=== PATIENT | male | born 1930 ===

== ENCOUNTER 2020-05-08 09:07 | Inpatient (IN) | payer MEDICARE ==
[~2020-05-08] VITALS: Ht 190.5 cm; Wt 100.9 kg
[2020-05-08] MEDS ORDERED: ONDANSETRON 4 MG (ZOFRAN) ORAL DISSOLVE TAB PO PRN (09:45)
[2020-05-08] MEDS ORDERED: FLEET ENEMA ADULT 1 EA BTL PR PRN (09:45)
[2020-05-08] MEDS ORDERED: diphenhydrAMINE 25 MG TAB (BENADRYL) PO PRN (09:45)
[2020-05-08] MEDS ORDERED: CALCIUM CARBONATE 500 MG (TUMS) TAB.CHEW PO PRN (09:45)
[2020-05-08] MEDS ORDERED: ALPRAZolam 0.25 MG (XANAX) TAB PO PRN (09:45)
[2020-05-08] MEDS ORDERED: LOPERAMIDE 2 MG (IMODIUM) TABLET PO PRN (09:45)
[2020-05-08] MEDS ORDERED: LACTULOSE SYRUP 10GM/15ML (ENULOSE) 30ML UDC PO PRN (09:45)
[2020-05-08] MEDS ORDERED: BISACODYL 10 MG SUPP (DULCOLAX) PR PRN (09:45)
[2020-05-08] MEDS ORDERED: guaiFENesin/CODEINE (ROBITUSSIN AC) 10ML UDC PO PRN (09:45)
[2020-05-08] MEDS ORDERED: MELATONIN 3 MG TABLET PO PRN (09:45)
--- NOTE | 2020-05-08 13:00 | NUR ---
ANA MARÍA ABRAHAM admitted to room 223 , with an admitting diagnosis of RIGHT MILDRED, on 05-08-20 from [facility] via WHEELCHAIR, accompanied by STAFF.ANA MARÍA ABRAHAM introduced to surroundings, call light, bed controls, phone, TV, temperature control, lights, meal times, smoking policy, visitor policy, side rail policy, bathrooms and showers. Patient Rights given to patient in the handbook.ANA MARÍA ABRAHAM verbalizes understanding that [facility] is not responsible for the loss or damage to any personal effects or valuables that are kept in the patients posession during their hospitalization. The following Patient Care Plans were discussed with the PT: Discharge Planning, IMPAIRED MOBILITY AND FALLS. ANA MARÍA ABRAHAM verbalizes understanding of Interdisciplinary Patient Education. Patient received Patient Rights Booklet, which includes Privacy Act Statement and Data Collection Information Summary.
[2020-05-08] MEDS ORDERED: WARF4TAB3 PO (13:13)
[2020-05-08] MEDS ORDERED: ACHD5005 PO (13:13)
[2020-05-08] MEDS ORDERED: LOSA50TA63 PO (13:13)
[2020-05-08] MEDS ORDERED: ISOS30TA3 PO (13:13)
[2020-05-08] MEDS ORDERED: CRV25T PO (13:13)
--- NOTE | 2020-05-08 13:14 | NUR ---
MED REC WAS ENTERED USING THE [place] DISCHARGE ORDERS Addendum: 05/13/20 at 1434 by ALPHONSO COSTA CPhT SPOKE WITH THE PT AND WENT THRU THE EXT MED HISTORY TO COMPLETE THE MED REC I REMOVED HYDROCODONE 5/325MG FROM THE MED REC DUE TO THE PT NOT TAKING PRIOR TO [facility] FUROSEMIDE 40MG PRN WAS ADDED TO THE MED REC DUE TO PT TAKING PRIOR TO HOSPITAL STAY FLOMAX 0.4MG WAS FILLED ON 05-04-2020 #30 HOWEVER PT IS NOT FAMILIAR WITH THIS MEDICATIONS- FOR THIS REASON I DID NOT INCLUDE ON THE MED REC
--- NOTE | 2020-05-08 14:47 | Physical Therapy Evaluation ---
PT Evaluation-General Medical Diagnosis Admission Date May 08, 2020 at 13:00 Medical Diagnosis: R MILDRED Onset Date: Apr 17, 2020 Therapy Diagnosis Therapy Diagnosis: Impaired mobility, strength and ROM Precautions Precautions/Isolations: Fall Prevention, Standard Precautions Referral Physician: Monty Reason for Referral: Evaluation/Treatment Medical History Additional Medical History fib, skin cancer, CAD with bypass of 5 vessels, depression, HTN, ventricular arrhythmia, pacemaker Reviewed History: Yes Social History Home: Single Level Current Living Status: Significant Other Entry Into Home: Ramp, Stairs With Railing PT Steps Into Home: 4 Prior Prior Level of Function SCALE: Activities may be completed with or without assistive devices. 8-Rxwflmaxhg-bsmtqpc completes the activity by him/herself with no assistance from a helper. 5-Set-up or Clean-up Assistance-helper sets up or cleans up; patient completes activity. [place] assists only prior to or following the activity. 4-Supervision or Touching Assistance-helper provides verbal cues and/or touching/steadying and/or contact guard assistance as patient completes activity. Assistance may be provided throughout the activity or intermittently. 3-Partial/Moderate Assistance-helper does LESS THAN HALF the effort. [place] lifts, holds or supports trunk or limbs, but provides less than half the effort. 2-Substantial/Maximal Assistance-helper does MORE THAN HALF the effort. [place] lifts or holds trunk or limbs and provides more than half the effort. 6-Ncfzqeuuc-okpmig does ALL the effort. Patient does none of the effort to complete the activity. Or, the assistance of 2 or more helpers is required for the patient to complete the activity. If activity was not attempted, code reason: 7-Patient Refused. 9-Not Applicable-not attempted and the patient did not perform the activity before the current illness, exacerbation or injury. 10-Not Attempted due to Environmental Limitations-(lack of equipment, weather restraints, etc.). 88-Not Attempted due to Medical Conditions or Safety Concerns. Bed Mobility: 6 Transfers (B,C,W/C): 6 Gait: 6 Stairs: 6 Wheelchair Mobility: 9 Indoor Mobility (Ambulation): Independent Stairs: Independent Prior Devices Use: Walker (4 wheeled) PT Evaluation-Current Subjective Pt presents sitting upright in vehicle. Pt agrees to PT. Pt reports no pain, but that pain in R hip can come on suddenly when standing. Pt/Family Goals Return to home Objective Patient Orientation: Person, Place, Time, Eyes Open, Situation ROM/Strength ROM Lower Extremities Limited R knee ext and hip precautions; otherwise WFL Strength Lower Extremities R Hip flex: 3/5 L Hip flex: 4/5 R Knee ext: 4/5 L Knee ext: 5/5 R Knee flex: 4/5 L Knee flex: 4/5 Sensory Vision: Wears Glasses Hearing: Functional Hand Dominance: Left Sensation Right Lower Extremit: Intact Sensation Left Lower Extremity: Intact Sensation Lower Extremities BLE sensation intact to light touch L2-S2 Transfers Roll Left to Right (QC): 6 Sit to Lying (QC): 3 Lying to Sitting/Side of Bed(Q: 3 Sit to Stand (QC): 3 Chair/Hqf-ui-Gtpll Xfer(QC): 3 Toilet Transfer (QC): 3 Car Transfer (QC): 3 Pt demonstrated bed rolling independently. Pt required min assist with sit<- >lying to act as handrail. Pt requires min assist with standing transfers. Pt reenacted car transfer using nustep as to not violate hip precautions. Gait Does the Patient Walk?: Yes Mode of Locomotion: Both Anticipated Mode of Locomotion: Walk Walk 10 feet (QC): 4 Walk 50 ft with 2 Turns(QC): 88 Walk 150 ft (QC): 88 Walking 10ft/uneven surface-QC: 3 Distance: 20' Gait Assistive Device: FWW Comments/Gait Description Pt fatigues quickly with ambulation; pt ambulates with B bent knees and is not consistent with touching R heel to ground. Wheelchair Training Does the Pt Use a Wheelchair?: Yes Distance: 150'x4 Wheel 50 ft with 2 turns (QC): 4 Wheel 150 ft (QC): 4 Type of Wheelchair: Manual Pt propels self using B UE but is slow at progression and appears to be fighting resistance with this Stairs 1 Step (curb) (QC): 88 4 Steps (QC): 88 12 Steps (QC): 88 Balance Sitting Static: Normal Sitting Dynamic: Normal Standing Static: Good Standing Dynamic: Fair Picking up an Object (QC): 88 Treatment Standing balance plus reaching in parallel bars Assessment/Needs Pt requires consistent reminders of hip precautions; pillow is placed between legs in WC and in bed to prevent IR. Pt requires momentum of forward trunk lean to stand up; this causes him to stand up bent over and then using UE to straighten trunk upright. Pt cued to standing with his knees straight but is unable to do so. Co-treated with OT due to patient's limitations in strength, mobility, and ability to coordinated UEs and LEs. Rehab Potential: Fair PT Short Term Goals Short Term Goals Time Frame: May 15, 2020 Roll Left & Right: 6 Sit to lyin Lying to sitting on side of be: 4 Sit to stand: 4 Chair/fgt-rx-njhab transfer: 4 Walk 10 feet: 4 Walk 50 feet with two turns: 4 1 step (curb): 3 PT Custodial Goals Custodial Goals PT Custodial Goals Time Frame: May 29, 2020 Roll Left & Right (QC): 6 Sit to Lying (QC): 6 Lying-Sitting on Side/Bed(QC): 6 Sit to Stand (QC): 6 Chair/Zhz-xi-Veqrf Xfer(QC): 6 Toilet Transfer (QC): 6 Car Transfer (QC): 6 Does the Patient Walk: Yes Walk 10 feet (QC): 4 Walk 50ft with 2 Turns (QC): 4 Walk 150 ft (QC): 4 Walking 10ft on Uneven Surface: 4 1 Step (curb) (QC): 4 4 Steps (QC): 4 12 Steps (QC): 88 Picking up an Object (QC): 4 Wheel 50 feet with 2 turns (QC: 6 Type: Manual Wheel 150 feet: 6 Type: Manual PT Plan Problem List Problem List: Activity Tolerance, Functional Strength, Safety, Balance, Gait, Transfer, Bed Mobility, ROM Treatment/Plan Treatment Plan: Continue Plan of Care Treatment Plan: Bed Mobility, Education, Functional Activity Manuela, Functional Strength, Group Therapy, Gait, Safety, Therapeutic Exercise, Transfers Treatment Duration: May 22, 2020 Frequency: At least 5 of 7 days/Wk (IRF) Estimated Hrs Per Day: 1.5 hours per day Patient and/or Family Agrees t: Yes Safety Risks/Education Patient Education: Gait Training, Transfer Techniques, Reviewed Precautions, Correct Positioning, W/C Management, Safety Issues Teaching Recipient: Patient Teaching Methods: Demonstration, Discussion Response to Teaching: Reinforcement Needed Discharge Recommendations Plan Pt will work on bed mobility, transfers, gait training, balance, and therapeutic exercise to address functional deficits. Therapy Discharge Recommendati: Home & Family Time/GCodes Time In: 1300 Time Out: 1440 Total Billed Treatment Time: 90 Total Billed Treatment 1 visit EVM 10' GT 20' NM 20' FA 40' 6830-4800 PT eval; 8513-0097 OT eval; [id number] co-treated with OT. PT assisted with transfers, gait training, and standing balance while OT assisted with ADLs and UE reaching. EAMON HENDRICKSON PT May 08, 2020 14:47
--- NOTE | 2020-05-08 15:19 | Occupational Therapy Eval ---
OT Evaluation-General/PLF Medical Diagnosis Admission Date May 08, 2020 at 13:00 Medical Diagnosis: R MILDRED Onset Date: May 08, 2020 Therapy Diagnosis Therapy Diagnosis: decreased ADL status, weakness Precautions Precautions/Isolations: Fall Prevention, Standard Precautions Comments hip precautions Weight Bear Status Weight Bearing Restriction: Weight Bearing/Tolerated Location Restriction: R LE Referral Physician: Monty Anderson Reason: Evaluation/Treatment Medical History Additional Medical History afib, skin cancer, CAD with bypass of 5 vessels, depression, HTN, ventricular arrhythmia, pacemaker Current History R MILDRED 04/17/2020 Social History Home: Single Level (mobile) Current Living Status: Significant Other Entry Into Home: Ramp, Stairs With Railing Steps Into Home: 4 ADL-Prior Level of Function SCALE: Activities may be completed with or without assistive devices. 8-Iygbrbvatf-vnjnfez completes the activity by him/herself with no assistance from a helper. 5-Set-up or Clean-up Assistance-helper sets up or cleans up; patient completes activity. [place] assists only prior to or following the activity. 4-Supervision or Touching Assistance-helper provides verbal cues and/or touching/steadying and/or contact guard assistance as patient completes activity. Assistance may be provided throughout the activity or intermittently. 3-Partial/Moderate Assistance-helper does LESS THAN HALF the effort. [place] lifts, holds or supports trunk or limbs, but provides less than half the effort. 2-Substantial/Maximal Assistance-helper does MORE THAN HALF the effort. [place] lifts or holds trunk or limbs and provides more than half the effort. 2-Frawisjvf-eecbqo does ALL the effort. Patient does none of the effort to complete the activity. Or, the assistance of 2 or more helpers is required for the patient to complete the activity. If activity was not attempted, code reason: 7-Patient Refused. 9-Not Applicable-not attempted and the patient did not perform the activity before the current illness, exacerbation or injury. 10-Not Attempted due to Environmental Limitations-(lack of equipment, weather restraints, etc.). 88-Not Attempted due to Medical Conditions or Safety Concerns. ADL PLOF Comments Pt indicates he was independent with all ADLS and functional mobility using FWW. He lives in a mobile home with his who he takes care of. Pt has a walk in shower with a shower chair, he indicates he is getting a hospital bed. Self Care: Independent Functional Cognition: Independent DME/Equipment: Bath Chair, Shower DME/Equipment Comments FWW OT Current Status Subjective Pt seated in w/c, agreeable to OT evaluation and tx. Pt indicates 0/10 pain at rest. Mental Status/Objective Patient Orientation: Person, Place, Time, Situation Current Glasses/Contacts: Yes Hearing Aids: No Dentures/Partials: No Hand Dominance: Left Upper Extremity ROM WFL Upper Extremity Coordination WFL Upper Extremity Sensation pt reports decreased sensation in fingertips Upper Extremity Strength grossly 4+/5 ADL-Treatment Eating (QC): 6 (Pt independent with using utensils, cutting food, and bringing food to his mouth.) Oral Hygiene (QC): 4 (Pt required verbal cues to maintain hip precautions during task, pt completed seated at sink) Shower/Bathe Self (QC): 7 (pt declined, stating he has already showered today.) Upper Body Dressing (QC): 7 Lower Body Dressing (QC): 7 On/Off Footwear (QC): 1 (based on clinical judgement and hip precautions, pt would require total assistance to maintain hip precautions) Toileting Hygiene (QC): 7 Other Treatments [id number] OT evaluation: OT educated pt on purpose and benefits of OT, he verbalized understanding. He then provided information about PLOF and home set up, then participated in UE screen. [id number] OT/PT cotreat: OT/PT cotreat due to skill of 2 clinicians required wh ich a rehabilitation therapist cannot perform in order to coordinate UE/LEs, maintain hip precautions throughout tx, and improve standing endurance and balance. OT focused on UE placement, cues for sequencing and safety, functional reaching while standing, and UE strength/endurance while PT focused on LE placement, gross overall movements, LE placement, transfers. Pt unable to recall any hip precautions, stating he was never educated on precautions. Pt seated in w/c in therapy gym, pt stood at w/c, using FWW over an uneven surface with w/c follow. During functional mobility on uneven surface, pts knees buckled requiring assistance to steady, pt regained balance, then sat in w/c for a rest break. Pt indicated his legs "gave out". After a rest break, pt then performed a simulated car transfer. Pt indicates he is tired, requiring another rest break. Pt attempted to perform functional mobility with w/c follow, but had difficulty straightening his knees and standing upright, even with skilled cues. Pt took a seated rest break in recliner. In order to increase BUE strength and functional, pt instructed to self propel w/c using UEs, with assistance to maintain straight line and through doorways. Pt required skilled cues to maintain hip precautions while seated, in order to assist pt with maintaining precautions a pillow was placed between pt's legs. Pt then sat at sink to brush his teeth, pt required skilled cues to maintain hip precautions as pt attempted to lean forward past 90* to the sink instead of using bucket provided to pt. Pt's lunch arrived and he ate a portion of a sandwich. Pt then taken back to therapy gym to parallel bars where he complete functional reaching activity to increase dynamic standing balance. PT assisted pt with standing at parallel bars, while OT completed reaching task with pt, pt completed 2 sets of stands, with x2 reaching with each hand. Pt able to stand for ~3 mins each trial. Pt returned to room, transferring to bed. Post OT/PT cotreat, pt laying in bed, call light in reach and all needs met. Education OT Patient Education: Correct positioning, Energy conservation, Exercise program, Modified ADL techniques, Progress toward Goal/Update tx plan, Purpose of tx/functional activities, Reviewed precautions, Rehab process, Safety issues, Transfer techniques Teaching Recipient: Patient Teaching Methods: Discussion Response to Teaching: Verbalize Understanding OT Chemical Tank Worker Goals Chemical Tank Worker Goals Time Frame: May 31, 2020 Eating (QC): 6 Oral Hygiene (QC): 6 Toileting Hygiene (QC): 6 Shower/Bathe Self (QC): 6 Upper Body Dressing (QC): 6 Lower Body Dressing (QC): 6 On/Off Footwear (QC): 6 Additional Goals: 1-Demonstrate ADL Tasks, 2-Verbalize Understanding, 3- ImproveStrength/Manuela 1=Demonstrate adherence to instructed precautions during ADL tasks. 2=Patient will verbalize/demonstrate understanding of assistive devices/modifications for ADL. 3=Patient will improve strength/tolerance for activity to enable patient to perform ADL's. OT Education/Plan Problem List/Assessment Assessment: Decreased Activ Tolerance, Decreased UE Strength, Impaired Funct Balance, Impaired I ADL's, Impaired Self-Care Skills Discharge Recommendations Plan/Recommendations: Continue POC Equpiment Recommendations-D/C: Hip Kit Treatment Plan/Plan of Care Patient would benefit from OT for education, treatment and training to promote independence in ADL's, mobility, safety and/or upper extremity function for ADL's. Plan of Care: ADL Retraining, Functional Mobility, Group Exercise/Act as Ind, UE Funct Exercise/Act Treatment Duration: May 31, 2020 Frequency: At least 5 of 7 days/Wk (IRF) Estimated Hrs Per Day: 1.5 hours per day Agreement: Yes Rehab Potential: Good Time/GCodes Start Time: 13:10 Stop Time: 14:40 Total Time Billed (hr/min): 90 Billed Treatment Time 1475-1559 OT evaluation, [id number] OT/PT cotreat 1, EVM (10'), ADL (15'), FA 4 (65') LEILANI CARSON OT May 08, 2020 15:19
[2020-05-08 15:21] VITALS: BP 143/65
[2020-05-08] MEDS ORDERED: FLU QUAD HIGH DOSE 240 MCG/0.7 ML 2020-21 (FLUZONE) IM ONE (15:45)
--- NOTE | 2020-05-08 16:19 | Progress Note ---
RICARDO MENDOZA MED STUDENT 05/08/20 1619: Progress Note HPI: This is an 89 YO male who had a right hip replacement by Dr. Power on 04/17 for osteoarthritis. He was initially discharged home, but had multiple falls and bec tova dehydrated. Pt was decreasing his fluid intake at home so he could limit having to go to the bathroom since he had a hard time getting around. Pt was admitted for rehydration in [place] and now comes to inpatient rehab to regain strength and mobility. Pt normally lives in a mobile home with his in [place], [place] and says they take care of each other. He is now having some pain in his right hip, but is able to ambulate with a walker, and complains of neuropathy. History limited by pt being a poor historian; pt easily gets distracted and goes off on tangents during conversation. PMHx: CAD with bypass of 5 vessels Cardiomyopathy, EF 30% HTN depression neuropathy Afib pacemaker Allergies/adverse rxns: Lisinopril Medications: Carvedilol Hydrocodone/Acetaminophen Isosorbide mononitrate Losartan Warfarin ROS: limited by pt being poor historian, but only complains of right hip pain Physical Exam: General: WD/SN, no acute distress Head: NC/AD Eyes: PERRL, EOMI ENT: normal external appearance, mucosa moist, nares patent Heart: irregularly irregular, no murmurs Lungs: no respiratory distress or accessory muscle use; CTAB Abdomen: soft, nontender, nondistended Extremities: multiple bruises on upper extremities; moves all extremities, limited on RLE Neuro/Psych: alert, awake, normal mood/affect, very talkative Assessment/Plan: Right hip replacement On Warfarin CAD w/ hx of CABG cardiomyopathy w/ reduced EF HTN Afib w/ pacemaker Advanced age REHAB/MEDICAL ASSESSMENT AND PLAN: REHAB IMPAIRMENT GROUP: Right hip dislocation The comorbidities that impact the patients function and/or functional outcome by: chronic pain/neuropathy, advanced age Rehab treatment will consist of: PT, OT will focus on improving strength, exercise tolerance, functional mobility, transfers, gait, balance, and coordination of upper and lower extremity movements. BARRIERS TO DISCHARGE: Pain, advanced age ESTIMATED LOS: 10-14 days DISPOSITION: Home PROGNOSIS: Fair REHABILITATION GOALS: 1. PT OT will focus on regaining strength, balance, coordination and exercise tolerance in order to return home to live independently with his . YANETH CASTRO DO 05/08/202101: Supervisory-Addendum Brief Verification & Attestation Participated in pt care: history, MDM, physical Personally performed: exam, history, MDM, supervision of care Care discussed with: Medical Student Procedures: n/a Results interpretation: Verified all documentation Verification and Attestation of Medical Student E/M Service A medical student performed and documented this service in my presence. I reviewed and verified all information documented by the medical student and made modifications to such information, when appropriate. I personally performed the physical exam and medical decision making. Yaneth Castro, May 08, 2020,21:02 RICARDO MENDOZA MED STUDENT May 08, 2020 16:19 YANETH CASTRO DO May 08, 2020 21:02
[2020-05-08] MEDS: ENOXAPARIN 40 MG/0.4 ML (LOVENOX) SYR SC SCH (17:05)
[2020-05-08 18:42] VITALS: BP 143/65
[2020-05-08] MEDS: polyethylene glycoL POWDER 17 GM (MIRALAX) PACK PO SCH (19:53)
[2020-05-08] MEDS: SENNA W/DOCUSATE (SENOKOT S) TABLET PO SCH (19:54)
[2020-05-08] MEDS: HYDROcodone/APAP 5 MG/325 MG (LORTAB) TAB PO PRN (20:24)
[2020-05-08] MEDS: CARVEDILOL 12.5 MG (COREG) TABLET PO SCH (20:24)
--- NOTE | 2020-05-08 21:06 | PM&R Post Admission Assessment ---
PM&R Date of Visit: May 08, 2020 Time of Visit: 14:00 History of Present Illness CC: Debility with falls HPI: This is an 89yoWM patient I transferred from [facility] after an observation stay for dehydration and falls since surgery 04/17/[address] Power on 04/17/20. PLOF was the use of AD at times due to pain in the right hip. Lives alone but family is involved. SLUMS was 9 at [facility] by [facility] screen. CC: Debility with multiple falls following right hip replacement HPI: This is an 89yoWM Pt known to me from consultation at [facility] after he underwent a right hip replacement on 04/17/[address] Power. It was all arranged for him to go to the inpatient rehab facility from discharge but he changed his mind and decided he didnt want to go but started having falls, severe weakness and overall decline in status and he was found to be dehydrated with severe weakness overall so he was placed on gentle IV fluids, checked labs, no evidence of any type of abnormality, INR 2.7 on Coumadin and the goal would be to move onto inpatient rehab which was successful today. Apparently later on I found out he previously had a UTI so I will check urine specimen and will continue all home medication except for Coumadin since his INR was super- therapeutic at 3.6 today. His prior level of functioning was independent and it is concerning that I had a SLUM score evaluated for the Pt and he score a 9/30, so we will need to have close monitoring for falls and impulsivity and dementia. HPI: This is an 89 YO male who had a right hip replacement by Dr. Power on 04/17 for osteoarthritis. He was initially discharged home, but had multiple falls and became dehydrated. Pt was decreasing his fluid intake at home so he could limit having to go to the bathroom since he had a hard time getting around. Pt was ad mitted for rehydration in [place] and now comes to inpatient rehab to regain strength and mobility. Pt normally lives in a mobile home with his in [place], [place] and says they take care of each other. He is now having some pain in his right hip, but is able to ambulate with a walker, and complains of neuropathy. History limited by pt being a poor historian; pt easily gets dist racted and goes off on tangents during conversation. PMHx: CAD with bypass of 5 vessels Cardiomyopathy, EF 30% HTN depression neuropathy Afib pacemaker Allergies/adverse rxns: Lisinopril Medications: Carvedilol Hydrocodone/Acetaminophen Isosorbide mononitrate Losartan Warfarin ROS: limited by pt being poor historian, but only complains of right hip pain Physical Exam: General: WD/SN, no acute distress Head: NC/AD Eyes: PERRL, EOMI ENT: normal external appearance, mucosa moist, nares patent Heart: irregularly irregular, no murmurs Lungs: no respiratory distress or accessory muscle use; CTAB Abdomen: soft, nontender, nondistended Extremities: multiple bruises on upper extremities; moves all extremities, limited on RLE Neuro/Psych: alert, awake, normal mood/affect, very talkative Assessment/Plan: Right hip replacement On Warfarin CAD w/ hx of CABG cardiomyopathy w/ reduced EF HTN Afib w/ pacemaker Advanced age REHAB/MEDICAL ASSESSMENT AND PLAN: REHAB IMPAIRMENT GROUP: Right hip dislocation The comorbidities that impact the patients function and/or functional outcome by: chronic pain/neuropathy, advanced age Rehab treatment will consist of: PT, OT will focus on improving strength, exercise tolerance, functional mobility, transfers, gait, balance, and coordination of upper and lower extremity movements. BARRIERS TO DISCHARGE: Pain, advanced age ESTIMATED LOS: 10-14 days DISPOSITION: Home PROGNOSIS: Fair REHABILITATION GOALS: 1. PT OT will focus on regaining strength, balance, coordination and exercise tolerance in order to return home to live independently with his . Past Gfiqeql-Kjrqrc-Aaxpmj Hx Past Med/Social Hx: Reviewed Nursing Past Med/Soc Hx, Reviewed and Corrections made Patient Social History Marrital Status: single Employed/Student: retired Alcohol Use: Denies Use Recreational Drug Use: No Smoking Status: Former Smoker Former Smoker, Quit: May 08, 1969 Physical Abuse Screen: No Sexual Abuse: No Recent Foreign Travel: No Contact w/other who traveled: No Recent Hopitalizations: Yes Recent Infectious Disease Expo: No Immunizations Up To Date Date of Pneumonia Vaccine: Apr 25, 2018 Seasonal Allergies Seasonal Allergies: No Past Medical History Currently Using CPAP: No Currently Using BIPAP: No Cardiac: Atrial Fibrillation, Hypertension Musculoskeletal: Arthritis Cancer: Skin What Type of Treatment Did You: Surgical Intervention Psychosocial: Depression History of Blood Disorders: No Prior Level of Function Bed Mobility: 6 Transfers: 6 Gait: 6 Stairs: 6 Wheelchair Mobility: 9 Indoor Mobility (Ambulation): Independent Stairs: Independent Prior Devices Use: Walker (4 wheeled) Self Care: Independent Functional Cognition: Independent Current Level of Fuctioning Roll Left to Right: 6 Sit to Lyin Lying to Sitting/Side of Bed: 3 Sit to Stand: 3 Chair/Hwz-hi-Cfnad Xfer: 3 Car Transfer: 3 Does the Patient Walk: Yes Mode of Locomotion: Both Anticipated Mode of Locomotion: Walk Walk 10 feet: 4 Walk 50 ft with 2 Turns: 88 Walk 150 ft: 88 Walking 10ft on uneven surface: 3 Gait Assistive Device: FWW Does the Pt Use a Wheelchair: Yes Wheelchair Distance: 150'x4 Wheel 50 ft with 2 turns: 4 Wheel 150 ft: 4 Type of Wheelchair: Manual 1 Step (curb): 88 4 Steps: 88 12 Steps: 88 Picking up an Object: 88 Eatin (Pt independent with using utensils, cutting food, and bringing food to his mouth.) Oral Hygiene: 4 (Pt required verbal cues to maintain hip precautions during task, pt completed seated at sink) Shower/Bathe Self: 7 (pt declined, stating he has already showered today.) Upper Body Dressin Lower Body Dressin On/Off Footwear: 1 (based on clinical judgement and hip precautions, pt would require total assistance to maintain hip precautions) Toileting Hygiene: 7 PM&R Allergy/Meds/Data Review Allergies Coded Allergies: lisinopril (Verified Allergy, Unknown, 05/08/20) Home Medications Scheduled Carvedilol (Coreg), 25 MG PO BID, (Reported) Isosorbide Mononitrate (Isosorbide Mononitrate ER), 30 MG PO DAILY, (Reported) Losartan Potassium (Losartan Potassium), 50 MG PO DAILY, (Reported) Warfarin Sodium (Warfarin Sodium), 4 MG PO HS, (Reported) Scheduled PRN Hydrocodone/Acetaminophen (Hydrocodone-Acetamin 5-325 mg), 1 EACH PO Q6H PRN for PAIN-MODERATE (5-7), (Reported) Current Medications Current Medications Reviewed Review of Systems Constitutional: see HPI, dizziness, weakness EENTM: no symptoms reported Respiratory: no symptoms reported Cardiovascular: no symptoms reported Gastrointestinal: no symptoms reported Genitourinary: no symptoms reported Musculoskeletal: back pain, joint pain Skin: no symptoms reported Psychiatric/Neurological: No Symptoms Reported All Other Systems Reviewed Negative Unless Noted: Yes Physical Exam Physical Exam Vital Signs Vital Signs - First Documented 05/08/20 15:21 Temp 36.8 Pulse 78 Resp 17 B/P (MAP) 143/65 (91) Pulse Ox 94 O2 Delivery Room Air Capillary Refill : NONE Height, Weight, BMI Height: '" Weight: lbs. oz. kg; 27.69 BMI Method: General Appearance: No Apparent Distress, WD/WN, Chronically ill Eyes: Bilateral Eye Normal Inspection, Bilateral Eye PERRL HEENT: PERRL/EOMI, Normal ENT Inspection, Pharynx Normal Neck: Full Range of Motion, Normal Inspection, Non Tender, Supple, Carotid Bruit Respiratory: Chest Non Tender, Lungs Clear, Normal Breath Sounds, No Accessory Muscle Use, No Respiratory Distress Cardiovascular: Regular Rate, Rhythm, No Edema, No Gallop, No JVD, No Murmur, Normal Peripheral Pulses Gastrointestinal: Normal Bowel Sounds, No Organomegaly, No Pulsatile Mass, Non Tender, Soft Back: Normal Inspection, No CVA Tenderness, No Vertebral Tenderness Extremity: Normal Capillary Refill, Normal Inspection, Normal Range of Motion, Non Tender, No Calf Tenderness, No Pedal Edema Neurologic/Psychiatric: Alert, Oriented x3, No Motor/Sensory Deficits, Normal Mood/Affect, social staff worker II-XII Norm as Tested, Abnormal Gait, Motor Weakness (right leg due to pain), Other (poor recall) Skin: Normal Color, Warm/Dry Lymphatic: No Adenopathy PM&R Medical Assessment & Plan REHAB/MEDICAL ASSESSMENT AND PLAN: REHAB IMPAIRMENT GROUP: Debility from right hip replacement ETIOLOGIC DIAGNOSIS: Debility from right hip replacement The comorbidities that impact the patients function and/or functional outcome by: Advanced age, SLUMS score of 9, fall risk, anticoagulation REHAB PLAN: The patient is being admitted to our comprehensive inpatient rehabilitation [facility] and can tolerate the intensity of service consisting of at least: 180 minutes of therapy a day, 5 out of 7 days a week Rehab treatment will consist of: PT OT will focus on regaining function and fall risk prevention and ST will help regain cognitive ability in order to try to decreased impulsiveness The patient/family has a good understanding of our discharge process and will benefit from an interdisciplinary inpatient rehabilitation program. The patient has potential to make improvement and is in need of at least two of the following multidisciplinary therapies including but not limited to physical, occupational, speech, and prosthetics and orthotics. Additionally the patient will need services from respiratory, nutritional services, wound care, psychology, etc. (Customize this to each patient). Given the patients complex condition and risk of further medical complications, rehabilitation services cannot be safely or effectively provided at a lower level of care such as a [facility]. BARRIERS TO DISCHARGE: Advanced age ESTIMATED LOS: 7 days DISPOSITION: Home RELEVANT CHANGES SINCE PREADMISSION SCREENING: I have compared the patients medical and functional status at the time of the preadmission screening and there are: no changes PROGNOSIS: Guarded REHABILITATION GOALS: 1.PT OT will focus on regaining function and fall risk prevention and ST will help regain cognitive ability in order to try to decreased impulsiveness All the above goals were reviewed with the patient and he/she is in agreement. By signing this document, I acknowledge that I have personally performed a full physical examination on this patient within 24 hours of admission to this inpatient rehabilitation facility and have determined the patient to be able to tolerate the above course of treatment at an intensive level for a reasonable period of time. I will be completing a detailed individualized Plan of Care for this patient by day #4 of the patients stay based upon the Preadmission Screen, the Post-Admission Evaluation, and the therapy evaluations. Admission Dx/Comorbidities: (1) Status post right hip replacement ICD Codes: Z96.641 - Presence of right artificial hip joint (2) Atrial fibrillation ICD Codes: I48.91 - Unspecified atrial fibrillation (3) On warfarin therapy ICD Codes: Z79.01 - watermaster (current) use of anticoagulants (4) Falls frequently ICD Codes: R29.6 - Repeated falls (5) Cognitive deficits ICD Codes: R41.89 - Other symptoms and signs involving cognitive functions and awareness (6) Hypertension ICD Codes: I10 - Essential (primary) hypertension (7) Anemia ICD Codes: D64.9 - Anemia, unspecified (8) Dehydration ICD Codes: E86.0 - Dehydration Assessment/Plan Assessment and Plan Assess & Plan/Chief Complaint Assessment: Debility Falls Right total hip replacement 04/17/20 AF Coumadin treatment SLUMS 9 HTN Anemia Plan: Monitor BP Monitor INR IRF protocol ELAINE CASTRO DO May 08, 2020 21:06
--- NOTE | 2020-05-09 05:48 | PM&R Progress Note ---
Subjective HPI/CC On Admission Date Seen by Provider: May 09, 2020 Time Seen by Provider: 10:30 Subjective/Events-last exam Patient settling in well Dementia noted and SLUMS was [address] testing increased from 9 when it was done [place] [facility] Delirium likely a component but baseline dementia is confirmed Impulsive and tried to get OOB last night Bed alarm in place INR 3.4 so holding Coumadin again tonight Iron level noted so will start Venofer due to severe anemia Checking TSH and B12 also Conferred with RN Reviewed therapy notes Checked meds and labs Review of Systems General: Fatigue, Malaise Musculoskeletal: leg pain Neurological: Weakness, Incoordination, Confusion Objective Exam Vital Signs Vital Signs Date Time Temp Pulse Resp B/P (MAP) Pulse Ox O2 Delivery O2 Flow Rate FiO2 05/10/20 05:04 36.7 70 16 156/74 (101) 94 Room Air Capillary Refill : Less Than 3 SecondsGreater Than 3 Seconds General Appearance: No Apparent Distress, WD/WN, Chronically ill HEENT: PERRL/EOMI, Normal ENT Inspection, Pharynx Normal Neck: Full Range of Motion, Normal Inspection, Non Tender, Supple, Carotid Bruit Respiratory: Chest Non Tender, Lungs Clear, Normal Breath Sounds, No Accessory Muscle Use, No Respiratory Distress Cardiovascular: Regular Rate, Rhythm, No Edema, No Gallop, No JVD, No Murmur, Normal Peripheral Pulses Gastrointestinal: Normal Bowel Sounds, No Organomegaly, No Pulsatile Mass, Non Tender, Soft Back: Normal Inspection, No CVA Tenderness, No Vertebral Tenderness Extremity: Normal Capillary Refill, Normal Inspection, Normal Range of Motion, Non Tender, No Calf Tenderness, No Pedal Edema Neurologic/Psychiatric: Alert, Oriented x3, No Motor/Sensory Deficits, Normal Mood/Affect, chief compressor station 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 FIM Transfers Therapy Code Descriptions/Definitions Functional [place] Measure: 0=Not Assessed/NA 4=Minimal Assistance 1=Total Assistance 5=Supervision or Setup 2=Maximal Assistance 6=Modified [place] 3=Moderate Assistance 7=Complete IndependenceSCALE: Activities may be completed with or without assistive devices. 5-Xlmgonrizo-lhcuxcd completes the activity by him/herself with no assistance from a helper. 5-Set-up or Clean-up Assistance-helper sets up or cleans up; patient completes activity. [place] assists only prior to or following the activity. 4-Supervision or Touching Assistance-helper provides verbal cues and/or touching/steadying and/or contact guard assistance as patient completes activity. Assistance may be provided throughout the activity or intermittently. 3-Partial/Moderate Assistance-helper does LESS THAN HALF the effort. [place] lifts, holds or supports trunk or limbs, but provides less than half the effort. 2-Substantial/Maximal Assistance-helper does MORE THAN HALF the effort. [place] lifts or holds trunk or limbs and provides more than half the effort. 6-Wyetgjsik-yzpafv does ALL the effort. Patient does none of the effort to complete the activity. Or, the assistance of 2 or more helpers is required for the patient to complete the activity. If activity was not attempted, code reason: 7-Patient Refused. 9-Not Applicable-not attempted and the patient did not perform the activity before the current illness, exacerbation or injury. 10-Not Attempted due to Environmental Limitations-(lack of equipment, weather restraints, etc.). 88-Not Attempted due to Medical Conditions or Safety Concerns. Roll Left to Right (QC): 6 Sit to Lying (QC): 3 Sit to Stand (QC): 3 Chair/Kph-wr-Olbde Xfer(QC): 3 Car Transfer (QC): 3 Gait Training Does the Patient Walk?: Yes Walk 10 feet (QC): 4 Walk 50 ft with 2 Turns(QC): 88 Walk 150 ft (QC): 88 Walking 10ft/uneven surface-QC: 3 Gait Assistive Device: FWW Wheelchair Training Does the Pt Use a Wheelchair?: Yes Distance: 150'x4 Wheel 50 ft with 2 turns (QC): 4 Wheel 150 ft (QC): 4 Type of Wheelchair: Manual Stair Training 1 Step (curb) (QC): 88 4 Steps (QC): 88 12 Steps (QC): 88 Balance Picking up an Object (QC): 88 ADL-Treatment Eating (QC): 6 (Pt independent with using utensils, cutting food, and bringing food to his mouth.) Oral Hygiene (QC): 4 (Pt required verbal cues to maintain hip precautions during task, pt completed seated at sink) Shower/Bathe Self (QC): 7 (pt declined, stating he has already showered today.) Upper Body Dressing (QC): 7 Lower Body Dressing (QC): 7 On/Off Footwear (QC): 1 (based on clinical judgement and hip precautions, pt would require total assistance to maintain hip precautions) Toileting Hygiene (QC): 7 Assessment/Plan Assessment and Plan Assess & Plan/Chief Complaint Assessment: Debility Falls Right total hip replacement 04/17/20 AF Coumadin treatment SLUMS 9 HTN Anemia Plan: Monitor BP Monitor INR IRF protocol 05/09/20: Venofer for low iron and anemia Check B12 and TSH due to dementia Supportive care BM regimen (1) Status post right hip replacement (2) Atrial fibrillation (3) On warfarin therapy (4) Falls frequently (5) Cognitive deficits (6) Hypertension (7) Anemia (8) Dehydration ELAINE CASTRO DO May 09, 2020 05:48
--- NOTE | 2020-05-09 05:48 | Individualized Plan of Care ---
Individualized Plan of Care Rehab Nursing IPOC Order Admission Date May 08, 2020 at 13:00 Current Orders Orders Admission Order(Inpt,Obs,Sdc) (05/08/20 09:37) Vital Signs: Per Unit Policy ( ,16,00 (05/08/20 09:37) Carlyle Sinha 09,21 (05/08/20 09:37) Sequential Compression Device Q4H (05/08/20 09:37) Machine Stonecutter-Inpt Rehab Con (05/08/20 09:37) Rehab Nursing Orders-Ipoc (05/08/20 09:37) Physical Therapy Rehab Orders (05/08/20 09:37) Occupational Therapy Rehab Ord (05/08/20 09:37) Speech Therapy Rehab Orders (05/08/20:37) Cbc With Automated Diff (05/09/20 06:00) Comprehensive Metabolic Panel (05/09/20 06:00) Intake & Output 06,14,22 (05/08/20 09:37) Precautions (Aru) (05/08/20 09:37) Rehab-Intensity Of Therapy (05/08/20 09:37) Initiate Admission Nursing Pro .admission (05/08/20 09:37) Code/Resuscitation (05/08/20:37) Initiate Admission Nursing Pro .admission (05/08/20 09:37) Vital Signs: Per Unit Policy ( 08,16,00 (05/08/20 09:37) Intake & Output 06,14,22 (05/08/20 09:37) Initiate Admission Nursing Pro .admission (05/08/20 09:37) Alprazolam Tablet (Xanax Tablet) (05/08/20 09:45) Calcium Carbonate Chew Tablet (Antacid C (05/08/20 09:45) Diphenhydramine Tablet (Benadryl Tablet) (05/08/20 09:45) Docusate Sodium Capsule (Colace Capsule) (05/08/20 09:45) Bisacodyl Suppository (Dulcolax Supposit (05/08/20 09:45) Lactulose Oral Solution (Enulose Oral So (05/08/20 09:45) Na Phos/Na Biphos Enema (Fleet Enema Dandy (05/08/20 09:45) Guaifenesin/Codeine Syrup (Robitussin Ac (05/08/20 09:45) Loperamide Tablet (Imodium Tablet) (05/08/20 09:45) Enoxaparin Injection (Lovenox Injection) (05/08/20 09:45) Melatonin Tablet (Melatonin Tablet) (05/08/20 09:45) Polyethylene Glycol Powder Pkt (Miralax (05/08/20 21:00) Ondansetron Oral Dissolve Tab (Zofran (05/08/20 09:45) Senna S Tablet (Senokot S Tablet) (05/08/20 21:00) Protime With Inr (05/09/20 06:00) Admission Arrival Bed Request (05/08/20 13:17) General/Regular (05/08/20 Lunch) Flu Quad High Dose [id number] (Fluzone Hi (05/08/20 15:45) Ambulate 08,12,20 (05/08/20 16:28) Sequential Compression Device Q4H (05/08/20 16:28) Dvt/Vte Risk - Notifiy Physici Q4H (05/08/20 16:28) Hydrocodone/Apap 5/325 Tablet (Lortab 5 (05/08/20 19:00) Isosorbide Mononitrate Tablet (Imdur Tab (05/09/20 09:00) Losartan Tablet (Cozaar Tablet) (05/09/20 09:00) Carvedilol Tablet (Coreg Tablet) (05/08/20 21:00) Patient Visit (05/08/20 ) Pt Eval Moderate Complexity (05/08/20 ) Gait Training, Ea 15 Min (05/08/20 ) Ex Neuromuscular, Ea 15 Min (05/08/20 ) Functional Activities, Ea 15 (05/08/20 ) Iron Test (Fe) (05/09/20 10:25) Patient Visit (05/09/20 ) Exercise Therap, Ea 15 Min (05/09/20 ) Functional Activities, Ea 15 (05/09/20 ) Patient Visit (05/09/20 ) Speech Sound Lang Comp (05/09/20 ) Treat. Speech/Lang/Voice (05/09/20 ) Patient Visit (05/09/20 ) Exercise Therap, Ea 15 Min (05/09/20 ) Functional Activities, Ea 15 (05/09/20 ) Protime With Inr (05/10/20 05:07) Iron Sucrose Injection (Venofer Injectio (05/10/20 09:00) Vitamin B 12 (05/10/20 05:08) Thyroid Stimulating Hormone (05/10/20 05:08) Rehab Nursing Orders: Ongoing Assess. of Cognitive Status, Ongoing Assess. of Function Status, Bladder Management, Bladder Scan, Bladder Training, Bowel Management, Bowel Training, Disease Management & Educaiton, DVT Prophylaxis, Fall Prevention, Fluid/Electrolyte/Nutrition Mgmt, Infection Prevention, Medication Management & Education, Management of Risks & Complications, Nutrition Management, Pain Management, Patient/Family Support, Safety Management Intensity of Therapy to be met Patient to be seen: Min.3h per day/5 of 7d PT IPOC Problem List: Activity Tolerance, Functional Strength, Safety, Balance, Gait, Transfer, Bed Mobility, ROM Treatment Plan: Continue Plan of Care Bed Mobility, Education, Functional Activity Manuela, Functional Strength, Group Therapy, Gait, Safety, Therapeutic Exercise, Transfers Treatment Duration: May 22, 2020 Frequency: At least 5 of 7 days/Wk (IRF) Estimated Hrs Per Day: 1.5 hours per day OT IPOC Problems: Decreased Activ Tolerance, Decreased UE Strength, Impaired Funct Balance, Impaired I ADL's, Impaired Self-Care Skills OT Treatment, Training and Edu: Yes Plan of Care: ADL Retraining, Functional Mobility, Group Exercise/Act as Ind, UE Funct Exercise/Act Treatment Duration: May 31, 2020 Frequency: At least 5 of 7 days/Wk (IRF) Estimated Hrs Per Day: 1.[address] IPOC Speech Therapy Treatment Plan: Continue Plan of Care Treatment Duration: May 09, 2020 Frequency: 3 times per week Estimated Hrs Per Day: Other Machine Stonecutter/Case Mgmt Machine Stonecutter/Case Managemen: Discharge Planning Dietitian/Electric Mule Driver Dietitian/Electric Mule Driver to monitor nutritional status and make changes and/or re commendations as needed and work with speech pathology on dietary upgrades as the occur. Physician IPOC Medical Issues being managed closely and that require the 24 hour availability of a physician: Recent hip replacement now with increased falls and noted confusion c/w dementia in need of close monitoring for falls with fractures Medical Issues: Bowel/Bladder Function, DVT Prophylaxis, Falls Precautions, Fluid/Electrolyte/Nutrition Balance, Infection Protection, Pain Management Brief Synthesis of Preadmission Screen, Post-Admission Evaluation, and Therapy Evaluations: PT OT will focus on regaining function of right leg s/p replacement along with regaining ADL independence and fall risk prevention along with ST to focus on cognition. Medical Prognosis: Good Anticipated Length of Stay: 7 days ELAINE CASTRO DO May 09, 2020 05:48
[2020-05-09 05:52] VITALS: BP 167/75
[2020-05-09 06:46] LABS: BASOPHILS # (AUTO) 0.1 10^3/uL (0.0-0.1); BASOPHILS % (AUTO) 1 % (0-10); EOSINOPHILS # (AUTO) 0.4 10^3/uL (0.0-0.3); EOSINOPHILS % (AUTO) 7 % (0-10); HEMATOCRIT 28 % (40-54); HEMOGLOBIN 8.8 g/dL (13.3-17.7); LYMPHOCYTES % (AUTO) 17 % (12-44); MEAN CORPUSCULAR HEMOGLOBIN 29 pg (25-34); MEAN CORPUSCULAR HGB CONC 32 g/dL (32-36); MEAN CORPUSCULAR VOLUME 90 fL (80-99); MEAN PLATELET VOLUME 10.1 fL (9.0-12.2); MONOCYTES # (AUTO) 0.6 10^3/uL (0.0-1.0); MONOCYTES % (AUTO) 10 % (0-12); NEUTROPHILS # (AUTO) 3.9 10^3/uL (1.8-7.8); NEUTROPHILS % (AUTO) 65 % (42-75); PLATELET COUNT 284 10^3/uL (130-400)
[2020-05-09 06:57] LABS: INR 3.4 (0.8-1.4)
[2020-05-09 07:07] LABS: ALANINE AMINOTRANSFERASE 15 U/L (0-55); ALBUMIN 3.3 GM/DL (3.2-4.5); ALKALINE PHOSPHATASE 89 U/L (40-136); BILIRUBIN,TOTAL 0.6 MG/DL (0.1-1.0); BUN/CREATININE RATIO 21; CALCIUM 8.5 MG/DL (8.5-10.1); CARBON DIOXIDE 23 MMOL/L (21-32); CHLORIDE 106 MMOL/L (98-107); GFR ESTIMATED > 60; GLUCOSE 120 MG/DL (70-105); POTASSIUM 3.8 MMOL/L (3.6-5.0); SODIUM 138 MMOL/L (135-145); TOTAL PROTEIN 6.4 GM/DL (6.4-8.2)
[2020-05-09] MEDS: LOSARTAN 50 MG (COZAAR) TAB PO SCH (08:16)
[2020-05-09] MEDS: SENNA W/DOCUSATE (SENOKOT S) TABLET PO SCH ×2 (08:16→21:21)
[2020-05-09] MEDS: polyethylene glycoL POWDER 17 GM (MIRALAX) PACK PO SCH ×2 (08:17→21:21)
[2020-05-09] MEDS: ISOSORBIDE MONONITRATE 30 MG (IMDUR) TAB PO SCH (08:17)
[2020-05-09] MEDS: CARVEDILOL 12.5 MG (COREG) TABLET PO SCH ×2 (08:21→21:21)
[2020-05-09] MEDS: ENOXAPARIN 40 MG/0.4 ML (LOVENOX) SYR SC SCH (08:29)
--- NOTE | 2020-05-09 09:26 | Occupational Ther Daily Note ---
OT Current Status-Daily Note Subjective Pt seated in recliner, agreeable to OT tx with moderate encouragement. Pt able to recall 0/3 precautions at start of session, requiring max cues to adhere to precautions. Pt indicates that if his hip is hurting, he doesn't care about the precautions and he will move it however he wants to. OT educated pt on the purpose of his precautions but pt still reluctant. ADL-Treatment Therapy Code Descriptions/Definitions Functional [place] Measure: 0=Not Assessed/NA 4=Minimal Assistance 1=Total Assistance 5=Supervision or Setup 2=Maximal Assistance 6=Modified [place] 3=Moderate Assistance 7=Complete IndependenceSCALE: Activities may be completed with or without assistive devices. 2-Bwpcqpmebk-hdiciet completes the activity by him/herself with no assistance from a helper. 5-Set-up or Clean-up Assistance-helper sets up or cleans up; patient completes activity. Gay assists only prior to or following the activity. 4-Supervision or Touching Assistance-helper provides verbal cues and/or touching/steadying and/or contact guard assistance as patient completes activity. Assistance may be provided throughout the activity or intermittently. 3-Partial/Moderate Assistance-helper does LESS THAN HALF the effort. Gay lifts, holds or supports trunk or limbs, but provides less than half the effort. 2-Substantial/Maximal Assistance-helper does MORE THAN HALF the effort. Gay lifts or holds trunk or limbs and provides more than half the effort. 5-Tejubgfod-tmvaga does ALL the effort. Patient does none of the effort to complete the activity. Or, the assistance of 2 or more helpers is required for the patient to complete the activity. If activity was not attempted, code reason: 7-Patient Refused. 9-Not Applicable-not attempted and the patient did not perform the activity before the current illness, exacerbation or injury. 10-Not Attempted due to Environmental Limitations-(lack of equipment, weather restraints, etc.). 88-Not Attempted due to Medical Conditions or Safety Concerns. Eating (QC): 6 (Pt indicates he had no difficulty with eating breakfast.) Shower/Bathe Self (QC): 3 (Pt required assistance with washing BLE lower legs and feet, as well as min A for balance in stand at GBs. Pt able to wash upper body, periarea, and buttocks in sitting.) Upper Body Dressing (QC): 5 (set up) Lower Body Dressing (QC): 1 (Pt required assistance with all parts of doffing with mod A standing balance at FWW. OT assisted pt with threading BLEs into pants and managing pants up in stand.) On/Off Footwear: 1 (total assist doffing/donning gripper socks.) Toileting Hygiene (QC): 2 (Pt required assistance with clothing management in stand, pt able to complete pericare and hygiene in sitting.) Other Treatment Pt seated in recliner, OT showed pt AE for lower body dressing, pt indicates he has not seen these tools before. Pt completed sit to stand with min A. Pt used FWW to ambulate into restroom using FWW with min A. Pt transferred onto shower chair, requiring mod cues for sequencing and safety during transfer. Pt completed shower seated on MD, OT assisted pt with washing BLE lower legs and feet. Pt attempted to stand at GBs to wash buttocks, but was unable to wash in standing due to poor standing balance. Pt able to use shower head to rinse his body, rinsing all parts multiple times. Pt sat back on SC and able to wash buttocks seated. Pt required moderate cues during shower for sequencing and to adhere to hip precautions. Pt completed dressing at MD, then stood at FWW to transfer to w/c. Pt required moderate assist with SC to w/c transfer using FWW. Pt then taken to his recliner, transferring from w/c to recliner using FWW with min A, and moderate cues for sequencing. Post OT tx, pt seated in recliner, call light in reach and all needs met. Education OT Patient Education: Correct positioning, Energy conservation, Modified ADL techniques, Progress toward Goal/Update tx plan, Purpose of tx/functional activities, Reviewed precautions, Safety issues, Transfer techniques Teaching Recipient: Patient Teaching Methods: Discussion Response to Teaching: Reinforcement Needed OT Sound Effects Technician Goals Sound Effects Technician Goals Time Frame: May 31, 2020 Eating (QC): 6 Oral Hygiene (QC): 6 Toileting Hygiene (QC): 6 Shower/Bathe Self (QC): 6 Upper Body Dressing (QC): 6 Lower Body Dressing (QC): 6 On/Off Footwear (QC): 6 Additional Goals: 1-Demonstrate ADL Tasks, 2-Verbalize Understanding, 3- ImproveStrength/Manuela 1=Demonstrate adherence to instructed precautions during ADL tasks. 2=Patient will verbalize/demonstrate understanding of assistive devices/mo difications for ADL. 3=Patient will improve strength/tolerance for activity to enable patient to perform ADL's. OT Education/Plan Problem List/Assessment Assessment: Decreased Activ Tolerance, Decreased Safety Aware, Decreased UE Strength, Impaired Cognition, Impaired Funct Balance, Impaired I ADL's, Impaired Self-Care Skills, Restricted Funct UE ROM Discharge Recommendations Plan/Recommendations: Continue POC Treatment Plan/Plan of Care Patient would benefit from OT for education, treatment and training to promote independence in ADL's, mobility, safety and/or upper extremity function for ADL's. Plan of Care: ADL Retraining, Functional Mobility, Group Exercise/Act as Ind, UE Funct Exercise/Act Treatment Duration: May 31, 2020 Frequency: At least 5 of 7 days/Wk (IRF) Estimated Hrs Per Day: 1.5 hours per day Agreement: Yes Rehab Potential: Fair Time/GCodes Start Time: 08:00 Stop Time: 09:15 Total Time Billed (hr/min): 75 Billed Treatment Time 1, ADL 5 LEILANI CARSON OT May 09, 2020 09:26
--- NOTE | 2020-05-09 10:35 | ST Cognitive Linguistic Eval ---
Speech Evaluation-General Medical Diagnosis R MILDRED Therapy Diagnosis Therapy Diagnosis: Cognitive-communication Referral Referring Physician: Dr. Millan Medical History Pertinent Medical History: CAD, HTN Reviewed History: Yes Social History Current Living Status: Significant Other Speech PLF-Current Status Prior Level of Function Patient lives in his own home in [place], [place] with his where he was independent for much of his daily needs. Subjective Patient was pleasant and cooperative with the the cognitive assessment. Language Eval: Auditory Comprehends Simple Yes/No Ques: Functional Indent/Objects Multiple Alberts: Functional Ident/Pics in Multiple Alberts: Functional Follows 1-Step Commands: Functional Follows Complex Directions: Moderate Follows General Conversations: Mild Language Eval: Verbal Language Completes Spontaneous Greeting: Functional Produces Auto, Serial Info: Functional Imitates Simple Words/Phrases: Functional Word Finding: Mild Requests Basic Needs: Functional States Basic Personal Info: Mild Expresses Complex Ideas: Moderate Objective Cognitive Domain Attention: Mild Memory: Moderate Problem Solving: Mild Executive Functions: Moderate Visuospatial Skills: Mild Composite Severity Rating: Moderate Clock Drawing Severity Rating: Mild Objective Formal/Standardized Tests [facility] ([facility]) Results 14/30, Moderate Dementia range of function Oral Motor/Speech Production Within Normal Limits Impression Patient is a pleasantly confused 89 y/o man who was brought to rehab following a hip replacement approximately 3 weeks ago. The patient was given the [facility] for cognitive assessment with a score of 14/30 obtained. The patient's score is within the moderate dementia range of function. The patient will receive skilled ST for improving cognitive level of function. Therapy focus will be on memory, safety awareness and problem solving so that he may return home at a safer level of function. Speech Patient Assess Expression of Ideas/Wants: Frequently (2) Understanding Verbal Content: Usually Understands (3) Brief Interview-Mental Status: Yes Repetition of Three Words: Three (3) Temporal Orientation: Year: Correct (3) Temporal Orientation: Month: Accurate within 5 days(2) Temporal Orientation: Day: Correct (1) Recall : Wear to say "Sock": No, could not recall (0) Recall : Color: No, could not recall (0) Recall : Bed: Yes,after cueing (1) Memory/Recall Ability: Current season, That he or she is in a hsp/hsp unit Speech Short Term Goals Short Term Goals Short Term Goals 1) Patient will complete memory tasks related to his daily needs at 80% or greater with minimal cues. 2) Patient will complete safety awareness tasks related to his daily needs at 8 0% or greater with minimal cues. 3) Patient will complete problem solving tasks related to his daily needs at 80% or greater with minimal cues. 4) Patient will attend to task at 80% or greater for improving level of function. Speech Executive Director Goals Executive Director Goals Patient will improve cognitive-communication abilities in order to complete daily tasks with minimal assist. Speech-Plan Patient/Family Goals Patient/Family Goals: Patient plans on returning to his home where he lives with his . Treatment Plan Speech Therapy Treatment Plan: Continue Plan of Care Treatment Duration: May 23, 2020 Frequency: 4 times per week (Patient will receive skilled ST 4-5x per week) Estimated Hrs Per Day: .5 hour per day Rehab Potential: Fair Barriers to Learning: Patient's cognitive deficits, age, medical status Pt/Family Agrees to Plan: Yes Safety Risks/Education Teaching Recipient: Patient Teaching Methods: Discussion Response to Teaching: Verbalize Understanding Education Topics Provided: Safety within his room and communication of wants/needs Time Speech Therapy Time In: 10:00 Speech Therapy Time Out: 10:30 Total Billed Time: 30 Billed Treatment Time 1, MILO TURPIN [address] ST May 09, 2020 10:35
--- NOTE | 2020-05-09 12:16 | Physical Therapy Daily Note ---
PT Daily Note-Current Subjective Pt sitting in recliner upon arrival. Pt agrees to PT. Pain Numeric Pain Scale: 4 Location: Right Location Body Site: Hip Pain Description: Ache Mental Status Patient Orientation: Person, Place Transfers SCALE: Activities may be completed with or without assistive devices. 5-Ocpksvzifw-pfstxdj completes the activity by him/herself with no assistance from a helper. 5-Set-up or Clean-up Assistance-helper sets up or cleans up; patient completes activity. [place] assists only prior to or following the activity. 4-Supervision or Touching Assistance-helper provides verbal cues and/or touching/steadying and/or contact guard assistance as patient completes activity. Assistance may be provided throughout the activity or intermittently. 3-Partial/Moderate Assistance-helper does LESS THAN HALF the effort. [place] lifts, holds or supports trunk or limbs, but provides less than half the effort. 2-Substantial/Maximal Assistance-helper does MORE THAN HALF the effort. [place] lifts or holds trunk or limbs and provides more than half the effort. 0-Uynoxtalq-xbednz does ALL the effort. Patient does none of the effort to complete the activity. Or, the assistance of 2 or more helpers is required for the patient to complete the activity. If activity was not attempted, code reason: 7-Patient Refused. 9-Not Applicable-not attempted and the patient did not perform the activity before the current illness, exacerbation or injury. 10-Not Attempted due to Environmental Limitations-(lack of equipment, weather restraints, etc.). 88-Not Attempted due to Medical Conditions or Safety Concerns. Weight Bearing Weight Bearing/Tolerated Full Weight Bearing Exercises Supine Ex: Ankle pumps, Quad Set, Glut sets, Heel Slides, Hip abd/add Supine Reps: 15 Treatments Pt is reminded of Hip Precautions as pt is not maintaining jeanette. not bending to more than 90 degrees. Pt completes Supine EX with LINING PRINTER giving VC for Hip Precautions. Pt is difficult to keep on task. Pt resting at end of tx, all needs met & call light in hand. Assessment Current Status: Fair Progress Pt does not retain info well (Hip Precautions, why we need masks). PT Short Term Goals Short Term Goals Time Frame: May 15, 2020 Roll Left & Right: 6 Sit to lyin Lying to sitting on side of be: 4 Sit to stand: 4 Chair/hkd-mz-ibsdp transfer: 4 Walk 10 feet: 4 Walk 50 feet with two turns: 4 1 step (curb): 3 PT Nursing Home Goals Nursing Home Goals PT Technical Sales Representatives Goals Time Frame: May 29, 2020 Roll Left & Right (QC): 6 Sit to Lying (QC): 6 Lying-Sitting on Side/Bed(QC): 6 Sit to Stand (QC): 6 Chair/Jho-rv-Ynmnz Xfer(QC): 6 Toilet Transfer (QC): 6 Car Transfer (QC): 6 Does the Patient Walk: Yes Walk 10 feet (QC): 4 Walk 50ft with 2 Turns (QC): 4 Walk 150 ft (QC): 4 Walking 10ft on Uneven Surface: 4 1 Step (curb) (QC): 4 4 Steps (QC): 4 12 Steps (QC): 88 Picking up an Object (QC): 4 Wheel 50 feet with 2 turns (QC: 6 Type: Manual Wheel 150 feet: 6 Type: Manual PT Plan Problem List Problem List: Activity Tolerance, Functional Strength, Safety Treatment/Plan Treatment Plan: Continue Plan of Care Treatment Plan: Bed Mobility, Education, Functional Activity Manuela, Functional Strength, Group Therapy, Gait, Safety, Therapeutic Exercise, Transfers Treatment Duration: May 22, 2020 Frequency: At least 5 of 7 days/Wk (IRF) Estimated Hrs Per Day: 1.5 hours per day Patient and/or Family Agrees t: Yes Safety Risks/Education Patient Education: Reviewed Precautions, Correct Positioning, Safety Issues Teaching Recipient: Patient Teaching Methods: Discussion Response to Teaching: Reinforcement Needed Time/GCodes Time In: 1100 Time Out: 1145 Total Billed Treatment Time: 45 Total Billed Treatment 1, FA x2 (25m) & EX (20m) KJ BARGER PTA May 09, 2020 12:16
--- NOTE | 2020-05-09 13:38 | Physical Therapy Daily Note ---
PT Daily Note-Current Subjective Patient in recliner pre tx, agrees to PT, has 4/10 pain in right hip. Appearance Patient in recliner post tx with nurse call, phone, tray, chair alarm on. Mental Status Patient Orientation: Person, Place, Situation Transfers SCALE: Activities may be completed with or without assistive devices. 9-Qzqbxrgbyp-lvakpej completes the activity by him/herself with no assistance from a helper. 5-Set-up or Clean-up Assistance-helper sets up or cleans up; patient completes activity. [place] assists only prior to or following the activity. 4-Supervision or Touching Assistance-helper provides verbal cues and/or t ouching/steadying and/or contact guard assistance as patient completes activity. Assistance may be provided throughout the activity or intermittently. 3-Partial/Moderate Assistance-helper does LESS THAN HALF the effort. [place] lifts, holds or supports trunk or limbs, but provides less than half the effort. 2-Substantial/Maximal Assistance-helper does MORE THAN HALF the effort. [place] lifts or holds trunk or limbs and provides more than half the effort. 3-Bzjnitcoa-vcxlcb does ALL the effort. Patient does none of the effort to complete the activity. Or, the assistance of 2 or more helpers is required for the patient to complete the activity. If activity was not attempted, code reason: 7-Patient Refused. 9-Not Applicable-not attempted and the patient did not perform the activity before the current illness, exacerbation or injury. 10-Not Attempted due to Environmental Limitations-(lack of equipment, weather restraints, etc.). 88-Not Attempted due to Medical Conditions or Safety Concerns. Sit to Stand (QC): 3 Chair/Zjm-iw-Pdmlg Xfer(QC): 4 Weight Bearing Weight Bearing/Tolerated Full Weight Bearing Gait Training Distance: 35'x2 Walk 10 feet (QC): 4 Gait Assistive Device: FWW Slow ambulation, poor weight bearing on right leg, poor heel strike, right knee lela occasionally. Exercises Seated Therapy Exercises: Ankle pumps, Long arc quads Seated Reps: 20 Treatments transfers, ambulation, functional strengthening Assessment Current Status: Fair Progress Patient needs frequent rest breaks. Patient seems focused on his pain and states that if it is too much he isn't going to do anything and would rather . PT Short Term Goals Short Term Goals Time Frame: May 15, 2020 Roll Left & Right: 6 Sit to lyin Lying to sitting on side of be: 4 Sit to stand: 4 Chair/hhh-zx-tylyl transfer: 4 Walk 10 feet: 4 Walk 50 feet with two turns: 4 1 step (curb): 3 PT Custodial Goals Blade Grader Operator Goals PT Custodial Goals Time Frame: May 29, 2020 Roll Left & Right (QC): 6 Sit to Lying (QC): 6 Lying-Sitting on Side/Bed(QC): 6 Sit to Stand (QC): 6 Chair/Zmf-uu-Lcggt Xfer(QC): 6 Toilet Transfer (QC): 6 Car Transfer (QC): 6 Does the Patient Walk: Yes Walk 10 feet (QC): 4 Walk 50ft with 2 Turns (QC): 4 Walk 150 ft (QC): 4 Walking 10ft on Uneven Surface: 4 1 Step (curb) (QC): 4 4 Steps (QC): 4 12 Steps (QC): 88 Picking up an Object (QC): 4 Wheel 50 feet with 2 turns (QC: 6 Type: Manual Wheel 150 feet: 6 Type: Manual PT Plan Problem List Problem List: Activity Tolerance, Functional Strength, Safety, Balance, Gait, Transfer, Bed Mobility, ROM Treatment/Plan Treatment Plan: Continue Plan of Care Treatment Plan: Bed Mobility, Education, Functional Activity Manuela, Functional Strength, Group Therapy, Gait, Safety, Therapeutic Exercise, Transfers Treatment Duration: May 22, 2020 Frequency: At least 5 of 7 days/Wk (IRF) Estimated Hrs Per Day: 1.5 hours per day Patient and/or Family Agrees t: Yes Safety Risks/Education Patient Education: Gait Training, Transfer Techniques, Correct Positioning, Safety Issues Teaching Recipient: Patient Teaching Methods: Demonstration, Discussion Response to Teaching: Reinforcement Needed Time/GCodes Time In: 1300 Time Out: 1330 Total Billed Treatment Time: 30 Total Billed Treatment 1 visit EX 10' FA 20' EAMON HENDRICKSON PT May 09, 2020 13:38
--- NOTE | 2020-05-09 14:38 | NUR ---
RD ASSESSMENT PMHx: CAD; HTN; afib; PT INTERACTION: Pt was awake and pleasant during nutrition assessment. Pt states current appetite is "bad, but it's good normally." Note avg PO intake <25% x2meal, per chart review. Pt states following a low-Na diet at home, and has no issues with chewing/swallowing food, despite having poor dentition. Pt states some recent issues with nausea. Pt states no recent issues with vomiting, constipation, or diarrhea and that his last BM was 05/08. Note pt currently on bowel regimen of senna BID; and miralax BID, per chart review. Pt states recent 20# wt loss x3mon. Note unable to determine recent wt hx, per chart review. ABNORMAL NUTRITION-RELATED LAB VALUES LOW: HIGH: BUN 20; glu 120 Est. kcal needs: 2000 kcal | 20 kcal/kg Est. Pro needs: 80 g Pro | 0.8 g Pro/kg PES STATEMENT: Inadequate oral intake (NI-2.1) related to loss of appetite | nausea as evidenced by pt interview | avg PO intake <25% x2meal INTERVENTION: Continue with current diet order of Regular diet. Add Ensure Enlive (vary) to meals TID, for increased kcal intake. Provides 350 kcal and 20 g Pro per serving. Encouraged pt to eat when able. Will continue to follow and reassess as pt needs, intake, and status change. Christina Baker, MS RD LD
--- NOTE | 2020-05-09 15:09 | NUR ---
CM/SS ADMISSION Patient was admitted to ARU from [facility] 05/08/20. He had a right hip replacement by Dr. Power 04/17 for osteoarthritis. Per his son, he was doing well and was discharged home with his . Patient apparently decreased his fluid intake to avoid bathroom trips because he was having difficulty ambulating, he became dehydrated and experienced multiple falls. He was then admitted to [facility] for rehydration prior to admission to ARU. Other diagnoses are, in part, cognition deficits, HTN, anemia, and son indicates history of DC with cardiac surgery. Architectural Job Captain spoke with patient but more with his son, Shreyas Wright, to obtain psychosocial history. Patient resides with his Ary in a [place] [address] in [place]. The children moved them from a 3 bedroom home to a residential living facility in [place] about 3-4 years ago. Without consulting the children, patient/spouse purchased their current trailer and moved. Shreyas describes that both his parents have memory impairment, patient's SLUMS is here. His apparently fell and broke her neck 6-7 years ago with residual L hand paralyzation. Shreyas reports she has continued to function at her own pace and does suffer from obvious short term memory impairment. PCP: None at present because patient's Dr. Larose retired; Shreyas states he should be referred to the same office with Dr Pepe. PH: [phone] PHARMACY: [facility] INSURANCE: Medicare only, betito Pritchett confirms no supplement. DME: Has FWW, shower chair, grab bars. BARRIERS TO DISCHARGE: Patient's memory impairment is currently interfering with him remembering precautions for hip and safety. Patient gets easily distracted and jumps topics. He was home with spouse who has her own limits and impairments. Son Shreyas describes them both as headstrong regarding sense and sensibility; however, Shreyas indicates the 3 boys agree to come together regarding next steps if need be. Returning home is a concern unless patient can manage self and safety. Betito Pritchett stated that he has to be able to toilet and shower with standby assist only in order to return home. Otherwise, this may be a SNF placement or a move needs made for him into assisted living. CONTACTS: Primary~ Betito Su[employer] (makes [employer]) [address] [place] [address] [place] [address] Betito Ortega [place], [place] Son Shreyas understands the process and purpose of the weekly team meeting and that patient's first review will be Wednesday, May 15, 2020.
--- NOTE | 2020-05-09 15:26 | NUR ---
Pt has no mandaeism preference but is his own version of Bible believing Mu-Ism. He spoke openly of his views on life and his coping with pain. we ended with prayer including his .
[2020-05-09 16:02] VITALS: BP 143/64
[2020-05-10 05:04] VITALS: BP 156/74
[2020-05-10 07:05] LABS: INR 3.4 (0.8-1.4); PROTHROMBIN TIME PATIENT 34.9 SEC (12.2-14.7)
[2020-05-10] MEDS: ENOXAPARIN 40 MG/0.4 ML (LOVENOX) SYR SC SCH (09:23)
[2020-05-10] MEDS: ISOSORBIDE MONONITRATE 30 MG (IMDUR) TAB PO SCH (09:23)
[2020-05-10] MEDS: CARVEDILOL 12.5 MG (COREG) TABLET PO SCH ×2 (09:23→21:28)
[2020-05-10] MEDS: SENNA W/DOCUSATE (SENOKOT S) TABLET PO SCH ×2 (09:23→21:28)
[2020-05-10] MEDS: LOSARTAN 50 MG (COZAAR) TAB PO SCH (09:23)
[2020-05-10] MEDS: polyethylene glycoL POWDER 17 GM (MIRALAX) PACK PO SCH ×2 (09:30→21:30)
--- NOTE | 2020-05-10 09:37 | Occupational Ther Daily Note ---
OT Current Status-Daily Note Subjective Pt seated in recliner, agreeable to OT tx. Pt does not report any pain in sitting, able to recall 1/3 hip precautions, stating he needs to keep his feet forward. ADL-Treatment Therapy Code Descriptions/Definitions Functional [place] Measure: 0=Not Assessed/NA 4=Minimal Assistance 1=Total Assistance 5=Supervision or Setup 2=Maximal Assistance 6=Modified [place] 3=Moderate Assistance 7=Complete IndependenceSCALE: Activities may be completed with or without assistive devices. 8-Mtsjabxxqj-yumzulw completes the activity by him/herself with no assistance from a helper. 5-Set-up or Clean-up Assistance-helper sets up or cleans up; patient completes activity. [place] assists only prior to or following the activity. 4-Supervision or Touching Assistance-helper provides verbal cues and/or touching/steadying and/or contact guard assistance as patient completes activity. Assistance may be provided throughout the activity or intermittently. 3-Partial/Moderate Assistance-helper does LESS THAN HALF the effort. [place] lifts, holds or supports trunk or limbs, but provides less than half the effort. 2-Substantial/Maximal Assistance-helper does MORE THAN HALF the effort. [place] lifts or holds trunk or limbs and provides more than half the effort. 2-Iaqjxzkzs-oahmkx does ALL the effort. Patient does none of the effort to complete the activity. Or, the assistance of 2 or more helpers is required for the patient to complete the activity. If activity was not attempted, code reason: 7-Patient Refused. 9-Not Applicable-not attempted and the patient did not perform the activity b efore the current illness, exacerbation or injury. 10-Not Attempted due to Environmental Limitations-(lack of equipment, weather restraints, etc.). 88-Not Attempted due to Medical Conditions or Safety Concerns. Upper Body Dressing (QC): 5 (set up assist) Lower Body Dressing (QC): 3 (Mod A. Pt educated on AE, required max verbal cues with task) On/Off Footwear: 3 (OT educated pt on AE, pt required mod A and max verbal cues for task) Toileting Hygiene (QC): 3 (Mod A with clothing management, Pt completed toileting seated on [facility] [place] toilet) Toilet Transfer (QC): 3 (Mod A toilet transfer, Pt transferred from w/c to/from [facility] [place] Pt required increased time with all ADLS and max verbal cues for sequencing and to maintain hip precautions. Other Treatment Pt seated in recliner, agreeable to OT Tx with focus on dressing. OT educated pt on AE for lower body dressing and footwear. Pt required max verbal cues to use AE and to maintain hip precautions through task. Pt then completed lower body dressing, standing at FWW for clothing management, min-mod A standing balance and skilled cues for sequencing and safety. Pt then completed upper body dressing and footwear seated. Pt requests to use bathroom, OT placed BSC over toilet, Pt transferred from recliner to / using FWW, then taken into the bathroom to transfer onto BSC. Pt completed toileting, stating he is unable to use BSC over the toilet due to urinating onto the floor between commode and toilet. OT educated pt on positioning himself on BSC, pt able to urinate into the toilet without urinating onto floor. Pt transferred back to [facility], then transferred w/c to [facility]. Post OT tx, pt seated in recliner, call light in reach and all needs met. Education OT Patient Education: Correct positioning, Energy conservation, Modified ADL techniques, Progress toward Goal/Update tx plan, Purpose of tx/functional ac tivities, Reviewed precautions, Rehab process, Safety issues, Transfer techniques, Use of adapted equipment Teaching Recipient: Patient Teaching Methods: Demonstration, Discussion Response to Teaching: Verbalize Understanding, Return Demonstration, Reinforcement Needed OT Spikemaking Supervisor Goals Senior Living Goals Time Frame: May 31, 2020 Eating (QC): 6 Oral Hygiene (QC): 6 Toileting Hygiene (QC): 6 Shower/Bathe Self (QC): 6 Upper Body Dressing (QC): 6 Lower Body Dressing (QC): 6 On/Off Footwear (QC): 6 Additional Goals: 1-Demonstrate ADL Tasks, 2-Verbalize Understanding, 3- ImproveStrength/[place] 1=Demonstrate adherence to instructed precautions during ADL tasks. 2=Patient will verbalize/demonstrate understanding of assistive devices/modif ications for ADL. 3=Patient will improve strength/tolerance for activity to enable patient to perform ADL's. OT Education/Plan Problem List/Assessment Assessment: Decreased Activ Tolerance, Decreased Safety Aware, Decreased UE Strength, Impaired Bed Mobility, Impaired Funct Balance, Impaired I ADL's, Impaired Self-Care Skills Discharge Recommendations Plan/Recommendations: Continue POC Treatment Plan/Plan of Care Patient would benefit from OT for education, treatment and training to promote independence in ADL's, mobility, safety and/or upper extremity function for ADL's. Plan of Care: ADL Retraining, Functional Mobility, Group Exercise/Act as Ind, UE Funct Exercise/Act Treatment Duration: May 31, 2020 Frequency: At least 5 of 7 days/Wk (IRF) Estimated Hrs Per Day: 1.5 hours per day Agreement: Yes Rehab Potential: Fair Time/GCodes Start Time: 08:00 Stop Time: 09:15 Total Time Billed (hr/min): 75 Billed Treatment Time 1, ADL 5 LEILANI CARSON OT May 10, 2020 09:36
--- NOTE | 2020-05-10 10:40 | PM&R Progress Note ---
Subjective HPI/CC On Admission Date Seen by Provider: May 10, 2020 Time Seen by Provider: 10:45 Subjective/Events-last exam 05/10/20: IV iron infusion tolerated and updated him on that status BM yesterday Needs 24/7 care so will need to talk to family about disposition Pain with PT right hip replacement Patient settling in well Dementia noted and SLUMS was [address] testing increased from 9 when it was done at [facility] Delirium likely a component but baseline dementia is confirmed Impulsive and tried to get OOB last night Bed alarm in place INR 3.4 so holding Coumadin again tonight Iron level noted so will start Venofer due to severe anemia Checking TSH and B12 also Conferred with RN Reviewed therapy notes Checked meds and labs Review of Systems Musculoskeletal: leg pain Objective Exam Vital Signs Vital Signs Date Time Temp Pulse Resp B/P (MAP) Pulse Ox O2 Delivery O2 Flow Rate FiO2 05/10/20 20:30 Room Air 05/10/20 16:13 36.8 52 16 111/54 (73) 95 Capillary Refill : Less Than 3 SecondsLess Than 3 Seconds General Appearance: No Apparent Distress, WD/WN, Chronically ill HEENT: PERRL/EOMI, Normal ENT Inspection, Pharynx Normal Neck: Full Range of Motion, Normal Inspection, Non Tender, Supple, Carotid Bruit Respiratory: Chest Non Tender, Lungs Clear, Normal Breath Sounds, No Accessory Muscle Use, No Respiratory Distress Cardiovascular: Regular Rate, Rhythm, No Edema, No Gallop, No JVD, No Murmur, Normal Peripheral Pulses Gastrointestinal: Normal Bowel Sounds, No Organomegaly, No Pulsatile Mass, Non Tender, Soft Back: Normal Inspection, No CVA Tenderness, No Vertebral Tenderness Extremity: Normal Capillary Refill, Normal Inspection, Normal Range of Motion, Non Tender, No Calf Tenderness, No Pedal Edema Neurologic/Psychiatric: Alert, Oriented x3, No Motor/Sensory Deficits, Normal 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 FIM Transfers Therapy Code Descriptions/Definitions Functional [place] Measure: 0=Not Assessed/NA 4=Minimal Assistance 1=Total Assistance 5=Supervision or Setup 2=Maximal Assistance 6=Modified [place] 3=Moderate Assistance 7=Complete IndependenceSCALE: Activities may be completed with or without assistive devices. 4-Nypkxpbfuc-dlbmmdt completes the activity by him/herself with no assistance from a helper. 5-Set-up or Clean-up Assistance-helper sets up or cleans up; patient completes activity. [place] assists only prior to or following the activity. 4-Supervision or Touching Assistance-helper provides verbal cues and/or touching/steadying and/or contact guard assistance as patient completes activity. Assistance may be provided throughout the activity or intermittently. 3-Partial/Moderate Assistance-helper does LESS THAN HALF the effort. [place] lifts, holds or supports trunk or limbs, but provides less than half the effort. 2-Substantial/Maximal Assistance-helper does MORE THAN HALF the effort. [place] lifts or holds trunk or limbs and provides more than half the effort. 9-Dvkcpdajg-zjixzc does ALL the effort. Patient does none of the effort to complete the activity. Or, the assistance of 2 or more helpers is required for the patient to complete the activity. If activity was not attempted, code reason: 7-Patient Refused. 9-Not Applicable-not attempted and the patient did not perform the activity before the current illness, exacerbation or injury. 10-Not Attempted due to Environmental Limitations-(lack of equipment, weather restraints, etc.). 88-Not Attempted due to Medical Conditions or Safety Concerns. Roll Left to Right (QC): 6 Sit to Lying (QC): 3 Sit to Stand (QC): 3 Chair/Afs-je-Hrazi Xfer(QC): 4 Car Transfer (QC): 3 Gait Training Does the Patient Walk?: Yes Distance: 35'x2 Walk 10 feet (QC): 4 Walk 50 ft with 2 Turns(QC): 88 Walk 150 ft (QC): 88 Walking 10ft/uneven surface-QC: 3 Gait Assistive Device: FWW Wheelchair Training Does the Pt Use a Wheelchair?: Yes Distance: 150'x4 Wheel 50 ft with 2 turns (QC): 4 Wheel 150 ft (QC): 4 Type of Wheelchair: Manual Stair Training 1 Step (curb) (QC): 88 4 Steps (QC): 88 12 Steps (QC): 88 Balance Picking up an Object (QC): 88 ADL-Treatment Eating (QC): 6 (Pt indicates he had no difficulty with eating breakfast.) Oral Hygiene (QC): 4 (Pt required verbal cues to maintain hip precautions during task, pt completed seated at sink) Shower/Bathe Self (QC): 3 (Pt required assistance with washing BLE lower legs and feet, as well as min A for balance in stand at GBs. Pt able to wash upper body, periarea, and buttocks in sitting.) Upper Body Dressing (QC): 5 (set up assist) Lower Body Dressing (QC): 3 (Mod A. Pt educated on AE, required max verbal cues with task) On/Off Footwear (QC): 3 (OT educated pt on AE, pt required mod A and max verbal cues for task) Toileting Hygiene (QC): 3 (Mod A with clothing management, Pt completed toileting seated on [facility] over toilet) Toilet Transfer (QC): 3 (Mod A toilet transfer, Pt transferred from w/c to/from [facility] over toilet) Assessment/Plan Assessment and Plan Assess & Plan/Chief Complaint Assessment: Debility Falls Right total hip replacement 04/17/20 AF Coumadin treatment SLUMS 9 HTN Anemia Plan: Monitor BP Monitor INR IRF protocol 05/09/20: Venofer for low iron and anemia Check B12 and TSH due to dementia Supportive care BM regimen 05/10/20: IV iron infusion Monitor for falls and impulsiveness (1) Status post right hip replacement (2) Atrial fibrillation (3) On warfarin therapy (4) Falls frequently (5) Cognitive deficits (6) Hypertension (7) Anemia (8) Dehydration ELAINE CASTRO DO May 10, 2020 10:40
[2020-05-10] MEDS: IRON SUCROSE 200 MG/10 ML (VENOFER) VIAL IV SCH (10:56)
--- NOTE | 2020-05-10 11:16 | Speech Therapy Daily Note ---
Speech Daily Progress Note Subjective Date Seen by Provider: May 10, 2020 Time Seen by Provider: 00:30 Patient was resting in his chair while nursing was trying to get an IV started. Objective Patient completed a series of memory tasks related to his daily routine with 75% requiring moderate cues and redirection to task. Assessment Assessment Current Status: Fair Progress Treatment Plan Continue Plan of Care Speech Short Term Goals Short Term Goals Short Term Goals 1) Patient will complete memory tasks related to his daily needs at 80% or greater with minimal cues. 2) Patient will complete safety awareness tasks related to his daily needs at 80% or greater with minimal cues. 3) Patient will complete problem solving tasks related to his daily needs at 80% or greater with minimal cues. 4) Patient will attend to task at 80% or greater for improving level of function. Speech Residential Goals Construction Administrative Assistant Goals Patient will improve cognitive-communication abilities in order to complete daily tasks with minimal assist. Speech-Plan Patient/Family Goals Patient/Family Goals: Patient plans on returning to his home where he lives with his . Treatment Plan Speech Therapy Treatment Plan: Continue Plan of Care Treatment Duration: May 17, 2020 Frequency: 4 times per week (Patient will receive skilled ST 4-5x per week) Estimated Hrs Per Day: Other Rehab Potential: Fair Barriers to Learning: Patient's medical status, age, cognitive deficits Pt/Family Agrees to Plan: Yes Safety Risks/Education Teaching Recipient: Patient Teaching Methods: Demonstration, Discussion Response to Teaching: Verbalize Understanding, Return Demonstration Education Topics Provided: Safety within his room and communication of his wants/needs Time Speech Therapy Time In: 10:00 Speech Therapy Time Out: 10:30 Total Billed Time: 30 Billed Treatment Time 1MILO [address] ST May 10, 2020 11:16
[2020-05-10] MEDS: HYDROcodone/APAP 5 MG/325 MG (LORTAB) TAB PO PRN (11:21)
--- NOTE | 2020-05-10 12:08 | Physical Therapy Daily Note ---
PT Daily Note-Current Subjective Pt. agrees to Rx reluctantly stating he would rather than be in 10/10 pain again. Pt. denies pain at this time but feels sure he will be in 10/10 pain with exercise and gait. Pts nurse was contacted and she brought pain meds prophylactically and pt stated after Rx that his pain was never over 3/10 and only briefly. 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 Pain Location: Right Location Body Site: Hip Pain Description: Ache Mental Status Patient Orientation: Normal For Age Attachments: Other-See Comments (iron infusion ) Transfers SCALE: Activities may be completed with or without assistive devices. 8-Ouyvrrwore-jvkrzgz completes the activity by him/herself with no assistance from a helper. 5-Set-up or Clean-up Assistance-helper sets up or cleans up; patient completes activity. [place] assists only prior to or following the activity. 4-Supervision or Touching Assistance-helper provides verbal cues and/or touching/steadying and/or contact guard assistance as patient completes activity. Assistance may be provided throughout the activity or intermittently. 3-Partial/Moderate Assistance-helper does LESS THAN HALF the effort. [place] lifts, holds or supports trunk or limbs, but provides less than half the effort. 2-Substantial/Maximal Assistance-helper does MORE THAN HALF the effort. [place] lifts or holds trunk or limbs and provides more than half the effort. 4-Prfirspkg-fngvpm does ALL the effort. Patient does none of the effort to complete the activity. Or, the assistance of 2 or more helpers is required for the patient to complete the activity. If activity was not attempted, code reason: 7-Patient Refused. 9-Not Applicable-not attempted and the patient did not perform the activity before the current illness, exacerbation or injury. 10-Not Attempted due to Environmental Limitations-(lack of equipment, weather restraints, etc.). 88-Not Attempted due to Medical Conditions or Safety Concerns. Sit to Stand (QC): 5 Chair/Lzc-ht-Pmend Xfer(QC): 4 Weight Bearing Weight Bearing/Tolerated Full Weight Bearing Gait Training Does the Patient Walk?: Yes Walk 10 feet (QC): 4 Walk 50 ft with 2 Turns(QC): 4 Gait Persons Needed: 1 Gait Assistive Device: FWW pt. instructed in using UEs for heavy wt bearing on FWW to alleviate pain upon wt bearing on R hip. This seemed to help. Gait, with head down, slow, needs instruction for turns and for position in FWW and how far to advance FWW Exercises Supine Ex: Ankle pumps, Quad Set, Glut sets, Heel Slides, Short Arc Quads, Scooting (up in bed), Straight leg raise (assisted right), Hip abd/add (asssited right) Supine Reps: 20 Seated Therapy Exercises: Ankle pumps, Sit to stand, Long arc quads, Hip abd/add Seated Reps: 20 Assessment Current Status: Good Progress pain meds before Rx seemed to help, slow Rx with explanation of all exercises etc was helpful. PT Short Term Goals Short Term Goals Time Frame: May 15, 2020 Roll Left & Right: 6 Sit to lyin Lying to sitting on side of be: 4 Sit to stand: 4 Chair/xfq-kd-bzydd transfer: 4 Walk 10 feet: 4 Walk 50 feet with two turns: 4 1 step (curb): 3 PT Wooden Furniture Polisher Goals Nursing Home Goals PT Wooden Furniture Polisher Goals Time Frame: May 29, 2020 Roll Left & Right (QC): 6 Sit to Lying (QC): 6 Lying-Sitting on Side/Bed(QC): 6 Sit to Stand (QC): 6 Chair/Mwh-zj-Fzaaw Xfer(QC): 6 Toilet Transfer (QC): 6 Car Transfer (QC): 6 Does the Patient Walk: Yes Walk 10 feet (QC): 4 Walk 50ft with 2 Turns (QC): 4 Walk 150 ft (QC): 4 Walking 10ft on Uneven Surface: 4 1 Step (curb) (QC): 4 4 Steps (QC): 4 12 Steps (QC): 88 Picking up an Object (QC): 4 Wheel 50 feet with 2 turns (QC: 6 Type: Manual Wheel 150 feet: 6 Type: Manual PT Plan Treatment/Plan Treatment Plan: Continue Plan of Care Treatment Plan: Bed Mobility, Education, Functional Activity Manuela, Functional Strength, Group Therapy, Gait, Safety, Therapeutic Exercise, Transfers Treatment Duration: May 22, 2020 Frequency: At least 5 of 7 days/Wk (IRF) Estimated Hrs Per Day: 1.5 hours per day Patient and/or Family Agrees t: Yes Safety Risks/Education Patient Education: Gait Training, Transfer Techniques, Correct Positioning, Disease Process, Safety Issues Teaching Recipient: Patient Teaching Methods: Demonstration, Discussion Response to Teaching: Verbalize Understanding, Return Demonstration, Reinforcement Needed Time/GCodes Time In: 1100 Time Out: 1215 Total Billed Treatment Time: 75 Total Billed Treatment 1,GT20m,FA30m,EX25m LONNY OCONNELL PTA May 10, 2020 12:08
[2020-05-10 16:13] VITALS: BP 111/54
[2020-05-11 06:30] VITALS: BP 136/61
[2020-05-11] MEDS: HYDROcodone/APAP 5 MG/325 MG (LORTAB) TAB PO PRN ×2 (07:01→20:56)
--- NOTE | 2020-05-11 07:04 | PM&R Progress Note ---
Subjective HPI/CC On Admission Date Seen by Provider: May 11, 2020 Time Seen by Provider: 12:00 Subjective/Events-last exam 05/11/20: More lucid today Much improved since admit In good spirits today BM+ 05/10/20: IV iron infusion tolerated and updated him on that status BM yesterday Needs 24/7 care so will need to talk to family about disposition Pain with PT right hip replacement Patient settling in well Dementia noted and SLUMS was [address] testing increased from 9 when it was done at [facility] Delirium likely a component but baseline dementia is confirmed Impulsive and tried to get OOB last night Bed alarm in place INR 3.4 so holding Coumadin again tonight Iron level noted so will start Venofer due to severe anemia Checking TSH and B12 also Conferred with RN Reviewed therapy notes Checked meds and labs Review of Systems Musculoskeletal: leg pain Neurological: Confusion Objective Exam Vital Signs Vital Signs Date Time Temp Pulse Resp B/P (MAP) Pulse Ox O2 Delivery O2 Flow Rate FiO2 05/12/20 05:12 36.0 68 20 117/57 (77) 95 Room Air Capillary Refill : Less Than 3 SecondsLess Than 3 Seconds General Appearance: No Apparent Distress, WD/WN, Chronically ill HEENT: PERRL/EOMI, Normal ENT Inspection, Pharynx Normal Neck: Full Range of Motion, Normal Inspection, Non Tender, Supple, Carotid Bruit Respiratory: Chest Non Tender, Lungs Clear, Normal Breath Sounds, No Accessory Muscle Use, No Respiratory Distress Cardiovascular: Regular Rate, Rhythm, No Edema, No Gallop, No JVD, No Murmur, Normal Peripheral Pulses Gastrointestinal: Normal Bowel Sounds, No Organomegaly, No Pulsatile Mass, Non Tender, Soft Back: Normal Inspection, No CVA Tenderness, No Vertebral Tenderness Extremity: Normal Capillary Refill, Normal Inspection, Normal Range of Motion, Non Tender, No Calf Tenderness, No Pedal Edema Neurologic/Psychiatric: Alert, Oriented x3, No Motor/Sensory Deficits, Normal 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 FIM Transfers Therapy Code Descriptions/Definitions Functional [place] Measure: 0=Not Assessed/NA 4=Minimal Assistance 1=Total Assistance 5=Supervision or Setup 2=Maximal Assistance 6=Modified [place] 3=Moderate Assistance 7=Complete IndependenceSCALE: Activities may be completed with or without assistive devices. 9-Wufbipswvx-dhitgyq completes the activity by him/herself with no assistance from a helper. 5-Set-up or Clean-up Assistance-helper sets up or cleans up; patient completes activity. [place] assists only prior to or following the activity. 4-Supervision or Touching Assistance-helper provides verbal cues and/or touching/steadying and/or contact guard assistance as patient completes activity. Assistance may be provided throughout the activity or intermittently. 3-Partial/Moderate Assistance-helper does LESS THAN HALF the effort. [place] lifts, holds or supports trunk or limbs, but provides less than half the effort. 2-Substantial/Maximal Assistance-helper does MORE THAN HALF the effort. [place] lifts or holds trunk or limbs and provides more than half the effort. 9-Aldfletec-ealkup does ALL the effort. Patient does none of the effort to complete the activity. Or, the assistance of 2 or more helpers is required for the patient to complete the activity. If activity was not attempted, code reason: 7-Patient Refused. 9-Not Applicable-not attempted and the patient did not perform the activity before the current illness, exacerbation or injury. 10-Not Attempted due to Environmental Limitations-(lack of equipment, weather restraints, etc.). 88-Not Attempted due to Medical Conditions or Safety Concerns. Roll Left to Right (QC): 6 Sit to Lying (QC): 3 Sit to Stand (QC): 5 Chair/Kmd-ld-Wbtvm Xfer(QC): 4 Car Transfer (QC): 3 Gait Training Does the Patient Walk?: Yes Distance: 35'x2 Walk 10 feet (QC): 4 Walk 50 ft with 2 Turns(QC): 4 Walk 150 ft (QC): 88 Walking 10ft/uneven surface-QC: 3 Gait Persons Needed: 1 Gait Assistive Device: FWW Wheelchair Training Does the Pt Use a Wheelchair?: Yes Distance: 150'x4 Wheel 50 ft with 2 turns (QC): 4 Wheel 150 ft (QC): 4 Type of Wheelchair: Manual Stair Training 1 Step (curb) (QC): 88 4 Steps (QC): 88 12 Steps (QC): 88 Balance Picking up an Object (QC): 88 ADL-Treatment Eating (QC): 6 (Pt indicates he had no difficulty with eating breakfast.) Oral Hygiene (QC): 4 (Pt required verbal cues to maintain hip precautions during task, pt completed seated at sink) Shower/Bathe Self (QC): 3 (Pt required assistance with washing BLE lower legs and feet, as well as min A for balance in stand at GBs. Pt able to wash upper body, periarea, and buttocks in sitting.) Upper Body Dressing (QC): 5 (set up assist) Lower Body Dressing (QC): 3 (Mod A. Pt educated on AE, required max verbal cues with task) On/Off Footwear (QC): 3 (OT educated pt on AE, pt required mod A and max verbal cues for task) Toileting Hygiene (QC): 3 (Mod A with clothing management, Pt completed toileting seated on [facility] over toilet) Toilet Transfer (QC): 3 (Mod A toilet transfer, Pt transferred from w/c to/from [facility] over toilet) Assessment/Plan Assessment and Plan Assess & Plan/Chief Complaint Assessment: Debility Falls Right total hip replacement 04/17/20 AF Coumadin treatment SLUMS 9 HTN Anemia Plan: Monitor BP Monitor INR IRF protocol 05/09/20: Venofer for low iron and anemia Check B12 and TSH due to dementia Supportive care BM regimen 05/10/20: IV iron infusion Monitor for falls and impulsiveness 05/11/20: Improved status More lucid IV iron infusions (1) Status post right hip replacement (2) Atrial fibrillation (3) On warfarin therapy (4) Falls frequently (5) Cognitive deficits (6) Hypertension (7) Anemia (8) Dehydration ELAINE CASTRO DO May 11, 2020 07:04
[2020-05-11 07:37] LABS: INR 2.4 (0.8-1.4); PROTHROMBIN TIME PATIENT 26.6 SEC (12.2-14.7)
--- NOTE | 2020-05-11 08:01 | Physical Therapy Daily Note ---
PT Daily Note-Current Subjective Agreeable to PT Anxious to get home. Transfers SCALE: Activities may be completed with or without assistive devices. 6-Eyhyyargjm-dpbnwvr completes the activity by him/herself with no assistance from a helper. 5-Set-up or Clean-up Assistance-helper sets up or cleans up; patient completes activity. [place] assists only prior to or following the activity. 4-Supervision or Touching Assistance-helper provides verbal cues and/or touching/steadying and/or contact guard assistance as patient completes activity. Assistance may be provided throughout the activity or intermittently. 3-Partial/Moderate Assistance-helper does LESS THAN HALF the effort. [place] lifts, holds or supports trunk or limbs, but provides less than half the effort. 2-Substantial/Maximal Assistance-helper does MORE THAN HALF the effort. [place] lifts or holds trunk or limbs and provides more than half the effort. 7-Pyqdpbdgq-gjspuz does ALL the effort. Patient does none of the effort to complete the activity. Or, the assistance of 2 or more helpers is required for the patient to complete the activity. If activity was not attempted, code reason: 7-Patient Refused. 9-Not Applicable-not attempted and the patient did not perform the activity before the current illness, exacerbation or injury. 10-Not Attempted due to Environmental Limitations-(lack of equipment, weather restraints, etc.). 88-Not Attempted due to Medical Conditions or Safety Concerns. Weight Bearing Weight Bearing/Tolerated Full Weight Bearing Treatments Sit to stand x all attempts with CGA and skilled cues for sequencing. Gait x 50 ft x 4 reps with FWW. Slow gait, decreased step length and forward flexed at hips. CGA with gait for safety. Pt up in chair post treatment with legs elevated and chair alarm activated. Assessment Current Status: Good Progress Progressing. Gait is antalgic at times. Slow gait but safe this date. PT Short Term Goals Short Term Goals Time Frame: May 15, 2020 Roll Left & Right: 6 Sit to lyin Lying to sitting on side of be: 4 Sit to stand: 4 Chair/slh-ay-quajx transfer: 4 Walk 10 feet: 4 Walk 50 feet with two turns: 4 1 step (curb): 3 PT Usp Goals Usp Goals PT Usp Goals Time Frame: May 29, 2020 Roll Left & Right (QC): 6 Sit to Lying (QC): 6 Lying-Sitting on Side/Bed(QC): 6 Sit to Stand (QC): 6 Chair/Hif-ce-Uabvu Xfer(QC): 6 Toilet Transfer (QC): 6 Car Transfer (QC): 6 Does the Patient Walk: Yes Walk 10 feet (QC): 4 Walk 50ft with 2 Turns (QC): 4 Walk 150 ft (QC): 4 Walking 10ft on Uneven Surface: 4 1 Step (curb) (QC): 4 4 Steps (QC): 4 12 Steps (QC): 88 Picking up an Object (QC): 4 Wheel 50 feet with 2 turns (QC: 6 Type: Manual Wheel 150 feet: 6 Type: Manual PT Plan Problem List Problem List: Activity Tolerance, Functional Strength, Safety, Balance, Gait, Transfer Treatment/Plan Treatment Plan: Continue Plan of Care Treatment Plan: Bed Mobility, Education, Functional Activity Manuela, Functional Strength, Group Therapy, Gait, Safety, Therapeutic Exercise, Transfers Treatment Duration: May 22, 2020 Frequency: At least 5 of 7 days/Wk (IRF) Estimated Hrs Per Day: 1.5 hours per day Patient and/or Family Agrees t: Yes Safety Risks/Education Patient Education: Transfer Techniques, Safety Issues Teaching Recipient: Patient Teaching Methods: Discussion Response to Teaching: Reinforcement Needed Discharge Recommendations Therapy Discharge Recommendati: Post Acute PT Time/GCodes Time In: 715 Time Out: 740 Total Billed Treatment Time: 25 Total Billed Treatment visit GT 25 BRENDA SANDERSON PT May 11, 2020 08:01
[2020-05-11 09:00] VITALS: BP 140/54
[2020-05-11] MEDS: CARVEDILOL 12.5 MG (COREG) TABLET PO SCH ×2 (10:09→20:56)
[2020-05-11] MEDS: LOSARTAN 50 MG (COZAAR) TAB PO SCH (10:09)
[2020-05-11] MEDS: ENOXAPARIN 40 MG/0.4 ML (LOVENOX) SYR SC SCH (10:09)
[2020-05-11] MEDS: SENNA W/DOCUSATE (SENOKOT S) TABLET PO SCH ×2 (10:09→20:57)
[2020-05-11] MEDS: ISOSORBIDE MONONITRATE 30 MG (IMDUR) TAB PO SCH (10:09)
[2020-05-11] MEDS: polyethylene glycoL POWDER 17 GM (MIRALAX) PACK PO SCH ×2 (10:10→20:57)
[2020-05-11 17:37] VITALS: BP 131/63
--- NOTE | 2020-05-11 19:11 | NUR ---
Bedside report received from LUCERO GUTIERREZ, assume care of pt
[2020-05-11 20:50] VITALS: BP 142/66
--- NOTE | 2020-05-11 20:56 | NUR ---
pt refused Senokot & miralax, c/o rt hip pain, level 4/10 on numeric scale, Lortab 5 1 tab given
--- NOTE | 2020-05-11 21:42 | NUR ---
resting quietly in bed, 0/10 on CNPI SCALE
[2020-05-12 05:12] VITALS: BP 117/57
--- NOTE | 2020-05-12 08:52 | PM&R Progress Note ---
Subjective HPI/CC On Admission Date Seen by Provider: May 12, 2020 Time Seen by Provider: 12:15 Subjective/Events-last exam 05/09/20: BM yesterday Doing well Labs due tomorrow IV Venofer tolerated 05/11/20: More lucid today Much improved since admit In good spirits today BM+ 05/10/20: IV iron infusion tolerated and updated him on that status BM yesterday Needs 24/7 care so will need to talk to family about disposition Pain with PT right hip replacement Patient settling in well Dementia noted and SLUMS was [address] testing increased from 9 when it was done at [facility] Delirium likely a component but baseline dementia is confirmed Impulsive and tried to get OOB last night Bed alarm in place INR 3.4 so holding Coumadin again tonight Iron level noted so will start Venofer due to severe anemia Checking TSH and B12 also Conferred with RN Reviewed therapy notes Checked meds and labs Review of Systems General: Fatigue Musculoskeletal: leg pain Neurological: Confusion Objective Exam Vital Signs Vital Signs Date Time Temp Pulse Resp B/P (MAP) Pulse Ox O2 Delivery O2 Flow Rate FiO2 05/12/20 09:00 Room Air 05/12/20 05:12 36.0 68 20 117/57 (77) 95 Capillary Refill : Less Than 3 SecondsLess Than 3 Seconds General Appearance: No Apparent Distress, WD/WN, Chronically ill HEENT: PERRL/EOMI, Normal ENT Inspection, Pharynx Normal Neck: Full Range of Motion, Normal Inspection, Non Tender, Supple, Carotid Bruit Respiratory: Chest Non Tender, Lungs Clear, Normal Breath Sounds, No Accessory Muscle Use, No Respiratory Distress Cardiovascular: Regular Rate, Rhythm, No Edema, No Gallop, No JVD, No Murmur, Normal Peripheral Pulses Gastrointestinal: Normal Bowel Sounds, No Organomegaly, No Pulsatile Mass, Non Tender, Soft Back: Normal Inspection, No CVA Tenderness, No Vertebral Tenderness Extremity: Normal Capillary Refill, Normal Inspection, Normal Range of Motion, Non Tender, No Calf Tenderness, No Pedal Edema Neurologic/Psychiatric: Alert, Oriented x3, No Motor/Sensory Deficits, Normal 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 FIM Transfers Therapy Code Descriptions/Definitions Functional [place] Measure: 0=Not Assessed/NA 4=Minimal Assistance 1=Total Assistance 5=Supervision or Setup 2=Maximal Assistance 6=Modified [place] 3=Moderate Assistance 7=Complete IndependenceSCALE: Activities may be completed with or without assistive devices. 7-Wauuqknneb-eyurgmi completes the activity by him/herself with no assistance from a helper. 5-Set-up or Clean-up Assistance-helper sets up or cleans up; patient completes activity. [place] assists only prior to or following the activity. 4-Supervision or Touching Assistance-helper provides verbal cues and/or touching/steadying and/or contact guard assistance as patient completes act ivity. Assistance may be provided throughout the activity or intermittently. 3-Partial/Moderate Assistance-helper does LESS THAN HALF the effort. [place] lifts, holds or supports trunk or limbs, but provides less than half the effort. 2-Substantial/Maximal Assistance-helper does MORE THAN HALF the effort. [place] lifts or holds trunk or limbs and provides more than half the effort. 5-Vpdthmqln-wlllmx does ALL the effort. Patient does none of the effort to complete the activity. Or, the assistance of 2 or more helpers is required for the patient to complete the activity. If activity was not attempted, code reason: 7-Patient Refused. 9-Not Applicable-not attempted and the patient did not perform the activity before the current illness, exacerbation or injury. 10-Not Attempted due to Environmental Limitations-(lack of equipment, weather restraints, etc.). 88-Not Attempted due to Medical Conditions or Safety Concerns. Roll Left to Right (QC): 6 Sit to Lying (QC): 3 Sit to Stand (QC): 5 Chair/Rmv-kn-Zbsiu Xfer(QC): 4 Car Transfer (QC): 3 Gait Training Does the Patient Walk?: Yes Distance: 35'x2 Walk 10 feet (QC): 4 Walk 50 ft with 2 Turns(QC): 4 Walk 150 ft (QC): 88 Walking 10ft/uneven surface-QC: 3 Gait Persons Needed: 1 Gait Assistive Device: FWW Wheelchair Training Does the Pt Use a Wheelchair?: Yes Distance: 150'x4 Wheel 50 ft with 2 turns (QC): 4 Wheel 150 ft (QC): 4 Type of Wheelchair: Manual Stair Training 1 Step (curb) (QC): 88 4 Steps (QC): 88 12 Steps (QC): 88 Balance Picking up an Object (QC): 88 ADL-Treatment Eating (QC): 6 (Pt indicates he had no difficulty with eating breakfast.) Oral Hygiene (QC): 4 (Pt required verbal cues to maintain hip precautions during task, pt completed seated at sink) Shower/Bathe Self (QC): 3 (Pt required assistance with washing BLE lower legs a nd feet, as well as min A for balance in stand at GBs. Pt able to wash upper body, periarea, and buttocks in sitting.) Upper Body Dressing (QC): 5 (set up assist) Lower Body Dressing (QC): 3 (Mod A. Pt educated on AE, required max verbal cues with task) On/Off Footwear (QC): 3 (OT educated pt on AE, pt required mod A and max verbal cues for task) Toileting Hygiene (QC): 3 (Mod A with clothing management, Pt completed oc leting seated on [facility] over toilet) Toilet Transfer (QC): 3 (Mod A toilet transfer, Pt transferred from w/c to/from [facility] over toilet) Assessment/Plan Assessment and Plan Assess & Plan/Chief Complaint Assessment: Debility Falls Right total hip replacement 04/17/20 AF Coumadin treatment SLUMS 9 HTN Anemia Plan: Monitor BP Monitor INR IRF protocol 05/09/20: Venofer for low iron and anemia Check B12 and TSH due to dementia Supportive care BM regimen 05/10/20: IV iron infusion Monitor for falls and impulsiveness 05/11/20: Improved status More lucid IV iron infusions 05/12/20: Monitor BP IV iron infusions BM regimen (1) Status post right hip replacement (2) Atrial fibrillation (3) On warfarin therapy (4) Falls frequently (5) Cognitive deficits (6) Hypertension (7) Anemia (8) Dehydration ELAINE CASTRO DO May 12, 2020 08:52
[2020-05-12] MEDS: LOSARTAN 50 MG (COZAAR) TAB PO SCH (09:11)
[2020-05-12] MEDS: SENNA W/DOCUSATE (SENOKOT S) TABLET PO SCH ×2 (09:11→21:05)
[2020-05-12] MEDS: IRON SUCROSE 200 MG/10 ML (VENOFER) VIAL IV SCH (09:11)
[2020-05-12] MEDS: CARVEDILOL 12.5 MG (COREG) TABLET PO SCH ×2 (09:11→21:01)
[2020-05-12] MEDS: ISOSORBIDE MONONITRATE 30 MG (IMDUR) TAB PO SCH (09:12)
[2020-05-12] MEDS: polyethylene glycoL POWDER 17 GM (MIRALAX) PACK PO SCH ×2 (09:12→21:04)
[2020-05-12] MEDS: ENOXAPARIN 40 MG/0.4 ML (LOVENOX) SYR SC SCH (09:12)
[2020-05-12 17:58] VITALS: BP 155/63
[2020-05-12] MEDS ORDERED: warFARin 2 MG (COUMADIN) TAB PO SCH (18:00)
--- NOTE | 2020-05-12 19:09 | NUR ---
bedside report received from SENIA GUTIERREZ, assume care of pt
[2020-05-12 20:58] VITALS: BP 156/67
[2020-05-12] MEDS: HYDROcodone/APAP 5 MG/325 MG (LORTAB) TAB PO PRN (21:03)
--- NOTE | 2020-05-12 21:03 | NUR ---
pt refused miralax & SENOKOT, c/o rt hip pain level 4/10 on numeric scale, LORTAB 5 1 tab given
--- NOTE | 2020-05-12 21:42 | NUR ---
resting quietly in bed, pain level 0/10 on CNPI SCALE
[2020-05-13 06:02] LABS: BASOPHILS # (AUTO) 0.1 10^3/uL (0.0-0.1); BASOPHILS % (AUTO) 1 % (0-10); EOSINOPHILS # (AUTO) 0.4 10^3/uL (0.0-0.3); EOSINOPHILS % (AUTO) 8 % (0-10); HEMATOCRIT 24 % (40-54); HEMOGLOBIN 7.9 g/dL (13.3-17.7); LYMPHOCYTES # (AUTO) 1.4 10^3/uL (1.0-4.0); LYMPHOCYTES % (AUTO) 28 % (12-44); MEAN CORPUSCULAR HEMOGLOBIN 29 pg (25-34); MEAN CORPUSCULAR HGB CONC 32 g/dL (32-36); MEAN CORPUSCULAR VOLUME 89 fL (80-99); MEAN PLATELET VOLUME 10.4 fL (9.0-12.2); MONOCYTES # (AUTO) 0.6 10^3/uL (0.0-1.0); MONOCYTES % (AUTO) 11 % (0-12); NEUTROPHILS # (AUTO) 2.6 10^3/uL (1.8-7.8); NEUTROPHILS % (AUTO) 52 % (42-75); PLATELET COUNT 262 10^3/uL (130-400); WHITE BLOOD COUNT 5.1 10^3/uL (4.3-11.0)
[2020-05-13 06:15] VITALS: BP 131/60
[2020-05-13 06:19] LABS: INR 1.5 (0.8-1.4); PROTHROMBIN TIME PATIENT 18.8 SEC (12.2-14.7)
[2020-05-13 06:36] LABS: ALBUMIN 3.2 GM/DL (3.2-4.5); CHLORIDE 110 MMOL/L (98-107); SODIUM 141 MMOL/L (135-145)
[2020-05-13 06:38] LABS: CALCIUM 8.4 MG/DL (8.5-10.1)
[2020-05-13 06:39] LABS: GLUCOSE 116 MG/DL (70-105); TOTAL PROTEIN 5.9 GM/DL (6.4-8.2)
[2020-05-13 06:40] LABS: CARBON DIOXIDE 22 MMOL/L (21-32)
[2020-05-13 06:41] LABS: BILIRUBIN,TOTAL 0.3 MG/DL (0.1-1.0)
[2020-05-13 06:42] LABS: ALKALINE PHOSPHATASE 95 U/L (40-136); CREATININE SERUM 1.11 MG/DL (0.60-1.30); GFR ESTIMATED > 60
[2020-05-13 06:43] LABS: BUN/CREATININE RATIO 19
[2020-05-13 06:45] LABS: ALANINE AMINOTRANSFERASE 35 U/L (0-55)
[2020-05-13 08:00] VITALS: BP 134/63
--- NOTE | 2020-05-13 08:08 | PM&R Progress Note ---
Subjective HPI/CC On Admission Date Seen by Provider: May 13, 2020 Time Seen by Provider: 10:00 Subjective/Events-last exam 05/13/20: Hgb 7.9 INR 1.5 will increase Coumadin to 4mg and maintain on Lovenox bridge Bowels moving very well Hemoccult will be ordered 05/12/20: BM yesterday Doing well Labs due tomorrow IV Venofer tolerated 05/11/20: More lucid today Much improved since admit In good spirits today BM+ 05/10/20: IV iron infusion tolerated and updated him on that status BM yesterday Needs 24/7 care so will need to talk to family about disposition Pain with PT right hip replacement Patient settling in well Dementia noted and SLUMS was [address] testing increased from 9 when it was done at [facility] Delirium likely a component but baseline dementia is confirmed Impulsive and tried to get OOB last night Bed alarm in place INR 3.4 so holding Coumadin again tonight Iron level noted so will start Venofer due to severe anemia Checking TSH and B12 also Conferred with RN Reviewed therapy notes Checked meds and labs Review of Systems General: Fatigue, Malaise Neurological: Weakness Objective Exam Vital Signs Vital Signs Date Time Temp Pulse Resp B/P (MAP) Pulse Ox O2 Delivery O2 Flow Rate FiO2 05/13/20 20:30 98 Room Air 05/13/20 16:03 36.7 56 16 128/61 (83) Capillary Refill : Less Than 3 SecondsLess Than 3 Seconds General Appearance: No Apparent Distress, WD/WN, Chronically ill HEENT: PERRL/EOMI, Normal ENT Inspection, Pharynx Normal Neck: Full Range of Motion, Normal Inspection, Non Tender, Supple, Carotid Bruit Respiratory: Chest Non Tender, Lungs Clear, Normal Breath Sounds, No Accessory Muscle Use, No Respiratory Distress Cardiovascular: Regular Rate, Rhythm, No Edema, No Gallop, No JVD, No Murmur, Normal Peripheral Pulses Gastrointestinal: Normal Bowel Sounds, No Organomegaly, No Pulsatile Mass, Non Tender, Soft Back: Normal Inspection, No CVA Tenderness, No Vertebral Tenderness Extremity: Normal Capillary Refill, Normal Inspection, Normal Range of Motion, Non Tender, No Calf Tenderness, No Pedal Edema Neurologic/Psychiatric: Alert, Oriented x3, No Motor/Sensory Deficits, Normal 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 FIM Transfers Therapy Code Descriptions/Definitions Functional [place] Measure: 0=Not Assessed/NA 4=Minimal Assistance 1=Total Assistance 5=Supervision or Setup 2=Maximal Assistance 6=Modified [place] 3=Moderate Assistance 7=Complete IndependenceSCALE: Activities may be completed with or without assistive devices. 8-Byzuzsmtqh-ogqgypn completes the activity by him/herself with no assistance from a helper. 5-Set-up or Clean-up Assistance-helper sets up or cleans up; patient completes activity. [place] assists only prior to or following the activity. 4-Supervision or Touching Assistance-helper provides verbal cues and/or touching/steadying and/or contact guard assistance as patient completes activity. Assistance may be provided throughout the activity or intermittently. 3-Partial/Moderate Assistance-helper does LESS THAN HALF the effort. [place] lifts, holds or supports trunk or limbs, but provides less than half the effort. 2-Substantial/Maximal Assistance-helper does MORE THAN HALF the effort. [place] lifts or holds trunk or limbs and provides more than half the effort. 9-Smuanexua-xrfmor does ALL the effort. Patient does none of the effort to complete the activity. Or, the assistance of 2 or more helpers is required for the patient to complete the activity. If activity was not attempted, code reason: 7-Patient Refused. 9-Not Applicable-not attempted and the patient did not perform the activity before the current illness, exacerbation or injury. 10-Not Attempted due to Environmental Limitations-(lack of equipment, weather restraints, etc.). 88-Not Attempted due to Medical Conditions or Safety Concerns. Roll Left to Right (QC): 6 Sit to Lying (QC): 3 Sit to Stand (QC): 5 Chair/Ndx-im-Gsjcc Xfer(QC): 4 Car Transfer (QC): 3 Gait Training Does the Patient Walk?: Yes Distance: 35'x2 Walk 10 feet (QC): 4 Walk 50 ft with 2 Turns(QC): 4 Walk 150 ft (QC): 88 Walking 10ft/uneven surface-QC: 3 Gait Persons Needed: 1 Gait Assistive Device: FWW Wheelchair Training Does the Pt Use a Wheelchair?: Yes Distance: 150'x4 Wheel 50 ft with 2 turns (QC): 4 Wheel 150 ft (QC): 4 Type of Wheelchair: Manual Stair Training 1 Step (curb) (QC): 88 4 Steps (QC): 88 12 Steps (QC): 88 Balance Picking up an Object (QC): 88 ADL-Treatment Eating (QC): 6 (Pt indicates he had no difficulty with eating breakfast.) Oral Hygiene (QC): 4 (Pt required verbal cues to maintain hip precautions during task, pt completed seated at sink) Shower/Bathe Self (QC): 3 (Pt required assistance with washing BLE lower legs and feet, as well as min A for balance in stand at [facility]. Pt able to wash upper body, periarea, and buttocks in sitting.) Upper Body Dressing (QC): 5 (set up assist) Lower Body Dressing (QC): 3 (Mod A. Pt educated on AE, required max verbal cues with task) On/Off Footwear (QC): 3 (OT educated pt on AE, pt required mod A and max verbal cues for task) Toileting Hygiene (QC): 3 (Mod A with clothing management, Pt completed toileting seated on [facility] over toilet) Toilet Transfer (QC): 3 (Mod A toilet transfer, Pt transferred from w/c to/from [facility] over toilet) Assessment/Plan Assessment and Plan Assess & Plan/Chief Complaint Assessment: Debility Falls Right total hip replacement 04/17/20 AF Coumadin treatment SLUMS 9 HTN Anemia Plan: Monitor BP Monitor INR IRF protocol 05/09/20: Venofer for low iron and anemia Check B12 and TSH due to dementia Supportive care BM regimen 05/10/20: IV iron infusion Monitor for falls and impulsiveness 05/11/20: Improved status More lucid IV iron infusions 05/12/20: Monitor BP IV iron infusions BM regimen 05/13/20: Monitor Hemoglobin Iron infusions Increase Coumadin Check stools for blood (1) Status post right hip replacement (2) Atrial fibrillation (3) On warfarin therapy (4) Falls frequently (5) Cognitive deficits (6) Hypertension (7) Anemia (8) Dehydration ELAINE CASTRO DO May 13, 2020 08:08
--- NOTE | 2020-05-13 09:22 | Occupational Ther Daily Note ---
OT Current Status-Daily Note Subjective Pt seated in recliner, agreeable to OT tx. Pt indicates 1/10 pain in R hip. Pt able to recall 1/3 hip precautions, during tx pt states that he is going to learn how to follow his precautions, but when pt is home or OT is not present he will do tasks how he wants to. OT educated pt on the importance of hip prec autions, but pt insists he may or may not follow them. ADL-Treatment Therapy Code Descriptions/Definitions Functional [place] Measure: 0=Not Assessed/NA 4=Minimal Assistance 1=Total Assistance 5=Supervision or Setup 2=Maximal Assistance 6=Modified [place] 3=Moderate Assistance 7=Complete IndependenceSCALE: Activities may be completed with or without assistive devices. 4-Vtdczoebhr-fxhefzj completes the activity by him/herself with no assistance from a helper. 5-Set-up or Clean-up Assistance-helper sets up or cleans up; patient completes activity. [place] assists only prior to or following the activity. 4-Supervision or Touching Assistance-helper provides verbal cues and/or touching/steadying and/or contact guard assistance as patient completes activity. Assistance may be provided throughout the activity or intermittently. 3-Partial/Moderate Assistance-helper does LESS THAN HALF the effort. [place] lifts, holds or supports trunk or limbs, but provides less than half the effort. 2-Substantial/Maximal Assistance-helper does MORE THAN HALF the effort. [place] lifts or holds trunk or limbs and provides more than half the effort. 6-Wxzxcvxsn-uewxma does ALL the effort. Patient does none of the effort to complete the activity. Or, the assistance of 2 or more helpers is required for the patient to complete the activity. If activity was not attempted, code reason: 7-Patient Refused. 9-Not Applicable-not attempted and the patient did not perform the activity before the current illness, exacerbation or injury. 10-Not Attempted due to Environmental Limitations-(lack of equipment, weather restraints, etc.). 88-Not Attempted due to Medical Conditions or Safety Concerns. Shower/Bathe Self (QC): 4 (CGA in stand at FWW. Pt able to wash upper body and thighs in sitting, buttocks and periare in stand at FWW. OT educated pt on using long handled sponge to wash lower legs/feet. Mod cues to maintain hip precautions.) Upper Body Dressing (QC): 4 (Supervision, pt required 1 verbal cue for orientation of shirt due to pt putting shirt on backwards.) Lower Body Dressing (QC): 3 (Min A standing balance at FWW. Pt able to use ship purser to don/doff underwear and pants. Pt required mod cues to maintain hip precautions wtih task.) On/Off Footwear: 3 (Min A with orientation of sock onto sock aide, min cues to maintain hip precautions during task, and min cues to correctly use AE.) Other Treatment Pt seated in recliner, declined showering but agreeable to sponge bath. OT educated pt on hip precautions, pt recalled 07/28. Pt indicates when OT is not present he will complete tasks how he feels like and he may or may not follow his hip precautions. OT educated pt on the importance of his precautions pt pt still indicates he will do what he wants to. Pt indicates he completes a sponge bath once a day, and showers one or two times a week typically. OT set up for ADL session, pt completed sponge bath and dressing at recliner. Pt required CGA- Min A during stands at FWW, and moderate cues throughout tx to maintain hip precautions. Pt required increased time with all ADLS on this date, telling stories and talking throughout task. Pt required redirection to tasks due to pt not being able to talk and complete task at the same time. Post OT tx, pt seated in recliner, call light in reach and all needs met. Education OT Patient Education: Correct positioning, Modified ADL techniques, Progress toward Goal/Update tx plan, Purpose of tx/functional activities, Reviewed precautions, Safety issues, Transfer techniques, Use of adapted equipment Teaching Recipient: Patient Teaching Methods: Discussion Response to Teaching: Verbalize Understanding, Reinforcement Needed OT Group Home Goals Power Superintendent Goals Time Frame: May 31, 2020 Eating (QC): 6 Oral Hygiene (QC): 6 Toileting Hygiene (QC): 6 Shower/Bathe Self (QC): 6 Upper Body Dressing (QC): 6 Lower Body Dressing (QC): 6 On/Off Footwear (QC): 6 Additional Goals: 1-Demonstrate ADL Tasks, 2-Verbalize Understanding, 3- ImproveStrength/[place] 1=Demonstrate adherence to instructed precautions during ADL tasks. 2=Patient will verbalize/demonstrate understanding of assistive devices/modifications for ADL. 3=Patient will improve strength/tolerance for activity to enable patient to perform ADL's. OT Education/Plan Problem List/Assessment Assessment: Decreased Activ Tolerance, Decreased Safety Aware, Decreased UE Strength, Impaired Funct Balance, Impaired I ADL's, Impaired Self-Care Skills Discharge Recommendations Plan/Recommendations: Continue POC Treatment Plan/Plan of Care Patient would benefit from OT for education, treatment and training to promote independence in ADL's, mobility, safety and/or upper extremity function for ADL's. Plan of Care: ADL Retraining, Functional Mobility, Group Exercise/Act as Ind, UE Funct Exercise/Act Treatment Duration: May 31, 2020 Frequency: At least 5 of 7 days/Wk (IRF) Estimated Hrs Per Day: 1.5 hours per day Agreement: Yes Rehab Potential: Fair Time/GCodes Start Time: 08:00 Stop Time: 09:15 Total Time Billed (hr/min): 75 Billed Treatment Time 1, ADL 5 LEILANI CARSON OT May 13, 2020 09:22
[2020-05-13] MEDS: CARVEDILOL 12.5 MG (COREG) TABLET PO SCH ×2 (09:32→20:33)
[2020-05-13] MEDS: polyethylene glycoL POWDER 17 GM (MIRALAX) PACK PO SCH ×2 (09:32→20:30)
[2020-05-13] MEDS: LOSARTAN 50 MG (COZAAR) TAB PO SCH (09:32)
[2020-05-13] MEDS: SENNA W/DOCUSATE (SENOKOT S) TABLET PO SCH ×2 (09:32→20:33)
[2020-05-13] MEDS: ISOSORBIDE MONONITRATE 30 MG (IMDUR) TAB PO SCH (09:32)
--- NOTE | 2020-05-13 09:37 | Speech Therapy Daily Note ---
Speech Daily Progress Note Subjective Date Seen by Provider: May 13, 2020 Time Seen by Provider: 00:30 Patient was sitting in his recliner, quite talkative this date. Objective Patient completed a series of q/a related to his daily needs at 90% with minimal cues and moderate redirection. Assessment Assessment Current Status: Good Progress Treatment Plan Continue Plan of Care Speech Short Term Goals Short Term Goals Short Term Goals 1) Patient will complete memory tasks related to his daily needs at 80% or greater with minimal cues. 2) Patient will complete safety awareness tasks related to his daily needs at 80% or greater with minimal cues. 3) Patient will complete problem solving tasks related to his daily needs at 80% or greater with minimal cues. 4) Patient will attend to task at 80% or greater for improving level of f unction. Speech [place] Supervisor Goals [place] Supervisor Goals Patient will improve cognitive-communication abilities in order to complete daily tasks with minimal assist. Speech-Plan Patient/Family Goals Patient/Family Goals: Patient plans on returning home where he lives with his water. Treatment Plan Speech Therapy Treatment Plan: Continue Plan of Care Treatment Duration: May 17, 2020 Frequency: 4 times per week (Patient will receive skilled ST 4-5x per week) Estimated Hrs Per Day: .5 hour per day Rehab Potential: Fair Barriers to Learning: Patient's medical issues, age Pt/Family Agrees to Plan: Yes Safety Risks/Education Teaching Recipient: Patient Teaching Methods: Demonstration, Discussion Response to Teaching: Verbalize Understanding, Return Demonstration Education Topics Provided: Continued safety in his room Time Speech Therapy Time In: 09:30 Speech Therapy Time Out: 10:00 Total Billed Time: 30 Billed Treatment Time 1, VANI Cardenas May 13, 2020 09:37
[2020-05-13] MEDS: ENOXAPARIN 40 MG/0.4 ML (LOVENOX) SYR SC SCH (09:48)
--- NOTE | 2020-05-13 12:16 | Physical Therapy Daily Note ---
PT Daily Note-Current Subjective Pt. states he feels he is better, no pain to 5/10 briefly during Rx with exercise. "Thank you for listening to me rattle on" "I like to talk" Pain Numeric Pain Scale: 5-Moderate Pain Location: Right Location Body Site: Hip Pain Description: Ache Mental Status Patient Orientation: Person, Place Attachments: Other-See Comments (mask while out of room) Transfers SCALE: Activities may be completed with or without assistive devices. 2-Wgqnipdlrg-bvvmhrb completes the activity by him/herself with no assistance from a helper. 5-Set-up or Clean-up Assistance-helper sets up or cleans up; patient completes activity. [place] assists only prior to or following the activity. 4-Supervision or Touching Assistance-helper provides verbal cues and/or touching/steadying and/or contact guard assistance as patient completes activity. Assistance may be provided throughout the activity or intermittently. 3-Partial/Moderate Assistance-helper does LESS THAN HALF the effort. [place] lifts, holds or supports trunk or limbs, but provides less than half the effort. 2-Substantial/Maximal Assistance-helper does MORE THAN HALF the effort. [place] lifts or holds trunk or limbs and provides more than half the effort. 6-Wonytfezk-uydkio does ALL the effort. Patient does none of the effort to complete the activity. Or, the assistance of 2 or more helpers is required for the patient to complete the activity. If activity was not attempted, code reason: 7-Patient Refused. 9-Not Applicable-not attempted and the patient did not perform the activity before the current illness, exacerbation or injury. 10-Not Attempted due to Environmental Limitations-(lack of equipment, weather restraints, etc.). 88-Not Attempted due to Medical Conditions or Safety Concerns. Roll Left & Right (QC): 6 Sit to Lying (QC): 6 Lying to Sitting/Side of Bed(Q: 5 Sit to Stand (QC): 5 instructed in safety for stand to sit, backing safely as pt. tends to retro a bit Weight Bearing Weight Bearing/Tolerated Full Weight Bearing Gait Training Does the Patient Walk?: Yes Walk 10 feet (QC): 5 Walk 50 ft with 2 Turns(QC): 5 Gait Persons Needed: 1 Gait Assistive Device: FWW very slow, flexed at right hip and knee, flexed trunk, heavy wt bearing on FWW, fatigues quickly, needs frequent rest breaks sitting Exercises Supine Ex: Ankle pumps, Quad Set, Glut sets, Heel Slides (assisted right), Short Arc Quads (assisted right), Straight leg raise (assisted right), Hip abd/add (assisted right) Supine Reps: 15 Seated Therapy Exercises: Ankle pumps, Sit to stand, Long arc quads, Hip abd/add Seated Reps: 12 Assessment Current Status: Good Progress pain in better control, fatigues , needs many rest breaks PT Short Term Goals Short Term Goals Time Frame: May 15, 2020 Roll Left & Right: 6 Sit to lyin Lying to sitting on side of be: 4 Sit to stand: 4 Chair/hjj-am-qfehz transfer: 4 Walk 10 feet: 4 Walk 50 feet with two turns: 4 1 step (curb): 3 PT Fpc Goals [place] Machine Operator Goals PT [place] Machine Operator Goals Time Frame: May 29, 2020 Roll Left & Right (QC): 6 Sit to Lying (QC): 6 Lying-Sitting on Side/Bed(QC): 6 Sit to Stand (QC): 6 Chair/Shq-jr-Usfut Xfer(QC): 6 Toilet Transfer (QC): 6 Car Transfer (QC): 6 Does the Patient Walk: Yes Walk 10 feet (QC): 4 Walk 50ft with 2 Turns (QC): 4 Walk 150 ft (QC): 4 Walking 10ft on Uneven Surface: 4 1 Step (curb) (QC): 4 4 Steps (QC): 4 12 Steps (QC): 88 Picking up an Object (QC): 4 Wheel 50 feet with 2 turns (QC: 6 Type: Manual Wheel 150 feet: 6 Type: Manual PT Plan Treatment/Plan Treatment Plan: Continue Plan of Care Treatment Plan: Bed Mobility, Education, Functional Activity Manuela, Functional Strength, Group Therapy, Gait, Safety, Therapeutic Exercise, Transfers Treatment Duration: May 22, 2020 Frequency: At least 5 of 7 days/Wk (IRF) Estimated Hrs Per Day: 1.5 hours per day Patient and/or Family Agrees t: Yes Safety Risks/Education Patient Education: Gait Training, Transfer Techniques, Correct Positioning, Disease Process, Safety Issues Teaching Recipient: Patient Teaching Methods: Demonstration, Discussion Response to Teaching: Verbalize Understanding, Return Demonstration, Reinforcement Needed Time/GCodes Time In: 1100 Time Out: 1215 Total Billed Treatment Time: 75 Total Billed Treatment 1,GT25m,FA20m,EX30m LONNY OCONNELL CODE AND TEST CLERK May 13, 2020 12:16
[2020-05-13] MEDS ORDERED: FURO40TA4 PO (14:30)
[2020-05-13 16:03] VITALS: BP 128/61
[2020-05-13] MEDS: warFARin 4 MG (COUMADIN) TAB PO SCH (18:59)
[2020-05-13] MEDS: HYDROcodone/APAP 5 MG/325 MG (LORTAB) TAB PO PRN (20:34)
[2020-05-14 06:05] VITALS: BP 156/69
[2020-05-14 06:05] LABS: INR 1.4 (0.8-1.4)
[2020-05-14] MEDS: SENNA W/DOCUSATE (SENOKOT S) TABLET PO SCH ×2 (08:04→21:04)
[2020-05-14] MEDS: ISOSORBIDE MONONITRATE 30 MG (IMDUR) TAB PO SCH (08:04)
[2020-05-14] MEDS: LOSARTAN 50 MG (COZAAR) TAB PO SCH (08:04)
[2020-05-14] MEDS: CARVEDILOL 12.5 MG (COREG) TABLET PO SCH ×2 (08:04→21:03)
[2020-05-14 08:05] VITALS: BP 151/69
--- NOTE | 2020-05-14 08:30 | PM&R Progress Note ---
Subjective HPI/CC On Admission Date Seen by Provider: May 14, 2020 Time Seen by Provider: 10:00 Subjective/Events-last exam 05/14/20: INR 1.4 Coumadin of 4mg will be increased Lovenox for bridge Hemoccult pending Doing pretty well 05/13/20: Hgb 7.9 INR 1.5 will increase Coumadin to 4mg and maintain on Lovenox bridge Bowels moving very well Hemoccult will be ordered 05/12/20: BM yesterday Doing well Labs due tomorrow IV Venofer tolerated 05/11/20: More lucid today Much improved since admit In good spirits today BM+ 05/10/20: IV iron infusion tolerated and updated him on that status BM yesterday Needs 24/7 care so will need to talk to family about disposition Pain with PT right hip replacement Patient settling in well Dementia noted and SLUMS was [address] testing [place] 9 [place] [facility] [place] Delirium likely a component but baseline dementia is confirmed Impulsive and tried to get OOB last night Bed alarm in place INR 3.4 so holding Coumadin again tonight Iron level noted so will start Venofer due to severe anemia Checking TSH and B12 also Conferred with RN Reviewed therapy notes Checked meds and labs Review of Systems General: Fatigue, Malaise Neurological: Weakness Objective Exam Vital Signs Vital Signs Date Time Temp Pulse Resp B/P (MAP) Pulse Ox O2 Delivery O2 Flow Rate FiO2 05/14/20 21:06 93 Room Air 05/14/20 21:01 62 18 177/74 (108) 05/14/20 16:11 37.0 Capillary Refill : Less Than 3 SecondsLess Than 3 Seconds General Appearance: No Apparent Distress, WD/WN, Chronically ill HEENT: PERRL/EOMI, Normal ENT Inspection, Pharynx Normal Neck: Full Range of Motion, Normal Inspection, Non Tender, Supple, Carotid Bruit Respiratory: Chest Non Tender, Lungs Clear, Normal Breath Sounds, No Accessory Muscle Use, No Respiratory Distress Cardiovascular: Regular Rate, Rhythm, No Edema, No Gallop, No JVD, No Murmur, Normal Peripheral Pulses Gastrointestinal: Normal Bowel Sounds, No Organomegaly, No Pulsatile Mass, Non Tender, Soft Back: Normal Inspection, No CVA Tenderness, No Vertebral Tenderness Extremity: Normal Capillary Refill, Normal Inspection, Normal Range of Motion, Non Tender, No Calf Tenderness, No Pedal Edema Neurologic/Psychiatric: Alert, Oriented x3, No Motor/Sensory Deficits, Normal Mood/Affect, nuclear chemistry technician II-XII Norm as Tested, Abnormal Gait, Motor Weakness (right leg due to pain), Other (poor recall) Skin: Normal Color, Warm/Dry Lymphatic: No Adenopathy Results/Procedures Lab Patient resulted labs reviewed. FIM Transfers Therapy Code Descriptions/Definitions Functional [place] Measure: 0=Not Assessed/NA 4=Minimal Assistance 1=Total Assistance 5=Supervision or Setup 2=Maximal Assistance 6=Modified [place] 3=Moderate Assistance 7=Complete IndependenceSCALE: Activities may be completed with or without assistive devices. 4-Rtthwbrxau-tredzzh completes the activity by him/herself with no assistance from a helper. 5-Set-up or Clean-up Assistance-helper sets up or cleans up; patient completes activity. [place] assists only prior to or following the activity. 4-Supervision or Touching Assistance-helper provides verbal cues and/or touching/steadying and/or contact guard assistance as patient completes activity. Assistance may be provided throughout the activity or intermittently. 3-Partial/Moderate Assistance-helper does LESS THAN HALF the effort. [place] lifts, holds or supports trunk or limbs, but provides less than half the effort. 2-Substantial/Maximal Assistance-helper does MORE THAN HALF the effort. [place] lifts or holds trunk or limbs and provides more than half the effort. 9-Qayboocgr-ggiddi does ALL the effort. Patient does none of the effort to complete the activity. Or, the assistance of 2 or more helpers is required for the patient to complete the activity. If activity was not attempted, code reason: 7-Patient Refused. 9-Not Applicable-not attempted and the patient did not perform the activity before the current illness, exacerbation or injury. 10-Not Attempted due to Environmental Limitations-(lack of equipment, weather restraints, etc.). 88-Not Attempted due to Medical Conditions or Safety Concerns. Roll Left to Right (QC): 6 Sit to Lying (QC): 6 Sit to Stand (QC): 5 Chair/Atp-ow-Yzczg Xfer(QC): 4 Car Transfer (QC): 3 Gait Training Does the Patient Walk?: Yes Distance: 35'x2 Walk 10 feet (QC): 5 Walk 50 ft with 2 Turns(QC): 5 Walk 150 ft (QC): 88 Walking 10ft/uneven surface-QC: 3 Gait Persons Needed: 1 Gait Assistive Device: FWW Wheelchair Training Does the Pt Use a Wheelchair?: Yes Distance: 150'x4 Wheel 50 ft with 2 turns (QC): 4 Wheel 150 ft (QC): 4 Type of Wheelchair: Manual Stair Training 1 Step (curb) (QC): 88 4 Steps (QC): 88 12 Steps (QC): 88 Balance Picking up an Object (QC): 88 ADL-Treatment Eating (QC): 6 (Pt indicates he had no difficulty with eating breakfast.) Oral Hygiene (QC): 4 (Pt required verbal cues to maintain hip precautions during task, pt completed seated at sink) Shower/Bathe Self (QC): 4 (CGA in stand at FWW. Pt able to wash upper body and thighs in sitting, buttocks and periare in stand at FWW. OT educated pt on using long handled sponge to wash lower legs/feet. Mod cues to maintain hip precautions.) Upper Body Dressing (QC): 4 (Supervision, pt required 1 verbal cue for orientation of shirt due to pt putting shirt on backwards.) Lower Body Dressing (QC): 3 (Min A standing balance at FWW. Pt able to use batter scaler to don/doff underwear and pants. Pt required mod cues to maintain hip precautions wtih task.) On/Off Footwear (QC): 3 (Min A with orientation of sock onto sock aide, min cues to maintain hip precautions during task, and min cues to correctly use AE.) Toileting Hygiene (QC): 3 (Mod A with clothing management, Pt completed toileting [place] [facility] [place] Toilet Transfer (QC): 3 (Mod A toilet transfer, Pt transferred [place] [facility] [place] Assessment/Plan Assessment and Plan Assess & Plan/Chief Complaint Assessment: Debility Falls Right total hip replacement 04/17/20 AF Coumadin treatment SLUMS 9 HTN Anemia Plan: Monitor BP Monitor INR IRF protocol 05/09/20: Venofer for low iron and anemia Check B12 and TSH due to dementia Supportive care BM regimen 05/10/20: IV iron infusion Monitor for falls and impulsiveness 05/11/20: Improved status More lucid IV iron infusions 05/12/20: Monitor BP IV iron infusions BM regimen 05/13/20: Monitor Hemoglobin Iron infusions Increase Coumadin Check stools for blood 05/14/20: Monitor INR Maintain Lovenox Monitor closely (1) Status post right hip replacement (2) Atrial fibrillation (3) On warfarin therapy (4) Falls frequently (5) Cognitive deficits (6) Hypertension (7) Anemia (8) Dehydration ELAINE CASTRO DO May 14, 2020 08:30
[2020-05-14] MEDS: IRON SUCROSE 200 MG/10 ML (VENOFER) VIAL IV SCH (09:08)
[2020-05-14] MEDS: ENOXAPARIN 40 MG/0.4 ML (LOVENOX) SYR SC SCH (09:08)
[2020-05-14] MEDS: polyethylene glycoL POWDER 17 GM (MIRALAX) PACK PO SCH ×2 (09:10→21:05)
--- NOTE | 2020-05-14 09:11 | Physical Therapy Daily Note ---
PT Daily Note-Current Subjective Pt sitting in recliner upon arrival. Pt agrees to PT. Pain Location: No Pain Reported Mental Status Patient Orientation: Person, Confused, Place Transfers SCALE: Activities may be completed with or without assistive devices. 5-Mtfztcpcmi-drhdpbi completes the activity by him/herself with no assistance from a helper. 5-Set-up or Clean-up Assistance-helper sets up or cleans up; patient completes activity. [place] assists only prior to or following the activity. 4-Supervision or Touching Assistance-helper provides verbal cues and/or touching/steadying and/or contact guard assistance as patient completes activity. Assistance may be provided throughout the activity or intermittently. 3-Partial/Moderate Assistance-helper does LESS THAN HALF the effort. [place] lifts, holds or supports trunk or limbs, but provides less than half the effort. 2-Substantial/Maximal Assistance-helper does MORE THAN HALF the effort. [place] lifts or holds trunk or limbs and provides more than half the effort. 5-Vrotcjxlx-apwnah does ALL the effort. Patient does none of the effort to complete the activity. Or, the assistance of 2 or more helpers is required for the patient to complete the activity. If activity was not attempted, code reason: 7-Patient Refused. 9-Not Applicable-not attempted and the patient did not perform the activity before the current illness, exacerbation or injury. 10-Not Attempted due to Environmental Limitations-(lack of equipment, weather restraints, etc.). 88-Not Attempted due to Medical Conditions or Safety Concerns. Sit to Stand (QC): 5 Toilet Transfer (QC): 5 Weight Bearing Weight Bearing/Tolerated Full Weight Bearing Gait Training Does the Patient Walk?: Yes Distance: 100' x2 Walk 10 feet (QC): 5 Walk 50 ft with 2 Turns(QC): 5 Walk 150 ft (QC): 5 Gait Persons Needed: 1 Gait Assistive Device: FWW Exercises Seated Therapy Exercises: Ankle pumps, Long arc quads, Hip flexion, Kicking activity, Hip abd/add, Glut set Seated Reps: 15 Treatments TF to standing then uses BR. Pt amb. in hallway, taking RB as needed. Complete s Seated EX before returning to room to rest. All needs met, call light in hand. Assessment Current Status: Fair Progress Pt likes to talk and has to kept on task. Pt does not follow Hip Precautions and states that he wont follow them at home unless he wants to. PT Short Term Goals Short Term Goals Time Frame: May 15, 2020 Roll Left & Right: 6 Sit to lyin Lying to sitting on side of be: 4 Sit to stand: 4 Chair/scx-dp-mvkkr transfer: 4 Walk 10 feet: 4 Walk 50 feet with two turns: 4 1 step (curb): 3 PT Halfway Goals Financial Cost Analyst Goals PT Financial Cost Analyst Goals Time Frame: May 29, 2020 Roll Left & Right (QC): 6 Sit to Lying (QC): 6 Lying-Sitting on Side/Bed(QC): 6 Sit to Stand (QC): 6 Chair/Aua-dk-Sydlb Xfer(QC): 6 Toilet Transfer (QC): 6 Car Transfer (QC): 6 Does the Patient Walk: Yes Walk 10 feet (QC): 4 Walk 50ft with 2 Turns (QC): 4 Walk 150 ft (QC): 4 Walking 10ft on Uneven Surface: 4 1 Step (curb) (QC): 4 4 Steps (QC): 4 12 Steps (QC): 88 Picking up an Object (QC): 4 Wheel 50 feet with 2 turns (QC: 6 Type: Manual Wheel 150 feet: 6 Type: Manual PT Plan Problem List Problem List: Activity Tolerance, Safety Treatment/Plan Treatment Plan: Continue Plan of Care Treatment Plan: Bed Mobility, Education, Functional Activity Manuela, Functional Strength, Group Therapy, Gait, Safety, Therapeutic Exercise, Transfers Treatment Duration: May 22, 2020 Frequency: At least 5 of 7 days/Wk (IRF) Estimated Hrs Per Day: 1.5 hours per day Patient and/or Family Agrees t: Yes Safety Risks/Education Patient Education: Gait Training, Transfer Techniques, Reviewed Precautions, Correct Positioning, Safety Issues Teaching Recipient: Patient Teaching Methods: Discussion Response to Teaching: Reinforcement Needed Time/GCodes Time In: 815 Time Out: 900 Total Billed Treatment Time: 45 Total Billed Treatment 1, GT (15m) , FA (15m) & EX (15m) KJ BARGER ELECTRONIC EQUIPMENT INSTALLER May 14, 2020 09:11
--- NOTE | 2020-05-14 09:53 | Speech Therapy Daily Note ---
Speech Daily Progress Note Subjective Date Seen by Provider: May 14, 2020 Time Seen by Provider: 00:30 Patient was resting in his recliner when I entered his room. Objective Patient completed a series of "what's wrong with this picture?" referring to unsafe scenarios with 85% given moderate verbal and visual cues. Assessment Assessment Current Status: Good Progress Treatment Plan Continue Plan of Care Speech Short Term Goals Short Term Goals Short Term Goals 1) Patient will complete memory tasks related to his daily needs at 80% or greater with minimal cues. 2) Patient will complete safety awareness tasks related to his daily needs at 80% or greater with minimal cues. 3) Patient will complete problem solving tasks related to his daily needs at 80% or greater with minimal cues. 4) Patient will attend to task at 80% or greater for improving level of function. Speech [place] Goals Route Sales Delivery Driver Goals Patient will improve cognitive-communication abilities in order to complete daily tasks with minimal assist. Speech-Plan Patient/Family Goals Patient/Family Goals: Patient plans on returning to his home where he lives with his . Treatment Plan Speech Therapy Treatment Plan: Continue Plan of Care Treatment Duration: May 17, 2020 Frequency: 4 times per week (Patient will receive skilled ST 4-5x per week) Estimated Hrs Per Day: .5 hour per day Rehab Potential: Fair Barriers to Learning: Patient's age and recent health decline Pt/Family Agrees to Plan: Yes Safety Risks/Education Teaching Recipient: Patient Teaching Methods: Demonstration, Discussion Response to Teaching: Verbalize Understanding, Return Demonstration Education Topics Provided: Continued safety within his room Time Speech Therapy Time In: 09:30 Speech Therapy Time Out: 10:00 Total Billed Time: 30 Billed Treatment Time 1MILO BETH[address] ST May 14, 2020 09:53
--- NOTE | 2020-05-14 11:43 | Occupational Ther Daily Note ---
OT Current Status-Daily Note Subjective Pt seated in recliner, agreeable to OT tx. Pt denies showering today, stating he would prefer a sponge bath. He typically only showers 1-2 times a week but he likes to wash up daily. Pt recalled 2/3 hip precautions on this date, but told OT that he is not going to adhere to them when OT is not there. Pt required moderate cues throughout session to adhere to precautions ADL-Treatment Therapy Code Descriptions/Definitions Functional [place] Measure: 0=Not Assessed/NA 4=Minimal Assistance 1=Total Assistance 5=Supervision or Setup 2=Maximal Assistance 6=Modified [place] 3=Moderate Assistance 7=Complete IndependenceSCALE: Activities may be completed with or without assistive devices. 2-Cujlsjzxda-ayrkjro completes the activity by him/herself with no assistance from a helper. 5-Set-up or Clean-up Assistance-helper sets up or cleans up; patient completes activity. [place] assists only prior to or following the activity. 4-Supervision or Touching Assistance-helper provides verbal cues and/or touching/steadying and/or contact guard assistance as patient completes activity. Assistance may be provided throughout the activity or intermittently. 3-Partial/Moderate Assistance-helper does LESS THAN HALF the effort. [place] lifts, holds or supports trunk or limbs, but provides less than half the effort. 2-Substantial/Maximal Assistance-helper does MORE THAN HALF the effort. [place] lifts or holds trunk or limbs and provides more than half the effort. 5-Ngbybicdg-mfpmpw does ALL the effort. Patient does none of the effort to complete the activity. Or, the assistance of 2 or more helpers is required for the patient to complete the activity. If activity was not attempted, code reason: 7-Patient Refused. 9-Not Applicable-not attempted and the patient did not perform the activity before the current illness, exacerbation or injury. 10-Not Attempted due to Environmental Limitations-(lack of equipment, weather restraints, etc.). 88-Not Attempted due to Medical Conditions or Safety Concerns. Oral Hygiene (QC): 4 (CGA) Shower/Bathe Self (QC): 4 (SBA, pt completed sponge bath seated at recliner, able to wash/dry all parts. SBA in stand at FWW as pt completed pericare and washed buttocks.) Upper Body Dressing (QC): 6 (independent, pt able to doff/don thread pulling machine attendant shirt.) Lower Body Dressing (QC): 4 (moderate verbal cues to use AE in order to adhere to hip precations. Pt able to doff/edil brief and pants.) On/Off Footwear: 3 (Pt able to doff socks using flavoring machine operator. Min A using sock aide to don socks, with moderate verbal cues.) Pt required increased time with all ADLS on this date, and moderate cues to adhere to hip precautions during ADL tx. Other Treatment Pt seated at recliner. Pt able to recall 2/3 hip precautions, unable to recall precaution of not crossing his legs. Pt requests sponge bath at recliner, stating he only showers 1-2 times a week because a doctor he likes to watch on TV recommended this amount. Pt able to doff shirt and complete upper body bathing, then donned shirt. Pt stood at FWW to manage pants down, then used AE to complete doffing of pants. Pt washed periarea and buttocks in stand at FWW with SBA, he then sat at recliner to wash LEs using long handled sponge to wash lower legs and feet. Pt then attempted to pickling grader pants from floor by bending forward without following hip precautions. OT instructed pt to stop, and pt replied "just look away" and continued to reach towards floor. OT educated pt on importance of his hip precautions, pt indicates that he appreciates OT working with him and teaching him how to complete ADLs with AE, but he is going to do what he wants to when OT is not around. Pt completed lower body dressing and footwear using AE, requiring moderate verbal cues with task. Pt stood at FWW, ambulating into the restroom with CGA. Pt stood at sink to brush his teeth with CGA, pt then returned to his recliner with CGA. Post OT tx, pt seated in recliner, call light in reach and all needs met. Education OT Patient Education: Correct positioning, Energy conservation, Modified ADL techniques, Progress toward Goal/Update tx plan, Purpose of tx/functional activities, Reviewed precautions, Rehab process, Safety issues, Transfer techniques, Use of adapted equipment Teaching Recipient: Patient Teaching Methods: Discussion Response to Teaching: Verbalize Understanding, Reinforcement Needed OT Ground Instructor Basic Goals Ground Instructor Basic Goals Time Frame: May 31, 2020 Eating (QC): 6 Oral Hygiene (QC): 6 Toileting Hygiene (QC): 6 Shower/Bathe Self (QC): 6 Upper Body Dressing (QC): 6 Lower Body Dressing (QC): 6 On/Off Footwear (QC): 6 Additional Goals: 1-Demonstrate ADL Tasks, 2-Verbalize Understanding, 3- ImproveStrength/[place]uel[place] 1=Demonstrate adherence to instructed precautions during ADL tasks. 2=Patient will verbalize/demonstrate understanding of assistive devices/modifications for ADL. 3=Patient will improve strength/tolerance for activity to enable patient to perform ADL's. OT Education/Plan Problem List/Assessment Assessment: Decreased Activ Tolerance, Decreased UE Strength, Impaired Funct Balance, Impaired I ADL's, Impaired Self-Care Skills Discharge Recommendations Plan/Recommendations: Continue POC Treatment Plan/Plan of Care Patient would benefit from OT for education, treatment and training to promote independence in ADL's, mobility, safety and/or upper extremity function for ADL's. Plan of Care: ADL Retraining, Functional Mobility, Group Exercise/Act as Ind, UE Funct Exercise/Act Treatment Duration: May 31, 2020 Frequency: At least 5 of 7 days/Wk (IRF) Estimated Hrs Per Day: 1.5 hours per day Agreement: Yes Rehab Potential: Fair Time/GCodes Start Time: 10:00 Stop Time: 11:15 Total Time Billed (hr/min): 75 Billed Treatment Time 1, ADL 5 LEILANI CARSON OT May 14, 2020 11:43
--- NOTE | 2020-05-14 14:51 | Physical Therapy Daily Note ---
PT Daily Note-Current Subjective Pt sitting in recliner upon arrival. Pt agrees to PT. Pain Location: No Pain Reported Mental Status Patient Orientation: Person, Confused, Place Transfers SCALE: Activities may be completed with or without assistive devices. 3-Mxqbcfvfzf-crplqnb completes the activity by him/herself with no assistance from a helper. 5-Set-up or Clean-up Assistance-helper sets up or cleans up; patient completes activity. [place] assists only prior to or following the activity. 4-Supervision or Touching Assistance-helper provides verbal cues and/or touching/steadying and/or contact guard assistance as patient completes activity. Assistance may be provided throughout the activity or intermittently. 3-Partial/Moderate Assistance-helper does LESS THAN HALF the effort. [place] lifts, holds or supports trunk or limbs, but provides less than half the effort. 2-Substantial/Maximal Assistance-helper does MORE THAN HALF the effort. [place] lifts or holds trunk or limbs and provides more than half the effort. 1-Exhstteky-lzoqid does ALL the effort. Patient does none of the effort to complete the activity. Or, the assistance of 2 or more helpers is required for the patient to complete the activity. If activity was not attempted, code reason: 7-Patient Refused. 9-Not Applicable-not attempted and the patient did not perform the activity before the current illness, exacerbation or injury. 10-Not Attempted due to Environmental Limitations-(lack of equipment, weather restraints, etc.). 88-Not Attempted due to Medical Conditions or Safety Concerns. Sit to Stand (QC): 5 Weight Bearing Weight Bearing/Tolerated Full Weight Bearing Gait Training Does the Patient Walk?: Yes Distance: 150' Walk 10 feet (QC): 5 Walk 50 ft with 2 Turns(QC): 5 Walk 150 ft (QC): 5 Gait Persons Needed: 1 Gait Assistive Device: FWW Walks with flexion of hip, encouraged to stand up tall and WB thru LE not UE. Treatments TF to standing and amb. in hallway with RB. Returns to room to rest Supine in bed. All needs met, call light in hand. Assessment Current Status: Fair Progress Pt fatigues easily and does not follow Hip Precautions. Pt states if he feels he needs to then he will. PT Short Term Goals Short Term Goals Time Frame: May 15, 2020 Roll Left & Right: 6 Sit to lyin Lying to sitting on side of be: 4 Sit to stand: 4 Chair/hbe-sq-oedtl transfer: 4 Walk 10 feet: 4 Walk 50 feet with two turns: 4 1 step (curb): 3 PT Fdc Goals Insulation Technician Goals PT Insulation Technician Goals Time Frame: May 29, 2020 Roll Left & Right (QC): 6 Sit to Lying (QC): 6 Lying-Sitting on Side/Bed(QC): 6 Sit to Stand (QC): 6 Chair/Oon-qa-Xwkuf Xfer(QC): 6 Toilet Transfer (QC): 6 Car Transfer (QC): 6 Does the Patient Walk: Yes Walk 10 feet (QC): 4 Walk 50ft with 2 Turns (QC): 4 Walk 150 ft (QC): 4 Walking 10ft on Uneven Surface: 4 1 Step (curb) (QC): 4 4 Steps (QC): 4 12 Steps (QC): 88 Picking up an Object (QC): 4 Wheel 50 feet with 2 turns (QC: 6 Type: Manual Wheel 150 feet: 6 Type: Manual PT Plan Problem List Problem List: Activity Tolerance, Functional Strength, Safety Treatment/Plan Treatment Plan: Continue Plan of Care Treatment Plan: Bed Mobility, Education, Functional Activity Manuela, Functional Strength, Group Therapy, Gait, Safety, Therapeutic Exercise, Transfers Treatment Duration: May 22, 2020 Frequency: At least 5 of 7 days/Wk (IRF) Estimated Hrs Per Day: 1.5 hours per day Patient and/or Family Agrees t: Yes Safety Risks/Education Patient Education: Gait Training, Transfer Techniques, Reviewed Precautions, Correct Positioning, Safety Issues Teaching Recipient: Patient Teaching Methods: Discussion Response to Teaching: Reinforcement Needed Time/GCodes Time In: 1300 Time Out: 1330 Total Billed Treatment Time: 30 Total Billed Treatment 1, GT (20m) & FA (10m) KJ BARGER [employer] PILOT May 14, 2020 14:51
[2020-05-14 16:11] VITALS: BP 128/61
[2020-05-14] MEDS: warFARin 4 MG (COUMADIN) TAB PO SCH (17:06)
--- NOTE | 2020-05-14 19:07 | NUR ---
bedside report received from MAIRA GUTIERREZ, assume care of pt
[2020-05-14 21:01] VITALS: BP 177/74
--- NOTE | 2020-05-14 21:03 | NUR ---
pt took Senokot but refuses miralax c/o rt hip pain level 4/10 on numeric scale, Lortab 5 1 tab given
[2020-05-14] MEDS: HYDROcodone/APAP 5 MG/325 MG (LORTAB) TAB PO PRN (21:04)
--- NOTE | 2020-05-14 21:45 | NUR ---
resting quietly in bed, pain level 0/10 on CNPI scale
[2020-05-15 05:22] VITALS: BP 137/64
[2020-05-15 06:22] LABS: INR 1.6 (0.8-1.4); PROTHROMBIN TIME PATIENT 19.2 SEC (12.2-14.7)
--- NOTE | 2020-05-15 06:22 | PM&R Progress Note ---
Subjective HPI/CC On Admission Date Seen by Provider: May 15, 2020 Time Seen by Provider: 09:00 Subjective/Events-last exam 05/15/20: Pt doing a little better INR 1.6 maintained on Lovenox Focusing on safety awareness He is stand-by assist but has difficulty with cognition Discharge plan will be discussed with family Hemoccult + stools Declined endoscopy by Dr Allen consultation 05/14/20: INR 1.4 Coumadin of 4mg will be increased Lovenox for bridge Hemoccult pending Doing pretty well 05/13/20: Hgb 7.9 INR 1.5 will increase Coumadin to 4mg and maintain on Lovenox bridge Bowels moving very well Hemoccult will be ordered 05/12/20: BM yesterday Doing well Labs due tomorrow IV Venofer tolerated 05/11/20: More lucid today Much improved since admit In good spirits today BM+ 05/10/20: IV iron infusion tolerated and updated him on that status BM yesterday Needs 24/7 care so will need to talk to family about disposition Pain with PT right hip replacement Patient settling in well Dementia noted and SLUMS was [address] testing increased from 9 [place] [facility] Delirium likely a component but baseline dementia is confirmed Impulsive and tried to get OOB last night Bed alarm in place INR 3.4 so holding Coumadin again tonight Iron level noted so will start Venofer due to severe anemia Checking TSH and B12 also Conferred with RN Reviewed therapy notes Checked meds and labs Review of Systems General: Fatigue, Malaise Musculoskeletal: leg pain Neurological: Weakness, Confusion Objective Exam Vital Signs Vital Signs Date Time Temp Pulse Resp B/P (MAP) Pulse Ox O2 Delivery O2 Flow Rate FiO2 05/15/20 18:16 36.4 67 18 157/71 (99) 98 Room Air Capillary Refill : Less Than 3 SecondsLess Than 3 Seconds General Appearance: No Apparent Distress, WD/WN, Chronically ill HEENT: PERRL/EOMI, Normal ENT Inspection, Pharynx Normal Neck: Full Range of Motion, Normal Inspection, Non Tender, Supple, Carotid Bruit Respiratory: Chest Non Tender, Lungs Clear, Normal Breath Sounds, No Accessory Muscle Use, No Respiratory Distress Cardiovascular: Regular Rate, Rhythm, No Edema, No Gallop, No JVD, No Murmur, Normal Peripheral Pulses Gastrointestinal: Normal Bowel Sounds, No Organomegaly, No Pulsatile Mass, Non Tender, Soft Back: Normal Inspection, No CVA Tenderness, No Vertebral Tenderness Extremity: Normal Capillary Refill, Normal Inspection, Normal Range of Motion, Non Tender, No Calf Tenderness, No Pedal Edema Neurologic/Psychiatric: Alert, Oriented x3, No Motor/Sensory Deficits, Normal Mood/Affect, tile classifier II-XII Norm as Tested, Abnormal Gait, Motor Weakness (right leg due to pain), Other (poor recall) Skin: Normal Color, Warm/Dry Lymphatic: No Adenopathy Results/Procedures Lab Patient resulted labs reviewed. FIM Transfers Therapy Code Descriptions/Definitions Functional [place] Measure: 0=Not Assessed/NA 4=Minimal Assistance 1=Total Assistance 5=Supervision or Setup 2=Maximal Assistance 6=Modified [place] 3=Moderate Assistance 7=Complete IndependenceSCALE: Activities may be completed with or without assistive devices. 7-Zngvmvnxjd-tzfbtss completes the activity by him/herself with no assistance from a helper. 5-Set-up or Clean-up Assistance-helper sets up or cleans up; patient completes activity. [place] assists only prior to or following the activity. 4-Supervision or Touching Assistance-helper provides verbal cues and/or touching/steadying and/or contact guard assistance as patient completes activit y. Assistance may be provided throughout the activity or intermittently. 3-Partial/Moderate Assistance-helper does LESS THAN HALF the effort. [place] lifts, holds or supports trunk or limbs, but provides less than half the effort. 2-Substantial/Maximal Assistance-helper does MORE THAN HALF the effort. [place] lifts or holds trunk or limbs and provides more than half the effort. 2-Fpccjddjn-ruhppx does ALL the effort. Patient does none of the effort to complete the activity. Or, the assistance of 2 or more helpers is required for the patient to complete the activity. If activity was not attempted, code reason: 7-Patient Refused. 9-Not Applicable-not attempted and the patient did not perform the activity before the current illness, exacerbation or injury. 10-Not Attempted due to Environmental Limitations-(lack of equipment, weather restraints, etc.). 88-Not Attempted due to Medical Conditions or Safety Concerns. Roll Left to Right (QC): 6 Sit to Lying (QC): 6 Sit to Stand (QC): 5 Chair/Ypk-zy-Esrtx Xfer(QC): 4 Car Transfer (QC): 3 Gait Training Does the Patient Walk?: Yes Distance: 150' Walk 10 feet (QC): 5 Walk 50 ft with 2 Turns(QC): 5 Walk 150 ft (QC): 5 Walking 10ft/uneven surface-QC: 3 Gait Persons Needed: 1 Gait Assistive Device: FWW Wheelchair Training Does the Pt Use a Wheelchair?: Yes Distance: 150'x4 Wheel 50 ft with 2 turns (QC): 4 Wheel 150 ft (QC): 4 Type of Wheelchair: Manual Stair Training 1 Step (curb) (QC): 88 4 Steps (QC): 88 12 Steps (QC): 88 Balance Picking up an Object (QC): 88 ADL-Treatment Eating (QC): 6 (Pt indicates he had no difficulty with eating breakfast.) Oral Hygiene (QC): 4 (CGA) Shower/Bathe Self (QC): 4 (SBA, pt completed sponge bath seated at recliner, able to wash/dry all parts. SBA in stand at W as pt completed pericare and washed buttocks.) Upper Body Dressing (QC): 6 (independent, pt able to doff/don thread pulling machine attendant shirt.) Lower Body Dressing (QC): 4 (moderate verbal cues to use AE in order to adhere to hip precations. Pt able to doff/edil brief and pants.) On/Off Footwear (QC): 3 (Pt able to doff socks using asic verification engineer. Min A using sock aide to don socks, with moderate verbal cues.) Toileting Hygiene (QC): 3 (Mod A with clothing management, Pt completed toileting seated on [facility] over toilet) Toilet Transfer (QC): 3 (Mod A toilet transfer, Pt transferred from w/c to/from [facility] over toilet) Assessment/Plan Assessment and Plan Assess & Plan/Chief Complaint Assessment: Debility Falls Right total hip replacement 04/17/20 AF Coumadin treatment SLUMS 9 HTN Anemia Plan: Monitor BP Monitor INR IRF protocol 05/09/20: Venofer for low iron and anemia Check B12 and TSH due to dementia Supportive care BM regimen 05/10/20: IV iron infusion Monitor for falls and impulsiveness 05/11/20: Improved status More lucid IV iron infusions 05/12/20: Monitor BP IV iron infusions BM regimen 05/13/20: Monitor Hemoglobin Iron infusions Increase Coumadin Check stools for blood 05/14/20: Monitor INR Maintain Lovenox Monitor closely 05/15/20: Discuss dispo Lovenox bridge Monitor INR Declines endoscopy Check labs in am (1) Status post right hip replacement (2) Atrial fibrillation (3) On warfarin therapy (4) Falls frequently (5) Cognitive deficits (6) Hypertension (7) Anemia (8) Dehydration ELAINE CASTRO DO May 15, 2020 06:22
[2020-05-15 08:00] VITALS: BP 146/66
--- NOTE | 2020-05-15 08:23 | Occupational Ther Daily Note ---
OT Current Status-Daily Note Subjective Pt seated in recliner, agreeable to OT tx. Pt reports 1/10 pain in his R hip. ADL-Treatment Therapy Code Descriptions/Definitions Functional [place] Measure: 0=Not Assessed/NA 4=Minimal Assistance 1=Total Assistance 5=Supervision or Setup 2=Maximal Assistance 6=Modified [place] 3=Moderate Assistance 7=Complete IndependenceSCALE: Activities may be completed with or without assistive devices. 4-Lbdarekhdt-rgyizwc completes the activity by him/herself with no assistance from a helper. 5-Set-up or Clean-up Assistance-helper sets up or cleans up; patient completes activity. [place] assists only prior to or following the activity. 4-Supervision or Touching Assistance-helper provides verbal cues and/or touching/steadying and/or contact guard assistance as patient completes activity. Assistance may be provided throughout the activity or intermittently. 3-Partial/Moderate Assistance-helper does LESS THAN HALF the effort. [place] lifts, holds or supports trunk or limbs, but provides less than half the effort. 2-Substantial/Maximal Assistance-helper does MORE THAN HALF the effort. [place] lifts or holds trunk or limbs and provides more than half the effort. 0-Wtgknlzoi-jdcdqf does ALL the effort. Patient does none of the effort to complete the activity. Or, the assistance of 2 or more helpers is required for the patient to complete the activity. If activity was not attempted, code reason: 7-Patient Refused. 9-Not Applicable-not attempted and the patient did not perform the activity before the current illness, exacerbation or injury. 10-Not Attempted due to Environmental Limitations-(lack of equipment, weather restraints, etc.). 88-Not Attempted due to Medical Conditions or Safety Concerns. Eating (QC): 6 (Pt indicates he was able to eat breakfast without difficulty.) Other Treatment Pt seated in recliner, agreeable to OT tx. Pt sitting in recliner with legs crossed, OT asked pt what was wrong with his feet, pt unable to identify problem. OT educated pt on his hip precautions including not crossing his legs, pt uncrossed legs. Pt able to recall 3/3 hip precautions directly after he uncrossed his legs. Pt then asked to state all 3 again, and pt only able to recall 2/3 forgetting the precaution about crossing his legs. Pt stood from recliner, used FWW to ambulate into therapy gym with CGA. In order to increase BUE strength and functional endurance, pt completed x20 mins arm bike, min resistance. Pt took rest breaks as needed, with bursts of fast pace with cues to slow down. Pt then completed fine motor task in order to increase fine motor strength/coordination and BUE strength and functional endurance. Pt placed x80 pegs into foam pegboard, with 2lb wrist cuff on each wrist. Pt indicates slight difficulty with task due to neuropathy in his hands, but pt able to complete with increased time. Pt states he thinks this task is good for his fingers. Pt then used FWW to return to his room, [facility], with 1 seated rest break at detention point. Pt returned to recliner. Post OT tx, pt seated in recliner, call light in reach and all needs met. Education OT Patient Education: Correct positioning, Energy conservation, Exercise program, Modified ADL techniques, Progress toward Goal/Update tx plan, Purpose of tx/functional activities, Reviewed precautions, Rehab process, Safety issues, Transfer techniques Teaching Recipient: Patient Teaching Methods: Discussion Response to Teaching: Verbalize Understanding OT Fci Goals Corrugator Goals Time Frame: May 31, 2020 Eating (QC): 6 Oral Hygiene (QC): 6 Toileting Hygiene (QC): 6 Shower/Bathe Self (QC): 6 Upper Body Dressing (QC): 6 Lower Body Dressing (QC): 6 On/Off Footwear (QC): 6 Additional Goals: 1-Demonstrate ADL Tasks, 2-Verbalize Understanding, 3- ImproveStrength/[place]uela 1=Demonstrate adherence to instructed precautions during ADL tasks. 2=Patient will verbalize/demonstrate understanding of assistive devices/modifi cations for ADL. 3=Patient will improve strength/tolerance for activity to enable patient to perform ADL's. OT Education/Plan Problem List/Assessment Assessment: Decreased Activ Tolerance, Decreased UE Strength, Impaired Funct Balance, Impaired I ADL's, Impaired Self-Care Skills Discharge Recommendations Plan/Recommendations: Continue POC Treatment Plan/Plan of Care Patient would benefit from OT for education, treatment and training to promote independence in ADL's, mobility, safety and/or upper extremity function for ADL's. Plan of Care: ADL Retraining, Functional Mobility, Group Exercise/Act as Ind, UE Funct Exercise/Act Treatment Duration: May 31, 2020 Frequency: At least 5 of 7 days/Wk (IRF) Estimated Hrs Per Day: 1.5 hours per day Agreement: Yes Rehab Potential: Fair Time/GCodes Start Time: 08:00 Stop Time: 09:15 Total Time Billed (hr/min): 75 Billed Treatment Time 1, EX (20'), FA 4 (55') LEILANI CARSON OT May 15, 2020 08:23
[2020-05-15] MEDS: LOSARTAN 50 MG (COZAAR) TAB PO SCH (09:22)
[2020-05-15] MEDS: polyethylene glycoL POWDER 17 GM (MIRALAX) PACK PO SCH ×2 (09:22→21:13)
[2020-05-15] MEDS: CARVEDILOL 12.5 MG (COREG) TABLET PO SCH ×2 (09:22→21:12)
[2020-05-15] MEDS: SENNA W/DOCUSATE (SENOKOT S) TABLET PO SCH ×2 (09:22→21:12)
[2020-05-15] MEDS: ISOSORBIDE MONONITRATE 30 MG (IMDUR) TAB PO SCH (09:22)
[2020-05-15] MEDS: ENOXAPARIN 40 MG/0.4 ML (LOVENOX) SYR SC SCH (09:26)
--- NOTE | 2020-05-15 10:12 | Speech Therapy Daily Note ---
Speech Daily Progress Note Subjective Date Seen by Provider: May 15, 2020 Time Seen by Provider: 00:30 Patient was resting in his recliner following his other therapies when I entered his room. Objective Patient completed a series of safety awareness scenarios presented verbally with 90% accuracy. Recall of information at 85% after 10 minutes. Assessment Assessment Current Status: Good Progress Treatment Plan Continue Plan of Care Speech Short Term Goals Short Term Goals Short Term Goals 1) Patient will complete memory tasks related to his daily needs at 80% or greater with minimal cues. 2) Patient will complete safety awareness tasks related to his daily needs at 80% or greater with minimal cues. 3) Patient will complete problem solving tasks related to his daily needs at 80% or greater with minimal cues. 4) Patient will attend to task at 80% or greater for improving level of function. Speech Correction Goals Correction Goals Patient will improve cognitive-communication abilities in order to complete daily tasks with minimal assist. Speech-Plan Patient/Family Goals Patient/Family Goals: Patient plans on returning to his home where he lives with his . Treatment Plan Speech Therapy Treatment Plan: Continue Plan of Care Treatment Duration: May 17, 2020 Frequency: 4 times per week (Patient will receive skilled ST 4-5x per week) Estimated Hrs Per Day: .5 hour per day Rehab Potential: Fair Barriers to Learning: Patient's health decline, decreased memory, age Pt/Family Agrees to Plan: Yes Safety Risks/Education Teaching Recipient: Patient Teaching Methods: Demonstration, Discussion Response to Teaching: Verbalize Understanding, Return Demonstration Education Topics Provided: Continued safety while on the ARU and upon his discharge Time Speech Therapy Time In: 09:30 Speech Therapy Time Out: 10:00 Total Billed Time: 30 Billed Treatment Time 1MILO [address] ST May 15, 2020 10:12
--- NOTE | 2020-05-15 12:08 | Physical Therapy Daily Note ---
PT Daily Note-Current Subjective Pt sitting in recliner upon arrival. Pt agrees to PT but reports tired today. Pain Location: No Pain Reported Mental Status Patient Orientation: Person, Confused, Place Transfers SCALE: Activities may be completed with or without assistive devices. 0-Ycfbzzvber-rlckttk completes the activity by him/herself with no assistance fr om a helper. 5-Set-up or Clean-up Assistance-helper sets up or cleans up; patient completes activity. [place] assists only prior to or following the activity. 4-Supervision or Touching Assistance-helper provides verbal cues and/or touching/steadying and/or contact guard assistance as patient completes activity. Assistance may be provided throughout the activity or intermittently. 3-Partial/Moderate Assistance-helper does LESS THAN HALF the effort. [place] lifts, holds or supports trunk or limbs, but provides less than half the effort. 2-Substantial/Maximal Assistance-helper does MORE THAN HALF the effort. [place] lifts or holds trunk or limbs and provides more than half the effort. 8-Vxsiecvbz-bthuql does ALL the effort. Patient does none of the effort to complete the activity. Or, the assistance of 2 or more helpers is required for the patient to complete the activity. If activity was not attempted, code reason: 7-Patient Refused. 9-Not Applicable-not attempted and the patient did not perform the activity before the current illness, exacerbation or injury. 10-Not Attempted due to Environmental Limitations-(lack of equipment, weather restraints, etc.). 88-Not Attempted due to Medical Conditions or Safety Concerns. Sit to Stand (QC): 5 Weight Bearing Weight Bearing/Tolerated Full Weight Bearing Gait Training Does the Patient Walk?: Yes Distance: 150' Walk 10 feet (QC): 5 Walk 50 ft with 2 Turns(QC): 5 Walk 150 ft (QC): 5 Gait Persons Needed: 1 Gait Assistive Device: FWW VC for safety, standing tall and staying closer to FWW. Pt WB through UE more than LE, encouraged to WB through LE. Wheelchair Training Does the Pt Use a Wheelchair?: Yes Wheel 50 ft with 2 turns (QC): 5 Wheel 150 ft (QC): 5 Type of Wheelchair: Manual Stair Training Stair Training: Handrails/: 2 handrails #of Steps: 1 1 Step (curb) (QC): 1 Pt attempts 1 step and R LE melts and TECHNOLOGY ANALYST assists pt with standing upright. Exercises NuStep Minutes: 15 NuStep Workload: 6 Treatments TF to standing and amb in hallway. After RB, pt attempts steps (see above). Pt takes RB to recover. Pt attempts toe tapping in //bars to observe pt's strength. Pt completes Seated Ex then attempts to amb. back to room. TECHNOLOGY ANALYST obse rves continued weakness on R LE so WCH is propelled to room instead. Pt TF to recliner with all needs met, call light in hand. Assessment Current Status: Fair Progress Pt demonstrates fatigue quickly as well as lack of social awareness for safety. PT Short Term Goals Short Term Goals Time Frame: May 15, 2020 Roll Left & Right: 6 Sit to lyin Lying to sitting on side of be: 4 Sit to stand: 4 Chair/dag-sc-oicla transfer: 4 Walk 10 feet: 4 Walk 50 feet with two turns: 4 1 step (curb): 3 PT Penitentiary Goals Penitentiary Goals PT Personnel Monitor Goals Time Frame: May 29, 2020 Roll Left & Right (QC): 6 Sit to Lying (QC): 6 Lying-Sitting on Side/Bed(QC): 6 Sit to Stand (QC): 6 Chair/Woa-rl-Wssyf Xfer(QC): 6 Toilet Transfer (QC): 6 Car Transfer (QC): 6 Does the Patient Walk: Yes Walk 10 feet (QC): 4 Walk 50ft with 2 Turns (QC): 4 Walk 150 ft (QC): 4 Walking 10ft on Uneven Surface: 4 1 Step (curb) (QC): 4 4 Steps (QC): 4 12 Steps (QC): 88 Picking up an Object (QC): 4 Wheel 50 feet with 2 turns (QC: 6 Type: Manual Wheel 150 feet: 6 Type: Manual PT Plan Problem List Problem List: Activity Tolerance, Functional Strength, Safety, Gait Treatment/Plan Treatment Plan: Continue Plan of Care Treatment Plan: Bed Mobility, Education, Functional Activity Manuela, Functional Strength, Group Therapy, Gait, Safety, Therapeutic Exercise, Transfers Treatment Duration: May 22, 2020 Frequency: At least 5 of 7 days/Wk (IRF) Estimated Hrs Per Day: 1.5 hours per day Patient and/or Family Agrees t: Yes Safety Risks/Education Patient Education: Gait Training, Steps, Correct Positioning, Safety Issues Teaching Recipient: Patient Teaching Methods: Discussion Response to Teaching: Reinforcement Needed Time/GCodes Time In: 1000 Time Out: 1115 Total Billed Treatment Time: 75 Total Billed Treatment 1, GT x2 (25m), EX x2 (30m) & FA (20m) KJ BARGER TECHNOLOGY ANALYST May 15, 2020 12:07
--- NOTE | 2020-05-15 13:28 | NUR ---
CM/SS PATIENT CARE CONFERENCE [employer] Sales Associate contacted son Shreyas Wright to review Summary, he was not available to complete a full conversation. We touched on the topic of discharge to an alternate environment rather than home with his spouse as before. Shreyas indicated agreement regarding the concern about both his parents having cognition impairment; patient consistently does not recall hip precautions and/or does not choose to follow hip precautions. Patient would not be able to care for self adequately and certainly not supervise or resume care of his spouse. Followup with Shreyas tomorrow.
[2020-05-15] MEDS ORDERED: MAGNESIUM CITRATE 300 ML BTL PO NR (15:36)
--- NOTE | 2020-05-15 16:26 | CONSULTATION REPORT ---
DATE OF SERVICE: 05/15/2020 ADMITTING PHYSICIAN: Dr. Millan. HISTORY OF PRESENT ILLNESS: The patient is an 89-year-old male, who was initially seen at [facility] after he underwent a total hip arthroplasty on 04/17/2020. He has had multiple falls in the past. After he was surgically cleared with a discharge, he was discharged home; however, became dehydrated. Due to his lack of ambulation status and inability to proceed with the activities of daily living, it was decided to admit the patient to inpatient rehabilitation. During this admission, he was found to be anemic and underwent a Hemoccult test, which was positive. He is on anticoagulation and is therapeutic on Coumadin for history of atrial fibrillation as well as severe coronary artery disease. On this admission, he has also been on Lovenox due to his high risk of deep vein thrombosis. He does report that he has had some issues with the reflux in the past. It is unknown if he has had a previous colonoscopy. PAST MEDICAL HISTORY: Coronary artery disease and cardiomyopathy with an ejection fraction of 30%. PAST MEDICAL HISTORY: Hypertension, depression, neuropathy and atrial fibrillation. PAST SURGICAL HISTORY: Right total hip arthroplasty and pacemaker implantation. ALLERGIES: LISINOPRIL. MEDICATIONS: Carvedilol, isosorbide mononitrate, losartan, Coumadin and hydrocodone. SOCIAL HISTORY: Previous smoker, quit in 1968. Negative alcohol. FAMILY HISTORY: Noncontributory. REVIEW OF SYSTEMS: This is an elderly male, who is slightly confused; however, does answer a majority of questions appropriately. He is not experiencing any shortness of breath or difficulty breathing. No chest pain, palpitations, diaphoresis. History of gastroesophageal reflux disease. No current nausea nor vomiting as well as no hematemesis and no coffee ground emesis. History of constipation. No known red blood per rectum nor any dark tarry stools. No fever or chills with some weight loss since his recent surgery. All other review of systems negative. PHYSICAL EXAMINATION: VITAL SIGNS: Temperature 37.0, blood pressure 137/64, pulse 66, respirations 19 and pulse ox 97% on room air. CHEST: Few scattered rales bilaterally. HEART: Regular and no murmurs. EXTREMITIES: No lower extremity edema, negative Homans sign. HEENT: No scleral icterus. NECK: No cervical lymphadenopathy. ABDOMEN: Soft, nontender and nondistended. No hernias. SKIN: Warm and dry. LABORATORY DATA: WBC 5.1, hemoglobin 7.9, hematocrit 24 and platelets 262. BUN 21 and creatinine 1.11. Liver function enzymes are normal. INR is 1.6. ASSESSMENT AND PLAN: An 89-year-old male with the Hemoccult positive stools with history of reflux and unknown colonoscopy history. Due to his past medical history as well as a recent surgery and other medical events, it is unsure if this is an upper or lower GI source and on this admission, we will proceed with an EGD and colonoscopy, especially due to his need for a long-term anticoagulation. Job ID: [id number] DocumentID: [id number] Dictated Date: 05/15/2020 15:46:55 Digital Photo Printer Date: 05/15/2020 16:26:01 Dictated By: JULES DOWNEY MD
--- NOTE | 2020-05-15 17:35 | NUR ---
NEW ORDERS FROM DR. DOWNEY FOR PREP FOR EGD & COLONOSCOPY SCHEDULED FOR Wednesday05/17/20. THIS NURSE INFORMED PT OF STEPS FOR PREPARING FOR PROCEDURE, PT DOESN'T KNOW IF HE WANTS TO MOVE FORWARD WITH PROCEDURE. PT GOT VERY TEARY EYED AND STATED HE WANTED TO TALK WITH FAMILY. PT HAS PERIODS OF CONFUSION BUT ANSWERS SOME QUESTIONS APPROPRIATELY. PT STATED "HE JUST WANTS TO GO HOME AND TAKE A PILL" DR. DOWNEY HERE AND INFORMED OF PTS REQUESTS. WHEN TAKING PT 1800 COUMADIN PT STATED HE WAS QUITTING TAKING ALL PILLS. THIS NURSE INFORMED PT THAT IT WAS HIS COUMADIN AND PT SAID HE WOULD TAKE THAT CAUSE HE HAS TAKEN IT FOR MANY YEARS.
[2020-05-15 18:16] VITALS: BP 157/71
[2020-05-15] MEDS: warFARin 4 MG (COUMADIN) TAB PO SCH (18:48)
--- NOTE | 2020-05-15 19:17 | NUR ---
bedside report received from LUCERO GUTIERREZ, assume care of pt
[2020-05-15 21:09] VITALS: BP 140/64
[2020-05-15] MEDS: HYDROcodone/APAP 5 MG/325 MG (LORTAB) TAB PO PRN (21:12)
--- NOTE | 2020-05-15 21:12 | NUR ---
pt refused meds, advised I have his heart pill Coreg & a pain pill he had requested, agreed to take meds, stating taken Coreg for years, pt took senoskot but refused miralax, c/o rt hip pain level 4/10 on numeric scale
--- NOTE | 2020-05-15 21:55 | NUR ---
resting quietly in bed, pain level 0/10 on CNPI SCALE
[2020-05-16 05:04] VITALS: BP 164/79
[2020-05-16 05:52] LABS: BASOPHILS # (AUTO) 0.1 10^3/uL (0.0-0.1); BASOPHILS % (AUTO) 1 % (0-10); EOSINOPHILS # (AUTO) 0.3 10^3/uL (0.0-0.3); EOSINOPHILS % (AUTO) 6 % (0-10); HEMATOCRIT 25 % (40-54); LYMPHOCYTES # (AUTO) 1.2 10^3/uL (1.0-4.0); LYMPHOCYTES % (AUTO) 22 % (12-44); MEAN CORPUSCULAR HEMOGLOBIN 30 pg (25-34); MEAN CORPUSCULAR HGB CONC 32 g/dL (32-36); MEAN CORPUSCULAR VOLUME 91 fL (80-99); MEAN PLATELET VOLUME 10.2 fL (9.0-12.2); MONOCYTES # (AUTO) 0.6 10^3/uL (0.0-1.0); MONOCYTES % (AUTO) 11 % (0-12); NEUTROPHILS # (AUTO) 3.2 10^3/uL (1.8-7.8); NEUTROPHILS % (AUTO) 60 % (42-75); PLATELET COUNT 220 10^3/uL (130-400); WHITE BLOOD COUNT 5.3 10^3/uL (4.3-11.0)
[2020-05-16 06:22] LABS: ALANINE AMINOTRANSFERASE 46 U/L (0-55); ALBUMIN 3.1 GM/DL (3.2-4.5); ALKALINE PHOSPHATASE 99 U/L (40-136); BILIRUBIN,TOTAL 0.4 MG/DL (0.1-1.0); BUN/CREATININE RATIO 17; CALCIUM 8.3 MG/DL (8.5-10.1); CARBON DIOXIDE 22 MMOL/L (21-32); CHLORIDE 109 MMOL/L (98-107); CREATININE SERUM 1.12 MG/DL (0.60-1.30); GFR ESTIMATED > 60; GLUCOSE 122 MG/DL (70-105); SODIUM 139 MMOL/L (135-145); TOTAL PROTEIN 5.8 GM/DL (6.4-8.2)
[2020-05-16 06:30] LABS: INR 1.8 (0.8-1.4); PROTHROMBIN TIME PATIENT 21.1 SEC (12.2-14.7)
[2020-05-16 08:00] VITALS: BP 140/67
--- NOTE | 2020-05-16 08:29 | Occupational Ther Daily Note ---
OT Current Status-Daily Note Subjective Pt seated in recliner, agreeable to OT tx. Pt initially reports 0/10 pain but then indicates 1/10 pain in R hip ADL-Treatment Therapy Code Descriptions/Definitions Functional [place] Measure: 0=Not Assessed/NA 4=Minimal Assistance 1=Total Assistance 5=Supervision or Setup 2=Maximal Assistance 6=Modified [place] 3=Moderate Assistance 7=Complete IndependenceSCALE: Activities may be completed with or without assistive devices. 3-Lzphvixanx-xqlrrta completes the activity by him/herself with no assistance from a helper. 5-Set-up or Clean-up Assistance-helper sets up or cleans up; patient completes activity. [place] assists only prior to or following the activity. 4-Supervision or Touching Assistance-helper provides verbal cues and/or touching/steadying and/or contact guard assistance as patient completes activity. Assistance may be provided throughout the activity or intermittently. 3-Partial/Moderate Assistance-helper does LESS THAN HALF the effort. [place] lifts, holds or supports trunk or limbs, but provides less than half the effort. 2-Substantial/Maximal Assistance-helper does MORE THAN HALF the effort. [place] lifts or holds trunk or limbs and provides more than half the effort. 8-Vwnqplyth-rgbmko does ALL the effort. Patient does none of the effort to complete the activity. Or, the assistance of 2 or more helpers is required for the patient to complete the activity. If activity was not attempted, code reason: 7-Patient Refused. 9-Not Applicable-not attempted and the patient did not perform the activity before the current illness, exacerbation or injury. 10-Not Attempted due to Environmental Limitations-(lack of equipment, weather restraints, etc.). 88-Not Attempted due to Medical Conditions or Safety Concerns. Other Treatment Pt seated in recliner, agreeable to OT tx. Pt used FWW to transfer from recliner to / with CGA. OT tx with focus on increasing BUE strength and functional endurance with tasks, as well as fine motor strength. Pt completed arm bike, x20 mins, moderate resistance with rest breaks as needed. Pt spontaneously moved arms at fast pace, requiring cues to maintain an even pace. Pt then completed fine motor task with nuts/bolts, with 2lb wrist weights on each wrist. Pt had difficulty holding nut in hand once taken off of bolt, dropping each bolt onto table before picking it up to put nut back onto bolt. Pt took rest breaks as needed with task. Pt then returned to room in w/c, then transferred from w/c to recliner using FWW with CGA. Post OT tx, pt seated in recliner, call light in reach and all needs met, chair alarm on. Education OT Patient Education: Correct positioning, Modified ADL techniques, Progress toward Goal/Update tx plan, Purpose of tx/functional activities, Safety issues, Transfer techniques Teaching Recipient: Patient Teaching Methods: Discussion Response to Teaching: Verbalize Understanding OT Telephonic Case Manager Goals Prison Goals Time Frame: May 31, 2020 Eating (QC): 6 Oral Hygiene (QC): 6 Toileting Hygiene (QC): 6 Shower/Bathe Self (QC): 6 Upper Body Dressing (QC): 6 Lower Body Dressing (QC): 6 On/Off Footwear (QC): 6 Additional Goals: 1-Demonstrate ADL Tasks, 2-Verbalize Understanding, 3- ImproveStrength/Manuela 1=Demonstrate adherence to instructed precautions during ADL tasks. 2=Patient will verbalize/demonstrate understanding of assistive devices/modifications for ADL. 3=Patient will improve strength/tolerance for activity to enable patient to perform ADL's. OT Education/Plan Problem List/Assessment Assessment: Decreased Activ Tolerance, Decreased UE Strength, Impaired Funct Balance, Impaired I ADL's, Impaired Self-Care Skills Discharge Recommendations Plan/Recommendations: Continue POC Treatment Plan/Plan of Care Patient would benefit from OT for education, treatment and training to promote independence in ADL's, mobility, safety and/or upper extremity function for ADL's. Plan of Care: ADL Retraining, Functional Mobility, Group Exercise/Act as Ind, UE Funct Exercise/Act Treatment Duration: May 31, 2020 Frequency: At least 5 of 7 days/Wk (IRF) Estimated Hrs Per Day: 1.5 hours per day Agreement: Yes Rehab Potential: Fair Time/GCodes Start Time: 08:00 Stop Time: 09:15 Total Time Billed (hr/min): 75 Billed Treatment Time 1, EX (20'), FA 4 (55') LEILANI CARSON OT May 16, 2020 08:29
[2020-05-16] MEDS: CARVEDILOL 12.5 MG (COREG) TABLET PO SCH ×2 (08:44→20:43)
[2020-05-16] MEDS: LOSARTAN 50 MG (COZAAR) TAB PO SCH (08:44)
[2020-05-16] MEDS: polyethylene glycoL POWDER 17 GM (MIRALAX) PACK PO SCH ×2 (08:45→21:08)
[2020-05-16] MEDS: SENNA W/DOCUSATE (SENOKOT S) TABLET PO SCH ×2 (08:45→21:08)
[2020-05-16] MEDS: HYDROcodone/APAP 5 MG/325 MG (LORTAB) TAB PO PRN ×2 (08:45→15:16)
--- NOTE | 2020-05-16 09:00 | NUR ---
DR. DOWNEY NOTIFIED OF ABOVE.
--- NOTE | 2020-05-16 09:00 | NUR ---
STATES DOES NOT WANT SCOPES DONE TOMORROW. STATES WILL GET FAMILY TOGETHER WHEN HE GOES HOME AND THEY WILL DISCUSS IT THEN AND POSSIBLY HAVE IT DONE OUTPATIENT. ALSO IS GOING TO TALK TO FAMILY ABOUT HIM STOPPING ALL MEDICATIONS WHEN HE GOES HOME. WANTS TO STOP COUMADIN NOW.
[2020-05-16] MEDS: ISOSORBIDE MONONITRATE 30 MG (IMDUR) TAB PO SCH (09:13)
[2020-05-16] MEDS: IRON SUCROSE 200 MG/10 ML (VENOFER) VIAL IV SCH (09:14)
[2020-05-16] MEDS: ENOXAPARIN 40 MG/0.4 ML (LOVENOX) SYR SC SCH (09:28)
[2020-05-16] MEDS ORDERED: MAGNESIUM CITRATE 300 ML BTL PO ONE ×2 (10:00→14:00)
--- NOTE | 2020-05-16 10:18 | Speech Therapy Daily Note ---
Speech Daily Progress Note Subjective Date Seen by Provider: May 16, 2020 Time Seen by Provider: 00:30 Patient was resting in his chair when I entered his room. Objective Patient completed general information questions with 90% with minimal cues. Assessment Assessment Current Status: Fair Progress Treatment Plan Continue Plan of Care Speech Short Term Goals Short Term Goals Short Term Goals 1) Patient will complete memory tasks related to his daily needs at 80% or greater with minimal cues. 2) Patient will complete safety awareness tasks related to his daily needs at 80% or greater with minimal cues. 3) Patient will complete problem solving tasks related to his daily needs at 80% or greater with minimal cues. 4) Patient will attend to task at 80% or greater for improving level of function. Speech [facility] Goals Rubber Flap Tuber Machine Operator Goals Patient will improve cognitive-communication abilities in order to complete daily tasks with minimal assist. Speech-Plan Patient/Family Goals Patient/Family Goals: Patient plans on returning to his home where he lives with his . Treatment Plan Speech Therapy Treatment Plan: Continue Plan of Care Treatment Duration: May 17, 2020 Frequency: 4 times per week (Patient will receive skilled ST 4-5x per week) Estimated Hrs Per Day: .5 hour per day Rehab Potential: Fair Barriers to Learning: Patient's recent health decline and age Pt/Family Agrees to Plan: Yes Safety Risks/Education Teaching Recipient: Patient Teaching Methods: Demonstration, Discussion Response to Teaching: Verbalize Understanding, Return Demonstration, Reinforcement Needed Education Topics Provided: Safety within his room and upon his return home. Time Speech Therapy Time In: 09:30 Speech Therapy Time Out: 10:00 Total Billed Time: 30 Billed Treatment Time 1, VANI Cardenas May 16, 2020 10:18
--- NOTE | 2020-05-16 11:20 | NUR ---
CM/SS PATIENT CARE CONFERENCE Visited with patient about Summary of team meeting, spoke with son Shreyas Wright by phone with update. Patient desires to return home with his spouse; however, barriers to this discharge are that patient continues to have inconsistent social awareness for safety, does not follow hip precautions (and states he will not when he is home or when therapy is not present), and needs ongoing verbal cues for ambulation techniques. Patient was assessed by surgical consult, recommendation was for EGD and Colonoscopy due to anticipated exterminator termite anticoagulation Rx and current Hemoccult positive. Patient has refused these procedures at this time, son Shreyas fully updated. Patient continues to be his own decision-maker. Shreyas and brothers are in the process of preparing a DPOA and POA Healthcare for their parents to be completed post hospital stay. Additionally, kelly Wright is exploring assisted living facilities in the [facility]. At writers request, they will provide facility name(s) so that referrals can be sent for review. Looper Fixer also informed them that the facility would likely want to meet patient's spouse Ary since they will be applying for both to enter this environment. Plan: Refer to [facility] as soon as family provide name(s). Shreyas understands that target discharge is Thursday, May 21, 2020. He [place] the [place] but that his brother Wale would be available to pick patient up. If patient is denied admission to [facility], Shreyas understands the next step would be a community detention facility.
--- NOTE | 2020-05-16 11:36 | PM&R Progress Note ---
Subjective HPI/CC On Admission Date Seen by Provider: May 16, 2020 Time Seen by Provider: 11:45 Subjective/Events-last exam 05/16/20: Pt refusing to take Coumadin anymore Lovenox maintained in the mean time Hydrocodone helps with his pain Overall very difficult to evaluate things because his anemia is likely from chronic GI blood loss but he refuses scopes 05/15/20: Pt doing a little better INR 1.6 maintained on Lovenox Focusing on safety awareness He is stand-by assist but has difficulty with cognition Discharge plan will be discussed with family Hemoccult + stools Declined endoscopy by Dr Allen consultation 05/14/20: INR 1.4 Coumadin of 4mg will be increased Lovenox for bridge Hemoccult pending Doing pretty well 05/13/20: Hgb 7.9 INR 1.5 will increase Coumadin to 4mg and maintain on Lovenox bridge Bowels moving very well Hemoccult will be ordered 05/12/20: BM yesterday Doing well Labs due tomorrow IV Venofer tolerated 05/11/20: More lucid today Much improved since admit In good spirits today BM+ 05/10/20: IV iron infusion tolerated and updated him on that status BM yesterday Needs 24/7 care so will need to talk to family about disposition Pain with PT right hip replacement Patient settling in well Dementia noted and SLUMS was [address] testing increased from 9 when it was done at [facility] Delirium likely a component but baseline dementia is confirmed Impulsive and tried to get OOB last night Bed alarm in place INR 3.4 so holding Coumadin again tonight Iron level noted so will start Venofer due to severe anemia Checking TSH and B12 also Conferred with RN Reviewed therapy notes Checked meds and labs Review of Systems General: Fatigue Musculoskeletal: leg pain Objective Exam Vital Signs Vital Signs Date Time Temp Pulse Resp B/P (MAP) Pulse Ox O2 Delivery O2 Flow Rate FiO2 05/16/20 20:41 132/60 (84) 05/16/20 17:01 36.6 56 18 95 Room Air Capillary Refill : Less Than 3 SecondsLess Than 3 Seconds General Appearance: No Apparent Distress, WD/WN, Chronically ill HEENT: PERRL/EOMI, Normal ENT Inspection, Pharynx Normal Neck: Full Range of Motion, Normal Inspection, Non Tender, Supple, Carotid Bruit Respiratory: Chest Non Tender, Lungs Clear, Normal Breath Sounds, No Accessory Muscle Use, No Respiratory Distress Cardiovascular: Regular Rate, Rhythm, No Edema, No Gallop, No JVD, No Murmur, Normal Peripheral Pulses Gastrointestinal: Normal Bowel Sounds, No Organomegaly, No Pulsatile Mass, Non Tender, Soft Back: Normal Inspection, No CVA Tenderness, No Vertebral Tenderness Extremity: Normal Capillary Refill, Normal Inspection, Normal Range of Motion, Non Tender, No Calf Tenderness, No Pedal Edema Neurologic/Psychiatric: Alert, Oriented x3, No Motor/Sensory Deficits, Normal Mood/Affect, blade operator II-XII Norm as Tested, Abnormal Gait, Motor Weakness (right leg due to pain), Other (poor recall) Skin: Normal Color, Warm/Dry Lymphatic: No Adenopathy Results/Procedures Lab Laboratory Tests 05/16/20 05:25 Patient resulted labs reviewed. FIM Transfers Therapy Code Descriptions/Definitions Functional [place] Measure: 0=Not Assessed/NA 4=Minimal Assistance 1=Total Assistance 5=Supervision or Setup 2=Maximal Assistance 6=Modified [place] 3=Moderate Assistance 7=Complete IndependenceSCALE: Activities may be completed with or without assistive devices. 5-Wfvnlwsuwa-extpkpc completes the activity by him/herself with no assistance from a helper. 5-Set-up or Clean-up Assistance-helper sets up or cleans up; patient completes activity. [place] assists only prior to or following the activity. 4-Supervision or Touching Assistance-helper provides verbal cues and/or touching/steadying and/or contact guard assistance as patient completes activity. Assistance may be provided throughout the activity or intermittently. 3-Partial/Moderate Assistance-helper does LESS THAN HALF the effort. [place] lifts, holds or supports trunk or limbs, but provides less than half the effort. 2-Substantial/Maximal Assistance-helper does MORE THAN HALF the effort. [place] lifts or holds trunk or limbs and provides more than half the effort. 3-Ykofzuynk-uxwdxa does ALL the effort. Patient does none of the effort to complete the activity. Or, the assistance of 2 or more helpers is required for the patient to complete the activity. If activity was not attempted, code reason: 7-Patient Refused. 9-Not Applicable-not attempted and the patient did not perform the activity before the current illness, exacerbation or injury. 10-Not Attempted due to Environmental Limitations-(lack of equipment, weather restraints, etc.). 88-Not Attempted due to Medical Conditions or Safety Concerns. Roll Left to Right (QC): 6 Sit to Lying (QC): 6 Sit to Stand (QC): 5 Chair/Vje-uo-Bjcwp Xfer(QC): 4 Car Transfer (QC): 3 Gait Training Does the Patient Walk?: Yes Distance: 150' Walk 10 feet (QC): 5 Walk 50 ft with 2 Turns(QC): 5 Walk 150 ft (QC): 5 Walking 10ft/uneven surface-QC: 3 Gait Persons Needed: 1 Gait Assistive Device: FWW Wheelchair Training Does the Pt Use a Wheelchair?: Yes Distance: 150'x4 Wheel 50 ft with 2 turns (QC): 5 Wheel 150 ft (QC): 5 Type of Wheelchair: Manual Stair Training Stair Training: Handrails/: 2 handrails #of Steps: 1 1 Step (curb) (QC): 1 4 Steps (QC): 88 12 Steps (QC): 88 Balance Picking up an Object (QC): 88 ADL-Treatment Eating (QC): 6 (Pt indicates he was able to eat breakfast without difficulty.) Oral Hygiene (QC): 4 (CGA) Shower/Bathe Self (QC): 4 (SBA, pt completed sponge bath seated at recliner, able to wash/dry all parts. SBA in stand at [facility] as pt completed pericare and washed buttocks.) Upper Body Dressing (QC): 6 (independent, pt able to doff/don tail puller shirt.) Lower Body Dressing (QC): 4 (moderate verbal cues to use AE in order to adhere to hip precations. Pt able to doff/edil brief and pants.) On/Off Footwear (QC): 3 (Pt able to doff socks using distillery worker general. Min A using sock aide to don socks, with moderate verbal cues.) Toileting Hygiene (QC): 3 (Mod A with clothing management, Pt completed toileting seated on [facility] over toilet) Toilet Transfer (QC): 3 (Mod A toilet transfer, Pt transferred from w/c to/from [facility] over toilet) Assessment/Plan Assessment and Plan Assess & Plan/Chief Complaint Assessment: Debility Falls Right total hip replacement 04/17/20 AF Coumadin treatment SLUMS 9 HTN Anemia Plan: Monitor BP Monitor INR IRF protocol 05/09/20: Venofer for low iron and anemia Check B12 and TSH due to dementia Supportive care BM regimen 05/10/20: IV iron infusion Monitor for falls and impulsiveness 05/11/20: Improved status More lucid IV iron infusions 05/12/20: Monitor BP IV iron infusions BM regimen 05/13/20: Monitor Hemoglobin Iron infusions Increase Coumadin Check stools for blood 05/14/20: Monitor INR Maintain Lovenox Monitor closely 05/15/20: Discuss dispo Lovenox bridge Monitor INR Declines endoscopy Check labs in am 05/16/20: Refusing to take Coumadin Refusing endoscopies Lovenox while inpatient Pain control (1) Status post right hip replacement (2) Atrial fibrillation (3) On warfarin therapy (4) Falls frequently (5) Cognitive deficits (6) Hypertension (7) Anemia (8) Dehydration ELAINE CASTRO DO May 16, 2020 11:36
--- NOTE | 2020-05-16 12:09 | Physical Therapy Daily Note ---
PT Daily Note-Current Subjective Pt sitting in recliner upon arrival, finishing ST. Pt agrees to PT. Pain Location: No Pain Reported Mental Status Patient Orientation: Person, Confused, Place Transfers SCALE: Activities may be completed with or without assistive devices. 1-Ylyubxmziw-nxpepnd completes the activity by him/herself with no assistance from a helper. 5-Set-up or Clean-up Assistance-helper sets up or cleans up; patient completes activity. [place] assists only prior to or following the activity. 4-Supervision or Touching Assistance-helper provides verbal cues and/or touching/steadying and/or contact guard assistance as patient completes activity. Assistance may be provided throughout the activity or intermittently. 3-Partial/Moderate Assistance-helper does LESS THAN HALF the effort. [place] lifts, holds or supports trunk or limbs, but provides less than half the effort. 2-Substantial/Maximal Assistance-helper does MORE THAN HALF the effort. [place] lifts or holds trunk or limbs and provides more than half the effort. 7-Djtoiwnrq-pfhqqf does ALL the effort. Patient does none of the effort to co mplete the activity. Or, the assistance of 2 or more helpers is required for the patient to complete the activity. If activity was not attempted, code reason: 7-Patient Refused. 9-Not Applicable-not attempted and the patient did not perform the activity before the current illness, exacerbation or injury. 10-Not Attempted due to Environmental Limitations-(lack of equipment, weather restraints, etc.). 88-Not Attempted due to Medical Conditions or Safety Concerns. Sit to Stand (QC): 5 Toilet Transfer (QC): 5 Weight Bearing Weight Bearing/Tolerated Full Weight Bearing Gait Training Does the Patient Walk?: Yes Distance: 75', 50', 75' Walk 10 feet (QC): 5 Walk 50 ft with 2 Turns(QC): 5 Gait Persons Needed: 1 Gait Assistive Device: FWW Pt walks with flexed posture and CO PILOT encourages pt to WBAT puting more weight thru LE instead of through UE. Exercises Seated Therapy Exercises: Ankle pumps, Long arc quads, Hip flexion, Kicking activity, Glut set Seated Reps: 15 Treatments Pt TF to standing then uses BR. Pt amb. in hallway, RB as needed. Pt completes Seated EX including seated hamstring stretching. Pt amb in hallway before returning to room to rest in recliner,all needs met, call light in hand. Assessment Current Status: Fair Progress Continues to break hip precautions and does not put thru LE (flexed posture). PT Short Term Goals Short Term Goals Time Frame: May 15, 2020 Roll Left & Right: 6 Sit to lyin Lying to sitting on side of be: 4 Sit to stand: 4 Chair/eot-gb-jpqtp transfer: 4 Walk 10 feet: 4 Walk 50 feet with two turns: 4 1 step (curb): 3 PT Bar And Filler Assembler Goals Mcfp Goals PT Mcfp Goals Time Frame: May 29, 2020 Roll Left & Right (QC): 6 Sit to Lying (QC): 6 Lying-Sitting on Side/Bed(QC): 6 Sit to Stand (QC): 6 Chair/Iho-tl-Winap Xfer(QC): 6 Toilet Transfer (QC): 6 Car Transfer (QC): 6 Does the Patient Walk: Yes Walk 10 feet (QC): 4 Walk 50ft with 2 Turns (QC): 4 Walk 150 ft (QC): 4 Walking 10ft on Uneven Surface: 4 1 Step (curb) (QC): 4 4 Steps (QC): 4 12 Steps (QC): 88 Picking up an Object (QC): 4 Wheel 50 feet with 2 turns (QC: 6 Type: Manual Wheel 150 feet: 6 Type: Manual PT Plan Problem List Problem List: Activity Tolerance, Functional Strength, Safety, Gait Treatment/Plan Treatment Plan: Continue Plan of Care Treatment Plan: Bed Mobility, Education, Functional Activity Manuela, Functional Strength, Group Therapy, Gait, Safety, Therapeutic Exercise, Transfers Treatment Duration: May 22, 2020 Frequency: At least 5 of 7 days/Wk (IRF) Estimated Hrs Per Day: 1.5 hours per day Patient and/or Family Agrees t: Yes Safety Risks/Education Patient Education: Gait Training, Reviewed Precautions, Correct Positioning, Safety Issues Teaching Recipient: Patient Teaching Methods: Discussion Response to Teaching: Reinforcement Needed Time/GCodes Time In: 1000 Time Out: 1100 Total Billed Treatment Time: 60 Total Billed Treatment 1, FA (15m), GT x2 (25m) & EX (20m) KJ BARGER CO PILOT May 16, 2020 12:09
--- NOTE | 2020-05-16 14:31 | NUR ---
"RD ASSESSMENT PMHx: CAD; HTN; afib; PT INTERACTION: Pt was awake and pleasant during nutrition follow-up. Pt states he has been eating very well since last assessment. Note avg PO intake 100% x4d, per chart review. Pt states no issues with nausea, vomiting, constipation, or diarrhea since last assessment. Note last BM was 05/13, and pt currently on bowel regimen of senna BID; and miralax BID, per chart review. ABNORMAL NUTRITION-RELATED LAB VALUES LOW: Ca 8.3; Pro 5.8; alb 3.1 HIGH: Cl 109; BUN 19; glu 122 Est. kcal needs: 2000 kcal | 20 kcal/kg Est. Pro needs: 80 g Pro | 0.8 g Pro/kg PES STATEMENT: Given current appetite and PO intake, no nutrition diagnosis at this time (NO-1.1) INTERVENTION: Continue with current diet order of Regular diet. Will continue to follow and reassess as pt needs, intake, and status change. Christina Baker, MS RD LD"
--- NOTE | 2020-05-16 15:21 | Physical Therapy Daily Note ---
PT Daily Note-Current Subjective Pt asleep in recliner upon arrival. Pt asks to use BR then return to recliner to rest. Pain Location: No Pain Reported Mental Status Patient Orientation: Person, Confused, Place Transfers SCALE: Activities may be completed with or without assistive devices. 3-Yodakbvrnu-bmnwhjv completes the activity by him/herself with no assistance from a helper. 5-Set-up or Clean-up Assistance-helper sets up or cleans up; patient completes activity. [place] assists only prior to or following the activity. 4-Supervision or Touching Assistance-helper provides verbal cues and/or touching/steadying and/or contact guard assistance as patient completes activity. Assistance may be provided throughout the activity or intermittently. 3-Partial/Moderate Assistance-helper does LESS THAN HALF the effort. [place] lifts, holds or supports trunk or limbs, but provides less than half the effort. 2-Substantial/Maximal Assistance-helper does MORE THAN HALF the effort. [place] lifts or holds trunk or limbs and provides more than half the effort. 0-Ubpvbrpse-vthqay does ALL the effort. Patient does none of the effort to complete the activity. Or, the assistance of 2 or more helpers is required for the patient to complete the activity. If activity was not attempted, code reason: 7-Patient Refused. 9-Not Applicable-not attempted and the patient did not perform the activity before the current illness, exacerbation or injury. 10-Not Attempted due to Environmental Limitations-(lack of equipment, weather restraints, etc.). 88-Not Attempted due to Medical Conditions or Safety Concerns. Sit to Stand (QC): 5 Toilet Transfer (QC): 5 Weight Bearing Weight Bearing/Tolerated Full Weight Bearing Treatments TF to standing then uses BR. Pt reports will be a little while so CRISIS INTERVENTION SPECIALIST instructs pt on using pull light when finished and not stand on own. Assessment Current Status: Fair Progress Pt continues to not follow Hip Precautions as instructed. PT Short Term Goals Short Term Goals Time Frame: May 15, 2020 Roll Left & Right: 6 Sit to lyin Lying to sitting on side of be: 4 Sit to stand: 4 Chair/iqn-uu-pfiez transfer: 4 Walk 10 feet: 4 Walk 50 feet with two turns: 4 1 step (curb): 3 PT Top Bottom Attaching Machine Operator Goals Prison Goals PT Prison Goals Time Frame: May 29, 2020 Roll Left & Right (QC): 6 Sit to Lying (QC): 6 Lying-Sitting on Side/Bed(QC): 6 Sit to Stand (QC): 6 Chair/Zoo-yr-Dmxjp Xfer(QC): 6 Toilet Transfer (QC): 6 Car Transfer (QC): 6 Does the Patient Walk: Yes Walk 10 feet (QC): 4 Walk 50ft with 2 Turns (QC): 4 Walk 150 ft (QC): 4 Walking 10ft on Uneven Surface: 4 1 Step (curb) (QC): 4 4 Steps (QC): 4 12 Steps (QC): 88 Picking up an Object (QC): 4 Wheel 50 feet with 2 turns (QC: 6 Type: Manual Wheel 150 feet: 6 Type: Manual PT Plan Problem List Problem List: Safety Treatment/Plan Treatment Plan: Continue Plan of Care Treatment Plan: Bed Mobility, Education, Functional Activity Manuela, Functional Strength, Group Therapy, Gait, Safety, Therapeutic Exercise, Transfers Treatment Duration: May 22, 2020 Frequency: At least 5 of 7 days/Wk (IRF) Estimated Hrs Per Day: 1.5 hours per day Patient and/or Family Agrees t: Yes Safety Risks/Education Patient Education: Reviewed Precautions, Safety Issues Time/GCodes Time In: 1400 Time Out: 1415 Total Billed Treatment Time: 15 Total Billed Treatment 1, MAS[place] (15m) KJ BARGER PTA May 16, 2020 15:21
[2020-05-16] MEDS ORDERED: CATHETER FLUSH 10 ML SYR IV PRN (16:00)
[2020-05-16 17:01] VITALS: BP 122/58
[2020-05-16] MEDS: warFARin 4 MG (COUMADIN) TAB PO SCH (17:28)
--- NOTE | 2020-05-16 17:28 | NUR ---
REFUSED COUMADIN. DR. CASTRO AWARE.
[2020-05-16 20:41] VITALS: BP 132/60
[2020-05-16] MEDS: CATHETER FLUSH 10 ML SYR IV SCH (21:08)
[2020-05-17 06:00] VITALS: BP 142/65
[2020-05-17] MEDS: CATHETER FLUSH 10 ML SYR IV SCH ×3 (06:45→20:53)
[2020-05-17] MEDS: ISOSORBIDE MONONITRATE 30 MG (IMDUR) TAB PO SCH (08:29)
[2020-05-17] MEDS: LOSARTAN 50 MG (COZAAR) TAB PO SCH (08:29)
[2020-05-17] MEDS: HYDROcodone/APAP 5 MG/325 MG (LORTAB) TAB PO PRN ×2 (08:30→20:52)
[2020-05-17] MEDS: CARVEDILOL 12.5 MG (COREG) TABLET PO SCH ×2 (08:30→20:52)
[2020-05-17] MEDS: ENOXAPARIN 40 MG/0.4 ML (LOVENOX) SYR SC SCH (08:31)
[2020-05-17] MEDS: SENNA W/DOCUSATE (SENOKOT S) TABLET PO SCH ×2 (08:33→20:52)
[2020-05-17] MEDS: polyethylene glycoL POWDER 17 GM (MIRALAX) PACK PO SCH ×2 (08:33→20:50)
--- NOTE | 2020-05-17 08:44 | Occupational Ther Daily Note ---
OT Current Status-Daily Note Subjective Pt seated in recliner, reluctant to participate in therapy due to increased pain level over night. Pt indicates he has 2/10 pain in his R hip and leg at this time, nurse notified and pain pill provided. Pt required moderate encouragement to participate in OT tx. ADL-Treatment Therapy Code Descriptions/Definitions Functional [place] Measure: 0=Not Assessed/NA 4=Minimal Assistance 1=Total Assistance 5=Supervision or Setup 2=Maximal Assistance 6=Modified [place] 3=Moderate Assistance 7=Complete IndependenceSCALE: Activities may be completed with or without assistive devices. 3-Gfnnonnpuu-qxnkdxj completes the activity by him/herself with no assistance from a helper. 5-Set-up or Clean-up Assistance-helper sets up or cleans up; patient completes activity. [place] assists only prior to or following the activity. 4-Supervision or Touching Assistance-helper provides verbal cues and/or touching/steadying and/or contact guard assistance as patient completes activity. Assistance may be provided throughout the activity or intermittently. 3-Partial/Moderate Assistance-helper does LESS THAN HALF the effort. [place] lifts, holds or supports trunk or limbs, but provides less than half the effort. 2-Substantial/Maximal Assistance-helper does MORE THAN HALF the effort. [place] lifts or holds trunk or limbs and provides more than half the effort. 3-Pgcvocvhh-vutuio does ALL the effort. Patient does none of the effort to complete the activity. Or, the assistance of 2 or more helpers is required for the patient to complete the activity. If activity was not attempted, code reason: 7-Patient Refused. 9-Not Applicable-not attempted and the patient did not perform the activity before the current illness, exacerbation or injury. 10-Not Attempted due to Environmental Limitations-(lack of equipment, weather restraints, etc.). 88-Not Attempted due to Medical Conditions or Safety Concerns. Upper Body Dressing (QC): 5 (set up assistance) Lower Body Dressing (QC): 2 (Pt required assistance threading BLEs into pants using ore digger, CGA during stand to manage pants up.) On/Off Footwear: 2 (Max A donning socks using sock aide. 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 Other Treatment Pt seated in recliner, states he did not sleep well due to pain in his R hip/leg last night. Pt reluctant to participate with therapy stating if his pain got too high he was going to quit and not participate. Pt required moderate encouragement to participate in tx session. His pain at start of session and throughout tx remained at 2/10. Pt's nurse present to give pt pain medicine. Pt sat at recliner, donning socks using sock aide. Pt required max assistance with task due to difficulty donning socks onto sock aide, pt attributes difficulty to having neuropathy in his hands. Pt also required assistance with pulling string of sock aide to get sock onto his foot. Pt first donned L sock, once sock was applied to sock aide again, pt lowered sock aide to the floor and started donning sock onto L foot although he already had a sock on it. OT instructed pt to stop and look for error, pt unable to identify error. Pt only noticed that he was putting the sock onto a foot that already had a sock on it once OT told him. Pt then able to don sock onto R foot, with assistance pulling sock aide out of sock in order to don sock. Pt then donned pants, requiring assistance with edil ing BLEs into pants. Pt stood at FWW, unable to get his balance in standing, sitting back into recliner. Pt stood again at FWW, with instruction to straighten his knees to stand up tall, pt then able to balance himself and pull up his pants with instruction to keep 1 hand on the walker throughout task. Pt then sat back in recliner. Pt able to doff/don drum puller shirt with set up as sistance. With lower body dressing/footwear, pt required cues for sequencing of task and cues for safety to maintain hip precautions. Post OT tx, pt seated in recliner, call light in reach and all needs met, chair alarm on. Education OT Patient Education: Correct positioning, Modified ADL techniques, Progress toward Goal/Update tx plan, Purpose of tx/functional activities, Reviewed precautions, Safety issues, Transfer techniques, Use of adapted equipment Teaching Recipient: Patient Teaching Methods: Discussion Response to Teaching: Verbalize Understanding, Reinforcement Needed OT Automotive Generator Repairer Goals Longterm Goals Time Frame: May 31, 2020 Eating (QC): 6 Oral Hygiene (QC): 6 Toileting Hygiene (QC): 6 Shower/Bathe Self (QC): 6 Upper Body Dressing (QC): 6 Lower Body Dressing (QC): 6 On/Off Footwear (QC): 6 Additional Goals: 1-Demonstrate ADL Tasks, 2-Verbalize Understanding, 3- ImproveStrength/Manuela 1=Demonstrate adherence to instructed precautions during ADL tasks. 2=Patient will verbalize/demonstrate understanding of assistive devices/modifications for ADL. 3=Patient will improve strength/tolerance for activity to enable patient to perform ADL's. OT Education/Plan Problem List/Assessment Assessment: Decreased Activ Tolerance, Decreased UE Strength, Impaired I ADL's, Impaired Self-Care Skills Discharge Recommendations Plan/Recommendations: Continue POC Treatment Plan/Plan of Care Patient would benefit from OT for education, treatment and training to promote independence in ADL's, mobility, safety and/or upper extremity function for ADL's. Plan of Care: ADL Retraining, Functional Mobility, Group Exercise/Act as Ind, UE Funct Exercise/Act Treatment Duration: May 31, 2020 Frequency: At least 5 of 7 days/Wk (IRF) Estimated Hrs Per Day: 1.5 hours per day Agreement: Yes Rehab Potential: Fair Time/GCodes Start Time: 08:00 Stop Time: 09:15 Total Time Billed (hr/min): 75 Billed Treatment Time 1, ADL 5 LEILANI CARSON OT May 17, 2020 08:44
--- NOTE | 2020-05-17 10:02 | PM&R Progress Note ---
Subjective HPI/CC On Admission Date Seen by Provider: May 17, 2020 Time Seen by Provider: 10:00 Subjective/Events-last exam 05/17/20: Refusing to take Coumadin Pain in his hip requiring Hydrocodone No other pain issues Bowels are moving pretty well 05/16/20: Pt refusing to take Coumadin anymore Lovenox maintained in the mean time Hydrocodone helps with his pain Overall very difficult to evaluate things because his anemia is likely from chronic GI blood loss but he refuses scopes 05/15/20: Pt doing a little better INR 1.6 maintained on Lovenox Focusing on safety awareness He is stand-by assist but has difficulty with cognition Discharge plan will be discussed with family Hemoccult + stools Declined endoscopy by Dr Allen consultation 05/14/20: INR 1.4 Coumadin of 4mg will be increased Lovenox for bridge Hemoccult pending Doing pretty well 05/13/20: Hgb 7.9 INR 1.5 will increase Coumadin to 4mg and maintain on Lovenox bridge Bowels moving very well Hemoccult will be ordered 05/12/20: BM yesterday Doing well Labs due tomorrow IV Venofer tolerated 05/11/20: More lucid today Much improved since admit In good spirits today BM+ 05/10/20: IV iron infusion tolerated and updated him on that status BM yesterday Needs 24/7 care so will need to talk to family about disposition Pain with PT right hip replacement Patient settling in well Dementia noted and SLUMS was [address] testing increased from 9 when it was done at [facility] Delirium likely a component but baseline dementia is confirmed Impulsive and tried to get OOB last night Bed alarm in place INR 3.4 so holding Coumadin again tonight Iron level noted so will start Venofer due to severe anemia Checking TSH and B12 also Conferred with RN Reviewed therapy notes Checked meds and labs Review of Systems General: Fatigue, Malaise Musculoskeletal: leg pain Objective Exam Vital Signs Vital Signs Date Time Temp Pulse Resp B/P (MAP) Pulse Ox O2 Delivery O2 Flow Rate FiO2 05/17/20 16:00 36.4 57 16 140/63 (88) 96 Room Air Capillary Refill : Less Than 3 SecondsLess Than 3 Seconds General Appearance: No Apparent Distress, WD/WN, Chronically ill HEENT: PERRL/EOMI, Normal ENT Inspection, Pharynx Normal Neck: Full Range of Motion, Normal Inspection, Non Tender, Supple, Carotid Bruit Respiratory: Chest Non Tender, Lungs Clear, Normal Breath Sounds, No Accessory Muscle Use, No Respiratory Distress Cardiovascular: Regular Rate, Rhythm, No Edema, No Gallop, No JVD, No Murmur, Normal Peripheral Pulses Gastrointestinal: Normal Bowel Sounds, No Organomegaly, No Pulsatile Mass, Non Tender, Soft Back: Normal Inspection, No CVA Tenderness, No Vertebral Tenderness Extremity: Normal Capillary Refill, Normal Inspection, Normal Range of Motion, Non Tender, No Calf Tenderness, No Pedal Edema Neurologic/Psychiatric: Alert, Oriented x3, No Motor/Sensory Deficits, Normal Mood/Affect, sound engineer audio control II-XII Norm as Tested, Abnormal Gait, Motor Weakness (right leg due to pain), Other (poor recall) Skin: Normal Color, Warm/Dry Lymphatic: No Adenopathy Results/Procedures Lab Patient resulted labs reviewed. FIM Transfers Therapy Code Descriptions/Definitions Functional [place] Measure: 0=Not Assessed/NA 4=Minimal Assistance 1=Total Assistance 5=Supervision or Setup 2=Maximal Assistance 6=Modified [place] 3=Moderate Assistance 7=Complete IndependenceSCALE: Activities may be completed with or without assistive devices. 3-Lljxgiechx-aekjntu completes the activity by him/herself with no assistance from a helper. 5-Set-up or Clean-up Assistance-helper sets up or cleans up; patient completes activity. [place] assists only prior to or following the activity. 4-Supervision or Touching Assistance-helper provides verbal cues and/or touching/steadying and/or contact guard assistance as patient completes activity. Assistance may be provided throughout the activity or intermittently. 3-Partial/Moderate Assistance-helper does LESS THAN HALF the effort. [place] lifts, holds or supports trunk or limbs, but provides less than half the effort. 2-Substantial/Maximal Assistance-helper does MORE THAN HALF the effort. [place] lifts or holds trunk or limbs and provides more than half the effort. 2-Daiculzre-oxubfi does ALL the effort. Patient does none of the effort to complete the activity. Or, the assistance of 2 or more helpers is required for the patient to complete the activity. If activity was not attempted, code reason: 7-Patient Refused. 9-Not Applicable-not attempted and the patient did not perform the activity before the current illness, exacerbation or injury. 10-Not Attempted due to Environmental Limitations-(lack of equipment, weather restraints, etc.). 88-Not Attempted due to Medical Conditions or Safety Concerns. Roll Left to Right (QC): 6 Sit to Lying (QC): 6 Sit to Stand (QC): 5 Chair/Ccv-fx-Mwbld Xfer(QC): 4 Car Transfer (QC): 3 Gait Training Does the Patient Walk?: Yes Distance: 75', 50', 75' Walk 10 feet (QC): 5 Walk 50 ft with 2 Turns(QC): 5 Walk 150 ft (QC): 5 Walking 10ft/uneven surface-QC: 3 Gait Persons Needed: 1 Gait Assistive Device: FWW Wheelchair Training Does the Pt Use a Wheelchair?: Yes Distance: 150'x4 Wheel 50 ft with 2 turns (QC): 5 Wheel 150 ft (QC): 5 Type of Wheelchair: Manual Stair Training Stair Training: Handrails/: 2 handrails #of Steps: 1 1 Step (curb) (QC): 1 4 Steps (QC): 88 12 Steps (QC): 88 Balance Picking up an Object (QC): 88 ADL-Treatment Eating (QC): 6 (Pt indicates he was able to eat breakfast without difficulty.) Oral Hygiene (QC): 4 (CGA) Shower/Bathe Self (QC): 4 (SBA, pt completed sponge bath seated at recliner, able to wash/dry all parts. SBA in stand at [facility] as pt completed pericare and washed buttocks.) Upper Body Dressing (QC): 5 (set up assistance) Lower Body Dressing (QC): 2 (Pt required assistance threading BLEs into pants using bale stacker, CGA during stand to manage pants up.) On/Off Footwear (QC): 2 (Max A donning socks using sock aide. 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, assist required to pull sock aide up by string to get sock on.) Toileting Hygiene (QC): 3 (Mod A with clothing management, Pt completed toileting seated on [facility] over toilet) Toilet Transfer (QC): 3 (Mod A toilet transfer, Pt transferred from w/c to/from BSC over toilet) Assessment/Plan Assessment and Plan Assess & Plan/Chief Complaint Assessment: Debility Falls Right total hip replacement 04/17/20 AF Coumadin treatment SLUMS 9 HTN Anemia Plan: Monitor BP Monitor INR IRF protocol 05/09/20: Venofer for low iron and anemia Check B12 and TSH due to dementia Supportive care BM regimen 05/10/20: IV iron infusion Monitor for falls and impulsiveness 05/11/20: Improved status More lucid IV iron infusions 05/12/20: Monitor BP IV iron infusions BM regimen 05/13/20: Monitor Hemoglobin Iron infusions Increase Coumadin Check stools for blood 05/14/20: Monitor INR Maintain Lovenox Monitor closely 05/15/20: Discuss dispo Lovenox bridge Monitor INR Declines endoscopy Check labs in am 05/16/20: Refusing to take Coumadin Refusing endoscopies Lovenox while inpatient Pain control 05/17/20: Pain control COVID test Wednesday for [place] on Wednesday (1) Status post right hip replacement (2) Atrial fibrillation (3) On warfarin therapy (4) Falls frequently (5) Cognitive deficits (6) Hypertension (7) Anemia (8) Dehydration ELAINE CASTRO DO May 17, 2020 10:02
--- NOTE | 2020-05-17 11:09 | Physical Therapy Daily Note ---
PT Daily Note-Current Subjective Pt. states he has had pain earlier today and wants to do what is possible to keep that level of pain from returning but agrees to therapy. Pt. again states he would like to find someone to care for he and his at his home , asks approx what this coasts and states he has "plenty of resources" Pain Location: No Pain Reported Mental Status Patient Orientation: Person, Place Attachments: Other-See Comments (mask out of room) Transfers SCALE: Activities may be completed with or without assistive devices. 4-Mdqlrcyvve-vlfpvoz completes the activity by him/herself with no assistance from a helper. 5-Set-up or Clean-up Assistance-helper sets up or cleans up; patient completes activity. [place] assists only prior to or following the activity. 4-Supervision or Touching Assistance-helper provides verbal cues and/or touching/steadying and/or contact guard assistance as patient completes activity. Assistance may be provided throughout the activity or intermittently. 3-Partial/Moderate Assistance-helper does LESS THAN HALF the effort. [place] lifts, holds or supports trunk or limbs, but provides less than half the effort. 2-Substantial/Maximal Assistance-helper does MORE THAN HALF the effort. [place] lifts or holds trunk or limbs and provides more than half the effort. 5-Npraclxdq-veqxof does ALL the effort. Patient does none of the effort to complete the activity. Or, the assistance of 2 or more helpers is required for the patient to complete the activity. If activity was not attempted, code reason: 7-Patient Refused. 9-Not Applicable-not attempted and the patient did not perform the activity before the current illness, exacerbation or injury. 10-Not Attempted due to Environmental Limitations-(lack of equipment, weather restraints, etc.). 88-Not Attempted due to Medical Conditions or Safety Concerns. Sit to Stand (QC): 5 Chair/Xjl-bj-Mjfth Xfer(QC): 5 reviewed many times safer chair approaches, "take offs and landings" pt. tends to reach for chair before being in safe position to sit Weight Bearing Weight Bearing/Tolerated Full Weight Bearing Gait Training Does the Patient Walk?: Yes Walk 10 feet (QC): 4 Walk 50 ft with 2 Turns(QC): 4 Walk 150 ft (QC): 88 Gait Persons Needed: 1 Gait Assistive Device: FWW flexed at trunk, heavy wt bearing on FWW, c/o fatigue after approx 50' and looks for chair, sitting to rest, 50ft x 6 min to CGA, instruction for safer broader GARCIA Exercises Supine Ex: Ankle pumps, Quad Set, Glut sets, Heel Slides, Short Arc Quads, Scooting, Straight leg raise, Hip abd/add Supine Reps: 20 Seated Therapy Exercises: Ankle pumps, Sit to stand, Long arc quads, Hip abd/add Seated Reps: 12 NuStep Minutes: 8 NuStep Workload: 3 Treatments in recliner with chair alarm after Rx, ulrich at hand, Assessment Current Status: Good Progress pts progress limited by memory issues and inability to stay on task, needs redirected and encouraged PT Short Term Goals Short Term Goals Time Frame: May 15, 2020 Roll Left & Right: 6 Sit to lyin Lying to sitting on side of be: 4 Sit to stand: 4 Chair/ydl-rw-einqp transfer: 4 Walk 10 feet: 4 Walk 50 feet with two turns: 4 1 step (curb): 3 PT Residential Goals Heat And Vent Aircraft Mechanic Goals PT Heat And Vent Aircraft Mechanic Goals Time Frame: May 29, 2020 Roll Left & Right (QC): 6 Sit to Lying (QC): 6 Lying-Sitting on Side/Bed(QC): 6 Sit to Stand (QC): 6 Chair/Udm-ok-Fxzjb Xfer(QC): 6 Toilet Transfer (QC): 6 Car Transfer (QC): 6 Does the Patient Walk: Yes Walk 10 feet (QC): 4 Walk 50ft with 2 Turns (QC): 4 Walk 150 ft (QC): 4 Walking 10ft on Uneven Surface: 4 1 Step (curb) (QC): 4 4 Steps (QC): 4 12 Steps (QC): 88 Picking up an Object (QC): 4 Wheel 50 feet with 2 turns (QC: 6 Type: Manual Wheel 150 feet: 6 Type: Manual PT Plan Treatment/Plan Treatment Plan: Continue Plan of Care Treatment Plan: Bed Mobility, Education, Functional Activity Manuela, Functional Strength, Group Therapy, Gait, Safety, Therapeutic Exercise, Transfers Treatment Duration: May 22, 2020 Frequency: At least 5 of 7 days/Wk (IRF) Estimated Hrs Per Day: 1.5 hours per day Patient and/or Family Agrees t: Yes Safety Risks/Education Patient Education: Gait Training, Transfer Techniques, Correct Positioning, Disease Process, Safety Issues Teaching Recipient: Patient Teaching Methods: Demonstration, Discussion Response to Teaching: Verbalize Understanding, Return Demonstration, Reinforcement Needed Time/GCodes Time In: 1000 Time Out: 1100 Total Billed Treatment Time: 60 Total Billed Treatment 1,EX25m,GT35m LONNY OCONNELL SEAL DELIVERY VEHICLE TEAM TECHNICIAN May 17, 2020 11:09
--- NOTE | 2020-05-17 13:01 | Speech Therapy Daily Note ---
Speech Daily Progress Note Subjective Date Seen by Provider: May 17, 2020 Time Seen by Provider: 00:30 Patient sitting in his chair when I entered his room. Objective Patient completed safety awareness cards related to scenarios he may encounter upon his return home at 80% with 20% cues and/or repetitions. Assessment Assessment Current Status: Good Progress Treatment Plan Continue Plan of Care Speech Short Term Goals Short Term Goals Short Term Goals 1) Patient will complete memory tasks related to his daily needs at 80% or greater with minimal cues. 2) Patient will complete safety awareness tasks related to his daily needs at 80% or greater with minimal cues. 3) Patient will complete problem solving tasks related to his daily needs at 80% or greater with minimal cues. 4) Patient will attend to task at 80% or greater for improving level of function. Speech Group Home Goals Registry Rn Goals Patient will improve cognitive-communication abilities in order to complete daily tasks with minimal assist. Speech-Plan Patient/Family Goals Patient/Family Goals: Patient plans on returning to his home where he lives with his . At this time the patient is scheduled to discharge to his home on Wednesday. Treatment Plan Speech Therapy Treatment Plan: Continue Plan of Care Treatment Duration: May 17, 2020 Frequency: 4 times per week (Patient will receive skilled ST 4-5x per week) Estimated Hrs Per Day: .5 hour per day Rehab Potential: Fair Barriers to Learning: Patient's cognitive status, decreased retention of information, age Pt/Family Agrees to Plan: Yes Safety Risks/Education Teaching Recipient: Patient Teaching Methods: Demonstration, Discussion Response to Teaching: Verbalize Understanding, Return Demonstration Education Topics Provided: Continued safety upon his return home, communication of wants/needs Time Speech Therapy Time In: 09:30 Speech Therapy Time Out: 10:00 Total Billed Time: 30 Billed Treatment Time 1, SLVANI Hernandez May 17, 2020 13:01
--- NOTE | 2020-05-17 13:56 | NUR ---
CM/SS DISCHARGE PLANNING Followup call with son Wale Wright this a.m., he asked travel writer to move forward on a referral with [facility]. Completed with Pham Adler there, team will review. If patient is a candidate, they require a Face Time or virtual interview as well as a negative Covid screen within 3 days of admission. Pham shared that the sons stated they would like to admit patient first and then transition their mother in with him. If [facility] is unable to provide at that level of care, will pursue alternatives with boys. Patient is very clear he does not want to go to a nursing facility; however, this may be a bridge placement until he reaches a higher level of recovery. Division Operations Manager and patient visited for approx 45 minutes about this transition. He was very open about aging and that he did not want to have serious illness and linger without quality. He was emotional several times, reviewing his life and the years before and to present. 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 He talked about each of his sons in detail, that he had the discussion with each that "they would go to college to be a doctor." He said they were all big and tall boys and they would say, "Dad, I am not happy. I don't want to be a doctor," and then they would create their own livelihoods. 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 Garland Wright age 57 is a clinical psychologist who left that professional to be a contractor and build homes in [place], [place]. Wale Wright age 54 manages a car lot in [place], [place]. The patient's greatest hobby is fishing, and he currently [place]. Regarding these proposed moves to [facility], he does not want to give up his fishing hole. He states, "I can see the [place] right out my back window." Patient conversed well in light of his SLUMS scoring. He was not confused, carried on a thoughtful conversation. He covered his history, children, grandchildren, current politics, fishing. Son Wale Wright is primary contact this weekend, Shreyas is out of this area for about a week. Notified Wale of update of referral and conversation with patient. AMBIKA: Brian Nguyen [address] [place] [id number] PH: [phone] FX: [phone] CELL: Pham Adler [phone] Await response from AMBIKA.
--- NOTE | 2020-05-17 14:00 | Physical Therapy Daily Note ---
PT Daily Note-Current Subjective Pt. agrees to Rx and states he wants to "talk to somebody" . This PHARMACY SERVICES REPRESENTATIVE agrees to work and listen Pain Location: No Pain Reported Mental Status Patient Orientation: Person, Place, Situation Attachments: Other-See Comments (mask while out of room) Transfers SCALE: Activities may be completed with or without assistive devices. 0-Zqhmetsfux-qengfji completes the activity by him/herself with no assistance from a helper. 5-Set-up or Clean-up Assistance-helper sets up or cleans up; patient completes activity. [place] assists only prior to or following the activity. 4-Supervision or Touching Assistance-helper provides verbal cues and/or touching/steadying and/or contact guard assistance as patient completes activity. Assistance may be provided throughout the activity or intermittently. 3-Partial/Moderate Assistance-helper does LESS THAN HALF the effort. [place] lifts, holds or supports trunk or limbs, but provides less than half the effort. 2-Substantial/Maximal Assistance-helper does MORE THAN HALF the effort. [place] lifts or holds trunk or limbs and provides more than half the effort. 5-Sdlmcgqbs-kxvclx does ALL the effort. Patient does none of the effort to complete the activity. Or, the assistance of 2 or more helpers is required for the patient to complete the activity. If activity was not attempted, code reason: 7-Patient Refused. 9-Not Applicable-not attempted and the patient did not perform the activity before the current illness, exacerbation or injury. 10-Not Attempted due to Environmental Limitations-(lack of equipment, weather restraints, etc.). 88-Not Attempted due to Medical Conditions or Safety Concerns. Sit to Stand (QC): 4 Car Transfer (QC): 4 pt. needed min assist for car TRF and much instruction for sequence of moves. much work focused on chair approaches and position and making contact with chair Weight Bearing Weight Bearing/Tolerated Full Weight Bearing Gait Training Does the Patient Walk?: Yes Gait Assistive Device: FWW 125ft, 75ft 50 ft CGA to min assist with pt. requesting to sit and he melts a little toward floor stating his legs are giving out, rested before walking again Exercises Seated Therapy Exercises: Ankle pumps, Sit to stand, Long arc quads, Hip flexion Seated Reps: 10 Assessment Current Status: Fair Progress pt. is sidetracked by visiting and needs near constant redirection to task PT Short Term Goals Short Term Goals Time Frame: May 15, 2020 Roll Left & Right: 6 Sit to lyin Lying to sitting on side of be: 4 Sit to stand: 4 Chair/bma-dh-uclqe transfer: 4 Walk 10 feet: 4 Walk 50 feet with two turns: 4 1 step (curb): 3 PT Group Home Goals Group Home Goals PT Robotic Weld Technician Goals Time Frame: May 29, 2020 Roll Left & Right (QC): 6 Sit to Lying (QC): 6 Lying-Sitting on Side/Bed(QC): 6 Sit to Stand (QC): 6 Chair/Yyk-ou-Aynsq Xfer(QC): 6 Toilet Transfer (QC): 6 Car Transfer (QC): 6 Does the Patient Walk: Yes Walk 10 feet (QC): 4 Walk 50ft with 2 Turns (QC): 4 Walk 150 ft (QC): 4 Walking 10ft on Uneven Surface: 4 1 Step (curb) (QC): 4 4 Steps (QC): 4 12 Steps (QC): 88 Picking up an Object (QC): 4 Wheel 50 feet with 2 turns (QC: 6 Type: Manual Wheel 150 feet: 6 Type: Manual PT Plan Treatment/Plan Treatment Plan: Continue Plan of Care Treatment Plan: Bed Mobility, Education, Functional Activity Manuela, Functional Strength, Group Therapy, Gait, Safety, Therapeutic Exercise, Transfers Treatment Duration: May 22, 2020 Frequency: At least 5 of 7 days/Wk (IRF) Estimated Hrs Per Day: 1.5 hours per day Patient and/or Family Agrees t: Yes Safety Risks/Education Patient Education: Gait Training, Transfer Techniques, Correct Positioning, Disease Process, Safety Issues Teaching Recipient: Patient Teaching Methods: Demonstration, Discussion Response to Teaching: Verbalize Understanding, Return Demonstration, Reinforcement Needed Time/GCodes Time In: 1335 Time Out: 1350 Total Billed Treatment Time: 15 Total Billed Treatment 1,FAAddisonm LONNY OCONNELL PTA May 17, 2020 14:00
[2020-05-17 16:00] VITALS: BP 140/63
--- NOTE | 2020-05-17 16:10 | NUR ---
CM/SS VOTING Inquiry was made regarding the upcoming election and whether patient had an alternate plan to vote due to his hospitalization. His target discharge is May 21. His family will assist him with voting since he will be released prior to the overall election.
[2020-05-17] MEDS: warFARin 4 MG (COUMADIN) TAB PO SCH (18:53)
[2020-05-18] MEDS: HYDROcodone/APAP 5 MG/325 MG (LORTAB) TAB PO PRN ×3 (02:18→18:03)
[2020-05-18] MEDS: CATHETER FLUSH 10 ML SYR IV SCH ×3 (05:52→21:26)
[2020-05-18 06:15] VITALS: BP 142/65
--- NOTE | 2020-05-18 06:25 | PM&R Progress Note ---
Subjective HPI/CC On Admission Date Seen by Provider: May 18, 2020 Time Seen by Provider: 12:00 Subjective/Events-last exam 05/18/20: Patient still refusing Coumadin Lovenox maintained Needs scopes but declines AL Wednesday Needs COVID testing Wednesday Tried to get OOB last night no confusion just impulsive 05/17/20: Refusing to take Coumadin Pain in his hip requiring Hydrocodone No other pain issues Bowels are moving pretty well 05/16/20: Pt refusing to take Coumadin anymore Lovenox maintained in the mean time Hydrocodone helps with his pain Overall very difficult to evaluate things because his anemia is likely from chronic GI blood loss but he refuses scopes 05/15/20: Pt doing a little better INR 1.6 maintained on Lovenox Focusing on safety awareness He is stand-by assist but has difficulty with cognition Discharge plan will be discussed with family Hemoccult + stools Declined endoscopy by Dr Allen consultation 05/14/20: INR 1.4 Coumadin of 4mg will be increased Lovenox for bridge Hemoccult pending Doing pretty well 05/13/20: Hgb 7.9 INR 1.5 will increase Coumadin to 4mg and maintain on Lovenox bridge Bowels moving very well Hemoccult will be ordered 05/12/20: BM yesterday Doing well Labs due tomorrow IV Venofer tolerated 05/11/20: More lucid today Much improved since admit In good spirits today BM+ 05/10/20: IV iron infusion tolerated and updated him on that status BM yesterday Needs 24/ care so will need to talk to family about disposition Pain with PT right hip replacement Patient settling in well Dementia noted and SLUMS was [address] testing increased from 9 when it was done at [facility] [place] Delirium likely a component but baseline dementia is confirmed Impulsive and tried to get OOB last night Bed alarm in place INR 3.4 so holding Coumadin again tonight Iron level noted so will start Venofer due to severe anemia Checking TSH and B12 also Conferred with RN Reviewed therapy notes Checked meds and labs Review of Systems Musculoskeletal: leg pain Objective Exam Vital Signs Vital Signs Date Time Temp Pulse Resp B/P (MAP) Pulse Ox O2 Delivery O2 Flow Rate FiO2 05/18/20 16:07 36.4 58 16 123/58 (79) 95 Room Air Capillary Refill : Less Than 3 SecondsLess Than 3 Seconds General Appearance: No Apparent Distress, WD/WN, Chronically ill HEENT: PERRL/EOMI, Normal ENT Inspection, Pharynx Normal Neck: Full Range of Motion, Normal Inspection, Non Tender, Supple, Carotid Bruit Respiratory: Chest Non Tender, Lungs Clear, Normal Breath Sounds, No Accessory Muscle Use, No Respiratory Distress Cardiovascular: Regular Rate, Rhythm, No Edema, No Gallop, No JVD, No Murmur, Normal Peripheral Pulses Gastrointestinal: Normal Bowel Sounds, No Organomegaly, No Pulsatile Mass, Non Tender, Soft Back: Normal Inspection, No CVA Tenderness, No Vertebral Tenderness Extremity: Normal Capillary Refill, Normal Inspection, Normal Range of Motion, Non Tender, No Calf Tenderness, No Pedal Edema Neurologic/Psychiatric: Alert, Oriented x3, No Motor/Sensory Deficits, Normal Mood/Affect, distribution clerk II-XII Norm as Tested, Abnormal Gait, Motor Weakness (right leg due to pain), Other (poor recall) Skin: Normal Color, Warm/Dry Lymphatic: No Adenopathy Results/Procedures Lab Patient resulted labs reviewed. FIM Transfers Therapy Code Descriptions/Definitions Functional [place] Measure: 0=Not Assessed/NA 4=Minimal Assistance 1=Total Assistance 5=Supervision or Setup 2=Maximal Assistance 6=Modified [place] 3=Moderate Assistance 7=Complete IndependenceSCALE: Activities may be completed with or without assistive devices. 5-Avnlvcvnkr-sclogzi completes the activity by him/herself with no assistance from a helper. 5-Set-up or Clean-up Assistance-helper sets up or cleans up; patient completes activity. [place] assists only prior to or following the activity. 4-Supervision or Touching Assistance-helper provides verbal cues and/or touching/steadying and/or contact guard assistance as patient completes activity. Assistance may be provided throughout the activity or intermittently. 3-Partial/Moderate Assistance-helper does LESS THAN HALF the effort. [place] lifts, holds or supports trunk or limbs, but provides less than half the effort. 2-Substantial/Maximal Assistance-helper does MORE THAN HALF the effort. [place] lifts or holds trunk or limbs and provides more than half the effort. 4-Ahwcpnywb-nnzkrv does ALL the effort. Patient does none of the effort to complete the activity. Or, the assistance of 2 or more helpers is required for the patient to complete the activity. If activity was not attempted, code reason: 7-Patient Refused. 9-Not Applicable-not attempted and the patient did not perform the activity before the current illness, exacerbation or injury. 10-Not Attempted due to Environmental Limitations-(lack of equipment, weather restraints, etc.). 88-Not Attempted due to Medical Conditions or Safety Concerns. Roll Left to Right (QC): 6 Sit to Lying (QC): 6 Sit to Stand (QC): 4 Chair/Xja-bf-Eghvz Xfer(QC): 5 Car Transfer (QC): 4 Gait Training Does the Patient Walk?: Yes Distance: 75', 50', 75' Walk 10 feet (QC): 4 Walk 50 ft with 2 Turns(QC): 4 Walk 150 ft (QC): 88 Walking 10ft/uneven surface-QC: 3 Gait Persons Needed: 1 Gait Assistive Device: FWW Wheelchair Training Does the Pt Use a Wheelchair?: Yes Distance: 150'x4 Wheel 50 ft with 2 turns (QC): 5 Wheel 150 ft (QC): 5 Type of Wheelchair: Manual Stair Training Stair Training: Handrails/: 2 handrails #of Steps: 1 1 Step (curb) (QC): 1 4 Steps (QC): 88 12 Steps (QC): 88 Balance Picking up an Object (QC): 88 ADL-Treatment Eating (QC): 6 (Pt indicates he was able to eat breakfast without difficulty.) Oral Hygiene (QC): 4 (CGA) Shower/Bathe Self (QC): 4 (SBA, pt completed sponge bath seated at recliner, able to wash/dry all parts. SBA in stand at [facility] as pt completed pericare and washed buttocks.) Upper Body Dressing (QC): 5 (set up assistance) Lower Body Dressing (QC): 2 (Pt required assistance threading BLEs into pants using coloring room man, CGA during stand to manage pants up.) On/Off Footwear (QC): 2 (Max A donning socks using sock aide. 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, assist required to pull sock aide up by string to get sock on.) Toileting Hygiene (QC): 3 (Mod A with clothing management, Pt completed toileting seated on [facility] over toilet) Toilet Transfer (QC): 3 (Mod A toilet transfer, Pt transferred from w/c to/from [facility] over toilet) Assessment/Plan Assessment and Plan Assess & Plan/Chief Complaint Assessment: Debility Falls Right total hip replacement 04/17/20 AF Coumadin treatment SLUMS 9 HTN Anemia Plan: Monitor BP Monitor INR IRF protocol 05/09/20: Venofer for low iron and anemia Check B12 and TSH due to dementia Supportive care BM regimen 05/10/20: IV iron infusion Monitor for falls and impulsiveness 05/11/20: Improved status More lucid IV iron infusions 05/12/20: Monitor BP IV iron infusions BM regimen 05/13/20: Monitor Hemoglobin Iron infusions Increase Coumadin Check stools for blood 05/14/20: Monitor INR Maintain Lovenox Monitor closely 05/15/20: Discuss dispo Lovenox bridge Monitor INR Declines endoscopy Check labs in am 05/16/20: Refusing to take Coumadin Refusing endoscopies Lovenox while inpatient Pain control 05/17/20: Pain control COVID test Wednesday for AL on Wednesday05/18/20: Labs in am COVID test for Wednesday Monitor for falls (1) Status post right hip replacement (2) Atrial fibrillation (3) On warfarin therapy (4) Falls frequently (5) Cognitive deficits (6) Hypertension (7) Anemia (8) Dehydration ELAINE CASTRO DO May 18, 2020 06:25
--- NOTE | 2020-05-18 09:10 | Physical Therapy Daily Note ---
PT Daily Note-Current Subjective Pt. up in recliner. States he isnt going to do anything today because he just didnt sleep well at all; hoping to nap Transfers SCALE: Activities may be completed with or without assistive devices. 7-Yoevbugexj-mmtsawq completes the activity by him/herself with no assistance from a helper. 5-Set-up or Clean-up Assistance-helper sets up or cleans up; patient completes activity. [place] assists only prior to or following the activity. 4-Supervision or Touching Assistance-helper provides verbal cues and/or touching/steadying and/or contact guard assistance as patient completes activity. Assistance may be provided throughout the activity or intermittently. 3-Partial/Moderate Assistance-helper does LESS THAN HALF the effort. [place] lifts, holds or supports trunk or limbs, but provides less than half the effort. 2-Substantial/Maximal Assistance-helper does MORE THAN HALF the effort. [place] lifts or holds trunk or limbs and provides more than half the effort. 2-Stklnsitu-vnzwyg does ALL the effort. Patient does none of the effort to complete the activity. Or, the assistance of 2 or more helpers is required for the patient to complete the activity. If activity was not attempted, code reason: 7-Patient Refused. 9-Not Applicable-not attempted and the patient did not perform the activity before the current illness, exacerbation or injury. 10-Not Attempted due to Environmental Limitations-(lack of equipment, weather restraints, etc.). 88-Not Attempted due to Medical Conditions or Safety Concerns. Weight Bearing Weight Bearing/Tolerated Full Weight Bearing Assessment Current Status: Refused Treatment PT Short Term Goals Short Term Goals Time Frame: May 15, 2020 Roll Left & Right: 6 Sit to lyin Lying to sitting on side of be: 4 Sit to stand: 4 Chair/rsq-oi-nkyvv transfer: 4 Walk 10 feet: 4 Walk 50 feet with two turns: 4 1 step (curb): 3 PT Fermentation Scientist Goals Alf Goals PT Alf Goals Time Frame: May 29, 2020 Roll Left & Right (QC): 6 Sit to Lying (QC): 6 Lying-Sitting on Side/Bed(QC): 6 Sit to Stand (QC): 6 Chair/Vcx-ws-Ztrdy Xfer(QC): 6 Toilet Transfer (QC): 6 Car Transfer (QC): 6 Does the Patient Walk: Yes Walk 10 feet (QC): 4 Walk 50ft with 2 Turns (QC): 4 Walk 150 ft (QC): 4 Walking 10ft on Uneven Surface: 4 1 Step (curb) (QC): 4 4 Steps (QC): 4 12 Steps (QC): 88 Picking up an Object (QC): 4 Wheel 50 feet with 2 turns (QC: 6 Type: Manual Wheel 150 feet: 6 Type: Manual PT Plan Treatment/Plan Treatment Plan: Continue Plan of Care Treatment Plan: Bed Mobility, Education, Functional Activity Manuela, Functional Strength, Group Therapy, Gait, Safety, Therapeutic Exercise, Transfers Treatment Duration: May 22, 2020 Frequency: At least 5 of 7 days/Wk (IRF) Estimated Hrs Per Day: 1.5 hours per day Patient and/or Family Agrees t: Yes Time/GCodes Time In: 845 Time Out: 845 Total Billed Treatment Time: 0 Total Billed Treatment 1,no Rx, refused LONNY OCONNELL VP LAB May 18, 2020 09:10
[2020-05-18] MEDS: ISOSORBIDE MONONITRATE 30 MG (IMDUR) TAB PO SCH (09:46)
[2020-05-18] MEDS: IRON SUCROSE 200 MG/10 ML (VENOFER) VIAL IV SCH (09:46)
[2020-05-18] MEDS: LOSARTAN 50 MG (COZAAR) TAB PO SCH (09:46)
[2020-05-18] MEDS: ENOXAPARIN 40 MG/0.4 ML (LOVENOX) SYR SC SCH (09:47)
[2020-05-18] MEDS: CARVEDILOL 12.5 MG (COREG) TABLET PO SCH ×2 (09:47→21:26)
[2020-05-18] MEDS: polyethylene glycoL POWDER 17 GM (MIRALAX) PACK PO SCH ×2 (10:50→21:25)
[2020-05-18] MEDS: SENNA W/DOCUSATE (SENOKOT S) TABLET PO SCH ×2 (10:50→21:26)
[2020-05-18 16:07] VITALS: BP 123/58
[2020-05-18] MEDS: warFARin 4 MG (COUMADIN) TAB PO SCH (18:02)
[2020-05-19] MEDS: CATHETER FLUSH 10 ML SYR IV SCH ×3 (05:34→20:10)
[2020-05-19 05:57] LABS: BASOPHILS % (AUTO) 1 % (0-10); EOSINOPHILS # (AUTO) 0.3 10^3/uL (0.0-0.3); EOSINOPHILS % (AUTO) 5 % (0-10); HEMATOCRIT 27 % (40-54); HEMOGLOBIN 8.7 g/dL (13.3-17.7); LYMPHOCYTES % (AUTO) 19 % (12-44); MEAN CORPUSCULAR HEMOGLOBIN 30 pg (25-34); MEAN CORPUSCULAR HGB CONC 32 g/dL (32-36); MEAN CORPUSCULAR VOLUME 93 fL (80-99); MEAN PLATELET VOLUME 10.4 fL (9.0-12.2); MONOCYTES # (AUTO) 0.6 10^3/uL (0.0-1.0); MONOCYTES % (AUTO) 11 % (0-12); NEUTROPHILS # (AUTO) 3.3 10^3/uL (1.8-7.8); NEUTROPHILS % (AUTO) 63 % (42-75); PLATELET COUNT 200 10^3/uL (130-400); WHITE BLOOD COUNT 5.2 10^3/uL (4.3-11.0)
[2020-05-19 06:00] VITALS: BP 154/64
[2020-05-19 06:20] LABS: ALANINE AMINOTRANSFERASE 27 U/L (0-55); ALBUMIN 3.3 GM/DL (3.2-4.5); ALKALINE PHOSPHATASE 105 U/L (40-136); BILIRUBIN,TOTAL 0.4 MG/DL (0.1-1.0); BUN/CREATININE RATIO 19; CALCIUM 8.5 MG/DL (8.5-10.1); CARBON DIOXIDE 22 MMOL/L (21-32); CHLORIDE 109 MMOL/L (98-107); CREATININE SERUM 0.97 MG/DL (0.60-1.30); GFR ESTIMATED > 60; GLUCOSE 118 MG/DL (70-105); POTASSIUM 4.1 MMOL/L (3.6-5.0); SODIUM 141 MMOL/L (135-145); TOTAL PROTEIN 6.2 GM/DL (6.4-8.2)
[2020-05-19] MEDS: polyethylene glycoL POWDER 17 GM (MIRALAX) PACK PO SCH ×2 (09:43→20:40)
[2020-05-19] MEDS: ISOSORBIDE MONONITRATE 30 MG (IMDUR) TAB PO SCH (10:00)
[2020-05-19] MEDS: LOSARTAN 50 MG (COZAAR) TAB PO SCH (10:00)
[2020-05-19] MEDS: CARVEDILOL 12.5 MG (COREG) TABLET PO SCH ×2 (10:01→20:08)
[2020-05-19] MEDS: ENOXAPARIN 40 MG/0.4 ML (LOVENOX) SYR SC SCH (10:01)
[2020-05-19] MEDS: SENNA W/DOCUSATE (SENOKOT S) TABLET PO SCH ×2 (11:01→20:07)
--- NOTE | 2020-05-19 11:45 | PM&R Progress Note ---
Subjective HPI/CC On Admission Date Seen by Provider: May 19, 2020 Time Seen by Provider: 12:00 Subjective/Events-last exam 05/19/20: Did better last night and called RN when he wanted to get up to go to the bath room Venofer infusion completed DC IV now COVID test in morning Hgb 8.9 Talked to him about Eliquis and he is willing to do that so will assure his insurance pays for it prior to DC Needs endoscopy in future 05/18/20: Patient still refusing Coumadin Lovenox maintained Needs scopes but declines AL Wednesday Needs COVID testing Wednesday Tried to get OOB last night no confusion just impulsive 05/17/20: Refusing to take Coumadin Pain in his hip requiring Hydrocodone No other pain issues Bowels are moving pretty well 05/16/20: Pt refusing to take Coumadin anymore Lovenox maintained in the mean time Hydrocodone helps with his pain Overall very difficult to evaluate things because his anemia is likely from chronic GI blood loss but he refuses scopes 05/15/20: Pt doing a little better INR 1.6 maintained on Lovenox Focusing on safety awareness He is stand-by assist but has difficulty with cognition Discharge plan will be discussed with family Hemoccult + stools Declined endoscopy by Dr Allen consultation 05/14/20: INR 1.4 Coumadin of 4mg will be increased Lovenox for bridge Hemoccult pending Doing pretty well 05/13/20: Hgb 7.9 INR 1.5 will increase Coumadin to 4mg and maintain on Lovenox bridge Bowels moving very well Hemoccult will be ordered 05/12/20: BM yesterday Doing well Labs due tomorrow IV Venofer tolerated 05/11/20: More lucid today Much improved since admit In good spirits today BM+ 05/10/20: IV iron infusion tolerated and updated him on that status BM yesterday Needs 24/7 care so will need to talk to family about disposition Pain with PT right hip replacement Patient settling in well Dementia noted and SLUMS was [address] testing increased from 9 when it was done at [facility] [place] Delirium likely a component but baseline dementia is confirmed Impulsive and tried to get OOB last night Bed alarm in place INR 3.4 so holding Coumadin again tonight Iron level noted so will start Venofer due to severe anemia Checking TSH and B12 also Conferred with RN Reviewed therapy notes Checked meds and labs Review of Systems General: Fatigue Musculoskeletal: leg pain Objective Exam Vital Signs Vital Signs Date Time Temp Pulse Resp B/P (MAP) Pulse Ox O2 Delivery O2 Flow Rate FiO2 05/19/20 08:51 Room Air 05/19/20 06:00 36.9 68 20 154/64 (94) 96 Capillary Refill : Less Than 3 SecondsLess Than 3 Seconds General Appearance: No Apparent Distress, WD/WN, Chronically ill HEENT: PERRL/EOMI, Normal ENT Inspection, Pharynx Normal Neck: Full Range of Motion, Normal Inspection, Non Tender, Supple, Carotid Bruit Respiratory: Chest Non Tender, Lungs Clear, Normal Breath Sounds, No Accessory Muscle Use, No Respiratory Distress Cardiovascular: Regular Rate, Rhythm, No Edema, No Gallop, No JVD, No Murmur, Normal Peripheral Pulses, Irregularly Irregular Gastrointestinal: Normal Bowel Sounds, No Organomegaly, No Pulsatile Mass, Non Tender, Soft Back: Normal Inspection, No CVA Tenderness, No Vertebral Tenderness Extremity: Normal Capillary Refill, Normal Inspection, Normal Range of Motion, Non Tender, No Calf Tenderness, No Pedal Edema Neurologic/Psychiatric: Alert, Oriented x3, No Motor/Sensory Deficits, Normal Mood/Affect, mission planner II-XII Norm as Tested, Abnormal Gait, Motor Weakness (right leg due to pain), Other (poor recall) Skin: Normal Color, Warm/Dry Lymphatic: No Adenopathy Results/Procedures Lab Laboratory Tests 05/19/20 05:29 Patient resulted labs reviewed. FIM Transfers Therapy Code Descriptions/Definitions Functional [place] Measure: 0=Not Assessed/NA 4=Minimal Assistance 1=Total Assistance 5=Supervision or Setup 2=Maximal Assistance 6=Modified [place] 3=Moderate Assistance 7=Complete IndependenceSCALE: Activities may be completed with or without assistive devices. 7-Ymcgxmcjdb-yzdzgim completes the activity by him/herself with no assistance from a helper. 5-Set-up or Clean-up Assistance-helper sets up or cleans up; patient completes activity. [place] assists only prior to or following the activity. 4-Supervision or Touching Assistance-helper provides verbal cues and/or touching/steadying and/or contact guard assistance as patient completes activity. Assistance may be provided throughout the activity or intermittently. 3-Partial/Moderate Assistance-helper does LESS THAN HALF the effort. [place] lifts, holds or supports trunk or limbs, but provides less than half the effort. 2-Substantial/Maximal Assistance-helper does MORE THAN HALF the effort. [place] lifts or holds trunk or limbs and provides more than half the effort. 7-Ldvqvgybw-vqqhum does ALL the effort. Patient does none of the effort to complete the activity. Or, the assistance of 2 or more helpers is required for the patient to complete the activity. If activity was not attempted, code reason: 7-Patient Refused. 9-Not Applicable-not attempted and the patient did not perform the activity before the current illness, exacerbation or injury. 10-Not Attempted due to Environmental Limitations-(lack of equipment, weather restraints, etc.). 88-Not Attempted due to Medical Conditions or Safety Concerns. Roll Left to Right (QC): 6 Sit to Lying (QC): 6 Sit to Stand (QC): 4 Chair/Quk-tp-Ijmly Xfer(QC): 5 Car Transfer (QC): 4 Gait Training Does the Patient Walk?: Yes Distance: 75', 50', 75' Walk 10 feet (QC): 4 Walk 50 ft with 2 Turns(QC): 4 Walk 150 ft (QC): 88 Walking 10ft/uneven surface-QC: 3 Gait Persons Needed: 1 Gait Assistive Device: FWW Wheelchair Training Does the Pt Use a Wheelchair?: Yes Distance: 150'x4 Wheel 50 ft with 2 turns (QC): 5 Wheel 150 ft (QC): 5 Type of Wheelchair: Manual Stair Training Stair Training: Handrails/: 2 handrails #of Steps: 1 1 Step (curb) (QC): 1 4 Steps (QC): 88 12 Steps (QC): 88 Balance Picking up an Object (QC): 88 ADL-Treatment Eating (QC): 6 (Pt indicates he was able to eat breakfast without difficulty.) Oral Hygiene (QC): 4 (CGA) Shower/Bathe Self (QC): 4 (SBA, pt completed sponge bath seated at recliner, able to wash/dry all parts. SBA in stand at [facility] as pt completed pericare and washed buttocks.) Upper Body Dressing (QC): 5 (set up assistance) Lower Body Dressing (QC): 2 (Pt required assistance threading BLEs into pants using therapist radiation, CGA during stand to manage pants up.) On/Off Footwear (QC): 2 (Max A donning socks using sock aide. 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, assist required to pull sock aide up by string to get sock on.) Toileting Hygiene (QC): 3 (Mod A with clothing management, Pt completed toileting seated on [facility] over toilet) Toilet Transfer (QC): 3 (Mod A toilet transfer, Pt transferred from w/c to/from [facility] over toilet) Assessment/Plan Assessment and Plan Assess & Plan/Chief Complaint Assessment: Debility Falls Right total hip replacement 04/17/20 AF Coumadin treatment SLUMS 9 HTN Anemia Plan: Monitor BP Monitor INR IRF protocol 05/09/20: Venofer for low iron and anemia Check B12 and TSH due to dementia Supportive care BM regimen 05/10/20: IV iron infusion Monitor for falls and impulsiveness 05/11/20: Improved status More lucid IV iron infusions 05/12/20: Monitor BP IV iron infusions BM regimen 05/13/20: Monitor Hemoglobin Iron infusions Increase Coumadin Check stools for blood 05/14/20: Monitor INR Maintain Lovenox Monitor closely 05/15/20: Discuss dispo Lovenox bridge Monitor INR Declines endoscopy Check labs in am 05/16/20: Refusing to take Coumadin Refusing endoscopies Lovenox while inpatient Pain control 05/17/20: Pain control COVID test Wednesday for AL on Wednesday05/18/20: Labs in am COVID test for Wednesday Monitor for falls 05/19/20: DC Lovenox Eliquis 5mg PO BID will be started Hgb stable Needs endo as outpatient COVID test in am (1) Status post right hip replacement (2) Atrial fibrillation (3) On warfarin therapy (4) Falls frequently (5) Cognitive deficits (6) Hypertension (7) Anemia (8) Dehydration ELAINE CASTRO DO May 19, 2020 11:45
[2020-05-19 17:10] VITALS: BP 131/68
[2020-05-19] MEDS: HYDROcodone/APAP 5 MG/325 MG (LORTAB) TAB PO PRN (20:08)
[2020-05-19] MEDS: APIXABAN 5 MG (ELIQUIS) TABLET PO SCH (20:08)
--- NOTE | 2020-05-20 05:47 | PM&R Progress Note ---
Subjective HPI/CC On Admission Date Seen by Provider: May 20, 2020 Time Seen by Provider: 09:00 Subjective/Events-last exam 05/20/20: Pt unsure if he wants to go to assisted living or nursing facility Eliquis treatment will be sent into the pharmacy to be sure its covered Bowels are moving Covid swab is negative Climbed out of bed last night Have definitely some sun downing 05/19/20: Did better last night and called RN when he wanted to get up to go to the bathroom Venofer infusion completed DC IV now COVID test in morning Hgb 8.9 Talked to him about Eliquis and he is willing to do that so will assure his insurance pays for it prior to DC Needs endoscopy in future 05/18/20: Patient still refusing Coumadin Lovenox maintained Needs scopes but declines AL Wednesday Needs COVID testing Wednesday Tried to get OOB last night no confusion just impulsive 05/17/20: Refusing to take Coumadin Pain in his hip requiring Hydrocodone No other pain issues Bowels are moving pretty well 05/16/20: Pt refusing to take Coumadin anymore Lovenox maintained in the mean time Hydrocodone helps with his pain Overall very difficult to evaluate things because his anemia is likely from chronic GI blood loss but he refuses scopes 05/15/20: Pt doing a little better INR 1.6 maintained on Lovenox Focusing on safety awareness He is stand-by assist but has difficulty with cognition Discharge plan will be discussed with family Hemoccult + stools Declined endoscopy by Dr Allen consultation 05/14/20: INR 1.4 Coumadin of 4mg will be increased Lovenox for bridge Hemoccult pending Doing pretty well 05/13/20: Hgb 7.9 INR 1.5 will increase Coumadin to 4mg and maintain on Lovenox bridge Bowels moving very well Hemoccult will be ordered 05/12/20: BM yesterday Doing well Labs due tomorrow IV Venofer tolerated 05/11/20: More lucid today Much improved since admit In good spirits today BM+ 05/10/20: IV iron infusion tolerated and updated him on that status BM yesterday Needs 24/7 care so will need to talk to family about disposition Pain with PT right hip replacement Patient settling in well Dementia noted and SLUMS was [address] testing increased from 9 when it was done [place] [facility] Delirium likely a component but baseline dementia is confirmed Impulsive and tried to get OOB last night Bed alarm in place INR 3.4 so holding Coumadin again tonight Iron level noted so will start Venofer due to severe anemia Checking TSH and B12 also Conferred with RN Reviewed therapy notes Checked meds and labs Review of Systems Musculoskeletal: leg pain Objective Exam Vital Signs Vital Signs Date Time Temp Pulse Resp B/P (MAP) Pulse Ox O2 Delivery O2 Flow Rate FiO2 05/20/20 21:00 95 Room Air 05/20/20 20:55 66 18 169/72 (104) 05/20/20 18:29 36.6 Capillary Refill : Less Than 3 SecondsLess Than 3 Seconds General Appearance: No Apparent Distress, WD/WN, Chronically ill HEENT: PERRL/EOMI, Normal ENT Inspection, Pharynx Normal Neck: Full Range of Motion, Normal Inspection, Non Tender, Supple, Carotid Bruit Respiratory: Chest Non Tender, Lungs Clear, Normal Breath Sounds, No Accessory Muscle Use, No Respiratory Distress Cardiovascular: Regular Rate, Rhythm, No Edema, No Gallop, No JVD, No Murmur, Normal Peripheral Pulses, Irregularly Irregular Gastrointestinal: Normal Bowel Sounds, No Organomegaly, No Pulsatile Mass, Non Tender, Soft Back: Normal Inspection, No CVA Tenderness, No Vertebral Tenderness Extremity: Normal Capillary Refill, Normal Inspection, Normal Range of Motion, Non Tender, No Calf Tenderness, No Pedal Edema Neurologic/Psychiatric: Alert, Oriented x3, No Motor/Sensory Deficits, Normal Mood/Affect, cabin supervisor II-XII Norm as Tested, Abnormal Gait, Motor Weakness (right leg due to pain), Other (poor recall) Skin: Normal Color, Warm/Dry Lymphatic: No Adenopathy Results/Procedures Lab Patient resulted labs reviewed. FIM Transfers Therapy Code Descriptions/Definitions Functional [place] Measure: 0=Not Assessed/NA 4=Minimal Assistance 1=Total Assistance 5=Supervision or Setup 2=Maximal Assistance 6=Modified [place] 3=Moderate Assistance 7=Complete IndependenceSCALE: Activities may be completed with or without assistive devices. 1-Xgwdfixaey-gblqvhb completes the activity by him/herself with no assistance from a helper. 5-Set-up or Clean-up Assistance-helper sets up or cleans up; patient completes activity. [place] assists only prior to or following the activity. 4-Supervision or Touching Assistance-helper provides verbal cues and/or touching/steadying and/or contact guard assistance as patient completes activity. Assistance may be provided throughout the activity or intermittently. 3-Partial/Moderate Assistance-helper does LESS THAN HALF the effort. [place] lifts, holds or supports trunk or limbs, but provides less than half the effort. 2-Substantial/Maximal Assistance-helper does MORE THAN HALF the effort. [place] lifts or holds trunk or limbs and provides more than half the effort. 2-Jeswhhqlt-olvelf does ALL the effort. Patient does none of the effort to complete the activity. Or, the assistance of 2 or more helpers is required for the patient to complete the activity. If activity was not attempted, code reason: 7-Patient Refused. 9-Not Applicable-not attempted and the patient did not perform the activity before the current illness, exacerbation or injury. 10-Not Attempted due to Environmental Limitations-(lack of equipment, weather restraints, etc.). 88-Not Attempted due to Medical Conditions or Safety Concerns. Roll Left to Right (QC): 6 Sit to Lying (QC): 6 Sit to Stand (QC): 4 Chair/Kfd-ok-Jbggx Xfer(QC): 5 Car Transfer (QC): 4 Gait Training Does the Patient Walk?: Yes Distance: 75', 50', 75' Walk 10 feet (QC): 4 Walk 50 ft with 2 Turns(QC): 4 Walk 150 ft (QC): 88 Walking 10ft/uneven surface-QC: 3 Gait Persons Needed: 1 Gait Assistive Device: FWW Wheelchair Training Does the Pt Use a Wheelchair?: Yes Distance: 150'x4 Wheel 50 ft with 2 turns (QC): 5 Wheel 150 ft (QC): 5 Type of Wheelchair: Manual Stair Training Stair Training: Handrails/: 2 handrails #of Steps: 1 1 Step (curb) (QC): 1 4 Steps (QC): 88 12 Steps (QC): 88 Balance Picking up an Object (QC): 88 ADL-Treatment Eating (QC): 6 (Pt indicates he was able to eat breakfast without difficulty.) Oral Hygiene (QC): 4 (CGA) Shower/Bathe Self (QC): 4 (SBA, pt completed sponge bath seated at recliner, able to wash/dry all parts. SBA in stand at W as pt completed pericare and washed buttocks.) Upper Body Dressing (QC): 5 (set up assistance) Lower Body Dressing (QC): 2 (Pt required assistance threading BLEs into pants using associate professor of physics, CGA during stand to manage pants up.) On/Off Footwear (QC): 2 (Max A donning socks using sock aide. 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, assist required to pull sock aide up by string to get sock on.) Toileting Hygiene (QC): 3 (Mod A with clothing management, Pt completed toileting seated on [facility] over toilet) Toilet Transfer (QC): 3 (Mod A toilet transfer, Pt transferred from w/c to/from [facility] over toilet) Assessment/Plan Assessment and Plan Assess & Plan/Chief Complaint Assessment: Debility Falls Right total hip replacement 04/17/20 AF Coumadin treatment SLUMS 9 HTN Anemia Plan: Monitor BP Monitor INR IRF protocol 05/09/20: Venofer for low iron and anemia Check B12 and TSH due to dementia Supportive care BM regimen 05/10/20: IV iron infusion Monitor for falls and impulsiveness 05/11/20: Improved status More lucid IV iron infusions 05/12/20: Monitor BP IV iron infusions BM regimen 05/13/20: Monitor Hemoglobin Iron infusions Increase Coumadin Check stools for blood 05/14/20: Monitor INR Maintain Lovenox Monitor closely 05/15/20: Discuss dispo Lovenox bridge Monitor INR Declines endoscopy Check labs in am 05/16/20: Refusing to take Coumadin Refusing endoscopies Lovenox while inpatient Pain control 05/17/20: Pain control COVID test Wednesday for AL on Wednesday05/18/20: Labs in am COVID test for Wednesday Monitor for falls 05/19/20: DC Lovenox Eliquis 5mg PO BID will be started Hgb stable Needs endo as outpatient COVID test in am 05/20/20: DC to NH or [place] Pain meds Eliquis Needs endoscopy outpatient (1) Status post right hip replacement (2) Atrial fibrillation (3) On warfarin therapy (4) Falls frequently (5) Cognitive deficits (6) Hypertension (7) Anemia (8) Dehydration ELAINE CASTRO DO May 20, 2020 05:47
[2020-05-20 06:00] VITALS: BP 162/77
--- NOTE | 2020-05-20 08:10 | NUR ---
CALLED LAB FOR IN HOUSE RAPID COVID TEST ORDERED BY DR. CASTRO
[2020-05-20] MEDS: APIXABAN 5 MG (ELIQUIS) TABLET PO SCH ×2 (08:46→21:00)
[2020-05-20] MEDS: LOSARTAN 50 MG (COZAAR) TAB PO SCH (08:46)
[2020-05-20] MEDS: ISOSORBIDE MONONITRATE 30 MG (IMDUR) TAB PO SCH (08:46)
[2020-05-20] MEDS: CARVEDILOL 12.5 MG (COREG) TABLET PO SCH ×2 (08:46→21:00)
--- NOTE | 2020-05-20 09:01 | Physical Therapy Daily Note ---
PT Daily Note-Current Subjective Pt. agrees to Rx, c/o pain in right hip at 3/10, and some brief SOB and fatigue with Rx. Pain Numeric Pain Scale: 3 Location: Right Location Body Site: Hip Pain Description: Ache Mental Status Patient Orientation: Confused Attachments: Other-See Comments (ask while out of room) Transfers SCALE: Activities may be completed with or without assistive devices. 2-Hbkobxgbko-hmbokep completes the activity by him/herself with no assistance from a helper. 5-Set-up or Clean-up Assistance-helper sets up or cleans up; patient completes activity. [place] assists only prior to or following the activity. 4-Supervision or Touching Assistance-helper provides verbal cues and/or touching/steadying and/or contact guard assistance as patient completes activity. Assistance may be provided throughout the activity or intermittently. 3-Partial/Moderate Assistance-helper does LESS THAN HALF the effort. [place] lifts, holds or supports trunk or limbs, but provides less than half the effort. 2-Substantial/Maximal Assistance-helper does MORE THAN HALF the effort. [place] lifts or holds trunk or limbs and provides more than half the effort. 3-Cjdprytuk-mbwdcc does ALL the effort. Patient does none of the effort to complete the activity. Or, the assistance of 2 or more helpers is required for the patient to complete the activity. If activity was not attempted, code reason: 7-Patient Refused. 9-Not Applicable-not attempted and the patient did not perform the activity before the current illness, exacerbation or injury. 10-Not Attempted due to Environmental Limitations-(lack of equipment, weather restraints, etc.). 88-Not Attempted due to Medical Conditions or Safety Concerns. Roll Left & Right (QC): 4 Sit to Lying (QC): 4 Lying to Sitting/Side of Bed(Q: 4 Sit to Stand (QC): 4 Chair/Vdx-sw-Qihwi Xfer(QC): 4 Car Transfer (QC): 4 needs CGA and instruction and reassurance for all function Weight Bearing Weight Bearing/Tolerated Full Weight Bearing Gait Training Does the Patient Walk?: Yes Walk 10 feet (QC): 4 Walk 50 ft with 2 Turns(QC): 4 Walk 150 ft (QC): 88 Walking 10ft/uneven surface-QC: 4 Gait Persons Needed: 1 Gait Assistive Device: FWW pt. c/o fatigue and increasing pain with gait attempted past approx 60-70 ft. gait antalgic, heavy wt bearing on FWW Stair Training Stair Training: Handrails/: uses walker #of Steps: 1 1 Step (curb) (QC): 3 4 Steps (QC): 88 12 Steps (QC): 88 Stairs: Pattern: Step to requires mod to min assist and much instruction and reassurance , pt. somewhat melting as he ascends step with left , sequencing instruction needed for all Balance Picking up an Object (QC): 88 Exercises Seated Therapy Exercises: Ankle pumps, Sit to stand, Long arc quads Seated Reps: 12 Treatments needed much instruction for safe chair approaches and safe sit to sup as well as reminders about hip precautions Assessment Current Status: Fair Progress confusion, fatigue and some times SOB limit progress,pt.also has difficulty staying on task PT Short Term Goals Short Term Goals Time Frame: May 15, 2020 Roll Left & Right: 6 Sit to lyin Lying to sitting on side of be: 4 Sit to stand: 4 Chair/zzz-qd-bxchr transfer: 4 Walk 10 feet: 4 Walk 50 feet with two turns: 4 1 step (curb): 3 PT Skilled Nursing Goals Door Puller Goals PT Door Puller Goals Time Frame: May 29, 2020 Roll Left & Right (QC): 6 Sit to Lying (QC): 6 Lying-Sitting on Side/Bed(QC): 6 Sit to Stand (QC): 6 Chair/Zyp-cv-Gvozk Xfer(QC): 6 Toilet Transfer (QC): 6 Car Transfer (QC): 6 Does the Patient Walk: Yes Walk 10 feet (QC): 4 Walk 50ft with 2 Turns (QC): 4 Walk 150 ft (QC): 4 Walking 10ft on Uneven Surface: 4 1 Step (curb) (QC): 4 4 Steps (QC): 4 12 Steps (QC): 88 Picking up an Object (QC): 4 Wheel 50 feet with 2 turns (QC: 6 Type: Manual Wheel 150 feet: 6 Type: Manual PT Plan Treatment/Plan Treatment Plan: Continue Plan of Care Treatment Plan: Bed Mobility, Education, Functional Activity Manuela, Functional Strength, Group Therapy, Gait, Safety, Therapeutic Exercise, Transfers Treatment Duration: May 22, 2020 Frequency: At least 5 of 7 days/Wk (IRF) Estimated Hrs Per Day: 1.5 hours per day Patient and/or Family Agrees t: Yes Safety Risks/Education Patient Education: Gait Training, Transfer Techniques, Steps, Correct Posi tioning, Disease Process, Safety Issues Teaching Methods: Demonstration, Discussion Response to Teaching: Verbalize Understanding, Return Demonstration, Reinforcement Needed Time/GCodes Time In: 800 Time Out: 900 Total Billed Treatment Time: 60 Total Billed Treatment 1,FA35m,GT25m LONNY OCONNELL FIBERGLASS LUGGAGE MOLDER May 20, 2020 09:01
[2020-05-20] MEDS: polyethylene glycoL POWDER 17 GM (MIRALAX) PACK PO SCH ×2 (09:08→21:00)
[2020-05-20] MEDS ORDERED: APIX5TAB PO (09:13)
--- NOTE | 2020-05-20 10:35 | Progress Note ---
MIRYAM BERTRAND MED STUDENT 05/20/20 1035: Progress Note S: No acute events overnight. Has been having bowel movements every other day. Said therapy increases his pain to a 7/10 but he normally is at a 4 or 5 out of 10. No other symptoms at this time. O: Vitals stable COVID negative physical exam: lungs CTAB, RRR, no murmur, no abd TTP, no other acute findings on exam A/P: Plan to discharge tomorrow to assisted living If approved by insurance, plan to prescribe apixaban outpatient Biggest barrier at this point to discharge is pain control and patient reports that the pain is manageable right now YANETH CASTRO DO 05/21/20 0527: Supervisory-Addendum Brief Verification & Attestation Participated in pt care: history, MDM, physical Personally performed: exam, history, MDM, supervision of care Care discussed with: Medical Student Procedures: n/a Results interpretation: Verified all documentation Verification and Attestation of Medical Student E/M Service A medical student performed and documented this service in my presence. I reviewed and verified all information documented by the medical student and made modifications to such information, when appropriate. I personally performed the physical exam and medical decision making. Yaneth Castro, May 21, 2020,05:27 MIRYAM BERTRAND MED STUDENT May 20, 2020 10:35 YANETH CASTRO DO May 21, 2020 05:27
--- NOTE | 2020-05-20 10:41 | Speech Therapy Daily Note ---
Speech Daily Progress Note Subjective Date Seen by Provider: May 20, 2020 Time Seen by Provider: 00:30 Patient was sitting up in his recliner when I entered his room. Patient c/o "them wanting him to go to a place that will cost me two thousand a month". Objective Patient completed a series of relevant questions related to his needs upon discharge. The patient required cues to return to task. Assessment Assessment Current Status: Fair Progress Treatment Plan Discontinue ST Speech Short Term Goals Short Term Goals Short Term Goals 1) Patient will complete memory tasks related to his daily needs at 80% or greater with minimal cues. 2) Patient will complete safety awareness tasks related to his daily needs at 80% or greater with minimal cues. 3) Patient will complete problem solving tasks related to his daily needs at 80% or greater with minimal cues. 4) Patient will attend to task at 80% or greater for improving level of function. Speech Clinic Supervisor Goals Senior Care Goals Patient will improve cognitive-communication abilities in order to complete daily tasks with minimal assist. Speech-Plan Patient/Family Goals Patient/Family Goals: The patient is scheduled to discharge tomorrow. Treatment Plan Speech Therapy Treatment Plan: Discontinue ST Treatment Duration: May 17, 2020 Frequency: 4 times per week (Patient will receive skilled ST 4-5x per week) Estimated Hrs Per Day: .5 hour per day Rehab Potential: Fair Barriers to Learning: Patient's medical status, cognitive deficits Pt/Family Agrees to Plan: Yes Safety Risks/Education Teaching Recipient: Patient Teaching Methods: Demonstration, Discussion Response to Teaching: Verbalize Understanding, Return Demonstration Education Topics Provided: Continued safety upon discharge Time Speech Therapy Time In: 10:00 Speech Therapy Time Out: 10:30 Total Billed Time: 30 Billed Treatment Time 1MILO [address] ST May 20, 2020 10:41
--- NOTE | 2020-05-20 11:14 | NUR ---
CM/SS DISCHARGE PLANNING Call early a.m. from son Wale Wright that patient and his spouse had been talking over the weekend and patient was less willing to move into [facility]. Supervisor [employer] spoke with patient who does question the cost per month, and since the sons had chosen to field this without full disclosure to patient sports book writer stated "several thousand per month." Patient stated the total monthly income for him and spouse was $1600 and that he could not afford more than that monthly. Patient then reverted back to going home and hiring someone to care for them; however, this had been ruled out by family since the anticipation would be that patient would fire any help due to cost and believe he could manage himself and his invalid as before. Entire situation reviewed. Wale shared that the rent for the initial smaller room is $3650, plus $1700 for "additional care needs" at this time, plus a large deposit to hold the upgrade room for both patient/spouse, for a total of $8100 just to get patient moved in. Considering all facets of this complex situation, sports book writer discussed a bridge SNF placement with both patient and son Wale. Patient agreed to a short term community SNF placement under Medicare benefits so that the [facility] arrangements could be better planned. Additionally, the higher the level patient could function, the less his "additional care needs" costs would be. Wale identified [facility] as their choice facility, referral completed with [facility]. Await confirmation acceptance/denial. Covid rapid testing was already completed, result negative, in prep for his [facility] admission.
[2020-05-20] MEDS: SENNA W/DOCUSATE (SENOKOT S) TABLET PO SCH ×2 (11:32→21:00)
--- NOTE | 2020-05-20 13:03 | Occupational Ther Daily Note ---
OT Current Status-Daily Note Subjective Pt seated in recliner, agreeable to OT Tx. Pt indicates he does not believe he is discharging tomorrow because he is not going to go to an [facility] where they are going to spoon feed him. OT educated pt about the benefits and purpose of [facility], but pt still indicated he is not going to let his kids pay $2,000/month for him to go there. Pt also indicates he probably will not follow hip precautions when he discharges from facility, OT educated pt on purpose of his hip precautions but pt still indicates he will not follow them. ADL-Treatment Therapy Code Descriptions/Definitions Functional [place] Measure: 0=Not Assessed/NA 4=Minimal Assistance 1=Total Assistance 5=Supervision or Setup 2=Maximal Assistance 6=Modified [place] 3=Moderate Assistance 7=Complete IndependenceSCALE: Activities may be completed with or without assistive devices. 9-Ojjmppmcrg-gqqwtjq completes the activity by him/herself with no assistance from a helper. 5-Set-up or Clean-up Assistance-helper sets up or cleans up; patient completes activity. [place] assists only prior to or following the activity. 4-Supervision or Touching Assistance-helper provides verbal cues and/or touching/steadying and/or contact guard assistance as patient completes activity. Assistance may be provided throughout the activity or intermittently. 3-Partial/Moderate Assistance-helper does LESS THAN HALF the effort. [place] lifts, holds or supports trunk or limbs, but provides less than half the effort. 2-Substantial/Maximal Assistance-helper does MORE THAN HALF the effort. [place] lifts or holds trunk or limbs and provides more than half the effort. 0-Rjuwlzuor-wiecdh does ALL the effort. Patient does none of the effort to complete the activity. Or, the assistance of 2 or more helpers is required for the patient to complete the activity. If activity was not attempted, code reason: 7-Patient Refused. 9-Not Applicable-not attempted and the patient did not perform the activity before the current illness, exacerbation or injury. 10-Not Attempted due to Environmental Limitations-(lack of equipment, weather restraints, etc.). 88-Not Attempted due to Medical Conditions or Safety Concerns. Eating (QC): 6 (Pt indicates no difficulties eating breakfast, able to cut food, open containers, and use utensils.) Oral Hygiene (QC): 4 (CGA standing at sink) Shower/Bathe Self (QC): 4 (CGA during stands at [facility]. Pt required moderate cues for sequencing and safety to adhere to hip precautions. Pt able to wash/dry all parts.) Upper Body Dressing (QC): 5 (set up assist) Lower Body Dressing (QC): 3 (Min A with threading pants/underwear onto RLE. Max verbal cues to adhere to hip precautions and to use AE due to poor carryover between txs.) On/Off Footwear: 3 (Pt able to doff socks using hardwood floor installation helper. Pt able to don socks onto sockaid, min A with pulling sock aide/sock onto RLE.) Toileting Hygiene (QC): 4 (CGA, pt able to manage clothing and perform hygiene.) Other Treatment Pt seated in recliner, used FWW to ambulate into restroom with CGA. Pt stood at sink for oral care, then transferred onto shower chair. Pt managed pants/underwear down standing at [facility], with CGA, then sat on SC. OT handed pt hardwood floor installation helper, pt sat it on the bench and began reaching forward to take pants off the rest of the way. OT told pt to stop, but pt unable to identify error. OT instructed pt to use hardwood floor installation helper, he then began trying to pull off his socks at the tip of the toes with the hardwood floor installation helper. OT cued pt to push his pants off first, then socks, pt then able to complete task. Pt doffed shirt, and OT set up shower area. Pt completed shower sitting on SC, requiring cues for sequencing of task, and cues to use long handled sponge to wash lower legs/feet. CGA in stand at [facility] as pt performed pericare and washed buttocks. Pt dried off, then donned clothes seated on SC. Pt required min A with threading RLE into pants/underwear and min A with R sock. Once pt donned clothes, he stood at FWW and ambulated to recliner, [facility]. Post OT Tx, pt seated in recliner, call light in reach and all needs met. Education OT Patient Education: Correct positioning, Modified ADL techniques, Progress toward Goal/Update tx plan, Purpose of tx/functional activities, Reviewed precautions, Rehab process, Safety issues Teaching Recipient: Patient Teaching Methods: Discussion Response to Teaching: Verbalize Understanding, Reinforcement Needed OT Center Receptionist Goals Senior Care Goals Time Frame: May 31, 2020 Eating (QC): 6 Oral Hygiene (QC): 6 Toileting Hygiene (QC): 6 Shower/Bathe Self (QC): 6 Upper Body Dressing (QC): 6 Lower Body Dressing (QC): 6 On/Off Footwear (QC): 6 Additional Goals: 1-Demonstrate ADL Tasks, 2-Verbalize Understanding, 3-ImproveStrength/[place] 1=Demonstrate adherence to instructed precautions during ADL tasks. 2=Patient will verbalize/demonstrate understanding of assistive devices/modifications for ADL. 3=Patient will improve strength/tolerance for activity to enable patient to perform ADL's. OT Education/Plan Problem List/Assessment Assessment: Decreased Activ Tolerance, Decreased Safety Aware, Decreased UE Strength, Impaired Funct Balance, Impaired I ADL's, Impaired Self-Care Skills Discharge Recommendations Plan/Recommendations: Continue POC Equpiment Recommendations-D/C: Hip Kit Treatment Plan/Plan of Care Patient would benefit from OT for education, treatment and training to promote independence in ADL's, mobility, safety and/or upper extremity function for ADL's. Plan of Care: ADL Retraining, Functional Mobility, Group Exercise/Act as Ind, UE Funct Exercise/Act Treatment Duration: May 31, 2020 Frequency: At least 5 of 7 days/Wk (IRF) Estimated Hrs Per Day: 1.5 hours per day Agreement: Yes Rehab Potential: Fair Time/GCodes Start Time: 10:45 Stop Time: 12:00 Total Time Billed (hr/min): 75 Billed Treatment Time 1, ADL 5 LEILANI CARSON OT May 20, 2020 13:03
--- NOTE | 2020-05-20 14:34 | Therapy Group Daily Note ---
Therapy Daily Group Note Patient Education Topic Other List Below (memory strategies) Session Ratio (pt:therapist): 4:1 Goal of Session: Memory Strategies Goal Met for this Session: Yes Pt Benefit of Group: F/U Use of Strategies @Home, Improved Cognition, Socialization Other/Notes Pt. participated in group PT OT session today . Pt. was assisted in ambulating from his room with FWW. Pt. was donned with mask and social spacing was insitu. Pts. introduced themselves, shared their home town and a childhood memory. Education was shared regarding long and short term memory , memory strategies and association. Memory challenge game involving matching images, that had been revealed then turned over . This patient was very god at this challenge and expressed that he enjoyed this activity. Pts. shared their own memory strategies that seem to work for them. Pt. to room after group session, call ulrich at hand, needs met. Start Time: 13:00 Stop Time: 14:15 Total Billed Treatment Time: 75 Total Billed Treatment 1,GRP LONNY OCONNELL GAMING MANAGER May 20, 2020 14:34
[2020-05-20 18:29] VITALS: BP 146/65
--- NOTE | 2020-05-20 19:13 | NUR ---
bedside report received from PEGGY GUTIERREZ, assume care of pt
[2020-05-20 20:55] VITALS: BP 169/72
[2020-05-20] MEDS: HYDROcodone/APAP 5 MG/325 MG (LORTAB) TAB PO PRN (21:00)
--- NOTE | 2020-05-20 21:00 | NUR ---
pt refused miralax & Senokot, bed alarm on as pt forgets to call nurse when wanting up, c/o rt hip pain level 4/10 on numeric scale, Lortab 5 1 tab given
--- NOTE | 2020-05-20 21:30 | NUR ---
resting quietly in bed, pain level 0/10 on CNPI scale
[2020-05-20] MEDS: DOCUSATE SODIUM 100 MG (COLACE) CAP PO PRN (22:11)
--- NOTE | 2020-05-20 22:11 | NUR ---
requests stool softener, Colace 100mg 1 given
[2020-05-21 05:03] VITALS: BP 165/76
[2020-05-21] MEDS ORDERED: DCS100C PO (05:29)
[2020-05-21] MEDS ORDERED: ACHD5005 PO (05:29)
--- NOTE | 2020-05-21 05:30 | Discharge Inst-Skilled Nursing ---
Discharge Inst-Skilled NF Reconcile Patient Problems Problems Reviewed?: Yes Patient Instructions Patient Problems: s/p right hip replacement Dementia AF Anemia Needs EGD COlonoscopy as outpatient Goal: Return home or AL Consult/Follow Up/Orders Follow Up Appt.: Dr Power PCP Skilled NF Admit to: Certification (SNF) I certify that SNF services are required to be given on an inpatient basis because of the above named patient's need for fci care on a continuing basis for the conditions(s) for which he/she was receiving inpatient hospital services prior to his/her transfer to the SNF. Detention Facility Order: Nursing Services, Packaging Associate-Evaluate & Treat, Physical Therapy-Evaluate & Treat Oxygen Delivery Method: Room Air Discharge Diet: No Restrictions Daily Activity as Tolerated: Yes Resuscitation Status: Do Not Resuscitate New & Resume Previous Orders New Medications: Apixaban (Eliquis) 5 Mg Tablet 5 MG PO BID, #60 TAB Docusate Sodium (Dok) 100 Mg Capsule 100 MG PO BID PRN for CONSTIPATION-1ST LINE for 30 Days, CAP Hydrocodone/Acetaminophen (Hydrocodone-Acetamin 5-325 mg) 1 Each Tablet 1 TAB PO Q6H PRN for PAIN-MODERATE (5-7), #30 TAB Continued Medications: Carvedilol (Coreg) 25 Mg Tab 25 MG PO BID, TAB Furosemide (Furosemide) 40 Mg Tablet 40 MG PO DAILY for FLUID RETENTION, TAB Isosorbide Mononitrate (Isosorbide Mononitrate ER) 30 Mg Tab.er.24h 30 MG PO DAILY, TAB Losartan Potassium (Losartan Potassium) 50 Mg Tablet 50 MG PO DAILY, TAB Discontinued Medications: Warfarin Sodium (Warfarin Sodium) 4 Mg Tablet 4 MG PO HS, TAB Yaneth Millan May 21, 2020 05:29 YANETH MILLAN DO May 21, 2020 05:30
--- NOTE | 2020-05-21 05:35 | PM&R Progress Note ---
Subjective HPI/CC On Admission Date Seen by Provider: May 21, 2020 Time Seen by Provider: 09:00 Subjective/Events-last exam 05/21/20: Bowels moved 05/19 Eating pretty well Plan for assisted living tomorrow His PCP retired so I will sign off on those orders 05/20/20: Pt unsure if he wants to go to assisted living or nursing facility Eliquis treatment will be sent into the pharmacy to be sure its covered Bowels are moving Covid swab is negative Climbed out of bed last night Have definitely some sun downing 05/19/20: Did better last night and called RN when he wanted to get up to go to the bathroom Venofer infusion completed DC IV now COVID test in morning Hgb 8.9 Talked to him about Eliquis and he is willing to do that so will assure his insurance pays for it prior to DC Needs endoscopy in future 05/18/20: Patient still refusing Coumadin Lovenox maintained Needs scopes but declines AL Wednesday Needs COVID testing Wednesday Tried to get OOB last night no confusion just impulsive 05/17/20: Refusing to take Coumadin Pain in his hip requiring Hydrocodone No other pain issues Bowels are moving pretty well 05/16/20: Pt refusing to take Coumadin anymore Lovenox maintained in the mean time Hydrocodone helps with his pain Overall very difficult to evaluate things because his anemia is likely from chronic GI blood loss but he refuses scopes 05/15/20: Pt doing a little better INR 1.6 maintained on Lovenox Focusing on safety awareness He is stand-by assist but has difficulty with cognition Discharge plan will be discussed with family Hemoccult + stools Declined endoscopy by Dr Allen consultation 05/14/20: INR 1.4 Coumadin of 4mg will be increased Lovenox for bridge Hemoccult pending Doing pretty well 05/13/20: Hgb 7.9 INR 1.5 will increase Coumadin to 4mg and maintain on Lovenox bridge Bowels moving very well Hemoccult will be ordered 05/12/20: BM yesterday Doing well Labs due tomorrow IV Venofer tolerated 05/11/20: More lucid today Much improved since admit In good spirits today BM+ 05/10/20: IV iron infusion tolerated and updated him on that status BM yesterday Needs 24/7 care so will need to talk to family about disposition Pain with PT right hip replacement Patient settling in well Dementia noted and SLUMS was [address] testing increased from 9 when it was done at [facility] Delirium likely a component but baseline dementia is confirmed Impulsive and tried to get OOB last night Bed alarm in place INR 3.4 so holding Coumadin again tonight Iron level noted so will start Venofer due to severe anemia Checking TSH and B12 also Conferred with RN Reviewed therapy notes Checked meds and labs Review of Systems General: Fatigue, Malaise Pulmonary: Dyspnea Objective Exam Vital Signs Vital Signs Date Time Temp Pulse Resp B/P (MAP) Pulse Ox O2 Delivery O2 Flow Rate FiO2 05/21/20 16:15 36.2 61 16 147/67 (93) 95 Room Air Capillary Refill : Less Than 3 SecondsLess Than 3 Seconds General Appearance: No Apparent Distress, WD/WN, Chronically ill HEENT: PERRL/EOMI, Normal ENT Inspection, Pharynx Normal Neck: Full Range of Motion, Normal Inspection, Non Tender, Supple, Carotid Bruit Respiratory: Chest Non Tender, Lungs Clear, Normal Breath Sounds, No Accessory Muscle Use, No Respiratory Distress Cardiovascular: Regular Rate, Rhythm, No Edema, No Gallop, No JVD, No Murmur, Normal Peripheral Pulses, Irregularly Irregular Gastrointestinal: Normal Bowel Sounds, No Organomegaly, No Pulsatile Mass, Non Tender, Soft Back: Normal Inspection, No CVA Tenderness, No Vertebral Tenderness Extremity: Normal Capillary Refill, Normal Inspection, Normal Range of Motion, Non Tender, No Calf Tenderness, No Pedal Edema Neurologic/Psychiatric: Alert, Oriented x3, No Motor/Sensory Deficits, Normal Mood/Affect, burr machine operator II-XII Norm as Tested, Abnormal Gait, Motor Weakness (right leg due to pain), Other (poor recall) Skin: Normal Color, Warm/Dry Lymphatic: No Adenopathy Results/Procedures Lab Patient resulted labs reviewed. FIM Transfers Therapy Code Descriptions/Definitions Functional [place] Measure: 0=Not Assessed/NA 4=Minimal Assistance 1=Total Assistance 5=Supervision or Setup 2=Maximal Assistance 6=Modified [place] 3=Moderate Assistance 7=Complete IndependenceSCALE: Activities may be completed with or without assistive devices. 7-Pgfzxedmjt-ivgkqya completes the activity by him/herself with no assistance from a helper. 5-Set-up or Clean-up Assistance-helper sets up or cleans up; patient completes activity. [place] assists only prior to or following the activity. 4-Supervision or Touching Assistance-helper provides verbal cues and/or touching/steadying and/or contact guard assistance as patient completes activity. Assistance may be provided throughout the activity or intermittently. 3-Partial/Moderate Assistance-helper does LESS THAN HALF the effort. [place] lifts, holds or supports trunk or limbs, but provides less than half the effort. 2-Substantial/Maximal Assistance-helper does MORE THAN HALF the effort. [place] lifts or holds trunk or limbs and provides more than half the effort. 2-Mlefcunls-atmcbv does ALL the effort. Patient does none of the effort to complete the activity. Or, the assistance of 2 or more helpers is required for the patient to complete the activity. If activity was not attempted, code reason: 7-Patient Refused. 9-Not Applicable-not attempted and the patient did not perform the activity before the current illness, exacerbation or injury. 10-Not Attempted due to Environmental Limitations-(lack of equipment, weather restraints, etc.). 88-Not Attempted due to Medical Conditions or Safety Concerns. Roll Left to Right (QC): 4 Sit to Lying (QC): 4 Sit to Stand (QC): 4 Chair/Tvn-vm-Nxzxc Xfer(QC): 4 Car Transfer (QC): 4 Gait Training Does the Patient Walk?: Yes Distance: 75', 50', 75' Walk 10 feet (QC): 4 Walk 50 ft with 2 Turns(QC): 4 Walk 150 ft (QC): 88 Walking 10ft/uneven surface-QC: 4 Gait Persons Needed: 1 Gait Assistive Device: FWW Wheelchair Training Does the Pt Use a Wheelchair?: Yes Distance: 150'x4 Wheel 50 ft with 2 turns (QC): 5 Wheel 150 ft (QC): 5 Type of Wheelchair: Manual Stair Training Stair Training: Handrails/: uses walker #of Steps: 1 1 Step (curb) (QC): 3 4 Steps (QC): 88 12 Steps (QC): 88 Stairs: Pattern: Step to Balance Picking up an Object (QC): 88 ADL-Treatment Eating (QC): 6 (Pt indicates no difficulties eating breakfast, able to cut food, open containers, and use utensils.) Oral Hygiene (QC): 4 (CGA standing at sink) Shower/Bathe Self (QC): 4 (CGA during stands at [facility]. Pt required moderate cues for sequencing and safety to adhere to hip precautions. Pt able to wash/dry all parts.) Upper Body Dressing (QC): 5 (set up assist) Lower Body Dressing (QC): 3 (Min A with threading pants/underwear onto RLE. Max verbal cues to adhere to hip precautions and to use AE due to poor carryover between txs.) On/Off Footwear (QC): 3 (Pt able to doff socks using cargo station worker. Pt able to don socks onto sockaid, min A with pulling sock aide/sock onto RLE.) Toileting Hygiene (QC): 4 (CGA, pt able to manage clothing and perform hygiene.) Toilet Transfer (QC): 3 (Mod A toilet transfer, Pt transferred from w/c to/from [facility] [place] over toilet) Assessment/Plan Assessment and Plan Assess & Plan/Chief Complaint Assessment: Debility Falls Right total hip replacement 04/17/20 AF Coumadin treatment SLUMS 9 HTN Anemia Plan: Monitor BP Monitor INR IRF protocol 05/09/20: Venofer for low iron and anemia Check B12 and TSH due to dementia Supportive care BM regimen 05/10/20: IV iron infusion Monitor for falls and impulsiveness 05/11/20: Improved status More lucid IV iron infusions 05/12/20: Monitor BP IV iron infusions BM regimen 05/13/20: Monitor Hemoglobin Iron infusions Increase Coumadin Check stools for blood 05/14/20: Monitor INR Maintain Lovenox Monitor closely 05/15/20: Discuss dispo Lovenox bridge Monitor INR Declines endoscopy Check labs in am 05/16/20: Refusing to take Coumadin Refusing endoscopies Lovenox while inpatient Pain control 05/17/20: Pain control COVID test Wednesday for AL on Wednesday05/18/20: Labs in am COVID test for Wednesday Monitor for falls 05/19/20: DC Lovenox Eliquis 5mg PO BID will be started Hgb stable Needs endo as outpatient COVID test in am 05/20/20: DC to NH or AL Pain meds Eliquis Needs endoscopy outpatient 05/21/20: DC AL tomorrow (1) Status post right hip replacement (2) Atrial fibrillation (3) On warfarin therapy (4) Falls frequently (5) Cognitive deficits (6) Hypertension (7) Anemia (8) Dehydration ELAINE CASTRO DO May 21, 2020 05:35
--- NOTE | 2020-05-21 05:36 | Discharge Summary ---
Diagnosis/Chief Complaint Date of Admission May 08, 2020 at 13:00 Date of Discharge Discharge Date: May 21, 2020 Discharge Summary Discharge Physical Examination Allergies: Coded Allergies: lisinopril (Verified Allergy, Unknown, 05/08/20) Vitals & I&Os Vital Signs Date Time Temp Pulse Resp B/P (MAP) Pulse Ox O2 Delivery O2 Flow Rate FiO2 05/21/20 05:03 35.5 70 20 165/76 (105) 95 Room Air Hospital Course Labs (last 24 hrs) Laboratory Tests 05/09/20 05:55: White Blood Count 6.0, Red Blood Count 3.06L, Hemoglobin 8.8L, Hematocrit 28L, Mean Corpuscular Volume 90, Mean Corpuscular Hemoglobin 29, Mean Corpuscular Hemoglobin Concent 32, Red Cell Distribution Width 14.6H, Platelet Count 284, Mean Platelet Volume 10.1, Immature Granulocyte % (Auto) 0, Neutrophils (%) (Auto) 65, Lymphocytes (%) (Auto) 17, Monocytes (%) (Auto) 10, Eosinophils (%) (Auto) 7, Basophils (%) (Auto) 1, Neutrophils # (Auto) 3.9, Lymphocytes # (Auto) 1.0, Monocytes # (Auto) 0.6, Eosinophils # (Auto) 0.4H, Basophils # (Auto) 0.1, Immature Granulocyte # (Auto) 0.0, Prothrombin Time 35.0H, INR Comment 3.4H, Sodium Level 138, Potassium Level 3.8, Chloride Level 106, Carbon Dioxide Level 23, Anion Gap 9, Blood Urea Nitrogen 19H, Creatinine 0.90, Estimat Glomerular Filtration Rate > 60, BUN/Creatinine Ratio 21, Glucose Level 120H, Calcium Level 8.5, Corrected Calcium 9.1, Iron Level 35L, Total Bilirubin 0.6, Aspartate Amino Transf (AST/SGOT) 18, Alanine Aminotransferase (ALT/SGPT) 15, Alkaline Phosphatase 89, Total Protein 6.4, Albumin 3.3 05/10/20 06:00: Prothrombin Time 34.9H, INR Comment 3.4H, Vitamin B12 Level 435, Thyroid Stimulating Hormone (TSH) 1.81 05/11/20 07:15: Prothrombin Time 26.6H, INR Comment 2.4H 05/13/20 05:41: White Blood Count 5.1, Red Blood Count 2.73L, Hemoglobin 7.9L, Hematocrit 24L, Mean Corpuscular Volume 89, Mean Corpuscular Hemoglobin 29, Mean Corpuscular Hemoglobin Concent 32, Red Cell Distribution Width 15.4H, Platelet Count 262, Mean Platelet Volume 10.4, Immature Granulocyte % (Auto) 1, Neutrophils (%) (Auto) 52, Lymphocytes (%) (Auto) 28, Monocytes (%) (Auto) 11, Eosinophils (%) (Auto) 8, Basophils (%) (Auto) 1, Neutrophils # (Auto) 2.6, Lymphocytes # (Auto) 1.4, Monocytes # (Auto) 0.6, Eosinophils # (Auto) 0.4H, Basophils # (Auto) 0.1, Immature Granulocyte # (Auto) 0.0, Prothrombin Time 18.8H, INR Comment 1.5H, Sodium Level 141, Potassium Level 4.0, Chloride Level 110H, Carbon Dioxide Level 22, Anion Gap 9, Blood Urea Nitrogen 21H, Creatinine 1.11, Estimat Glomerular Filtration Rate > 60, BUN/Creatinine Ratio 19, Glucose Level 116H, Calcium Level 8.4L, Corrected Calcium 9.0, Total Bilirubin 0.3, Aspartate Amino Transf (AST/SGOT) 37H, Alanine Aminotransferase (ALT/SGPT) 35, Alkaline Phosphatase 95, Total Protein 5.9L, Albumin 3.2 05/14/20 05:20: Prothrombin Time 18.0H, INR Comment 1.4 05/15/20 05:51: Prothrombin Time 19.2H, INR Comment 1.6H 05/15/20 13:15: Stool Occult Blood Immunoassay POSITIVEH 05/16/20 05:25: Prothrombin Time 21.1H, INR Comment 1.8H, White Blood Count 5.3, Red Blood Count 2.71L, Hemoglobin 8.0L, Hematocrit 25L, Mean Corpuscular Volume 91, Mean Corpuscular Hemoglobin 30, Mean Corpuscular Hemoglobin Concent 32, Red Cell Distribution Width 17.5H, Platelet Count 220, Mean Platelet Volume 10.2, Immature Granulocyte % (Auto) 1, Neutrophils (%) (Auto) 60, Lymphocytes (%) (Auto) 22, Monocytes (%) (Auto) 11, Eosinophils (%) (Auto) 6, Basophils (%) ( Auto) 1, Neutrophils # (Auto) 3.2, Lymphocytes # (Auto) 1.2, Monocytes # (Auto) 0.6, Eosinophils # (Auto) 0.3, Basophils # (Auto) 0.1, Immature Granulocyte # (Auto) 0.0, Sodium Level 139, Potassium Level 4.0, Chloride Level 109H, Carbon Dioxide Level 22, Anion Gap 8, Blood Urea Nitrogen 19H, Creatinine 1.12, Estimat Glomerular Filtration Rate > 60, BUN/Creatinine Ratio 17, Glucose Level 122H, Calcium Level 8.3L, Corrected Calcium 9.0, Total Bilirubin 0.4, Aspartate Amino Transf (AST/SGOT) 34, Alanine Aminotransferase (ALT/SGPT) 46, Alkaline Phosphata se 99, Total Protein 5.8L, Albumin 3.1L 05/19/20 05:29: White Blood Count 5.2, Red Blood Count 2.94L, Hemoglobin 8.7L, Hematocrit 27L, Mean Corpuscular Volume 93, Mean Corpuscular Hemoglobin 30, Mean Corpuscular Hemoglobin Concent 32, Red Cell Distribution Width 19.1H, Platelet Count 200, Mean Platelet Volume 10.4, Immature Granulocyte % (Auto) 0, Neutrophils (%) (Auto) 63, Lymphocytes (%) (Auto) 19, Monocytes (%) (Auto) 11, Eosinophils (%) (Auto) 5, Basophils (%) (Auto) 1, Neutrophils # (Auto) 3.3, Lymphocytes # (Auto) 1.0, Monocytes # (Auto) 0.6, Eosinophils # (Auto) 0.3, Basophils # (Auto) 0.0, Immature Granulocyte # (Auto) 0.0, Sodium Level 141, Potassium Level 4.1, Chloride Level 109H, Carbon Dioxide Level 22, Anion Gap 10, Blood Urea Nitrogen 18, Creatinine 0.97, Estimat Glomerular Filtration Rate > 60, BUN/Creatinine Ratio 19, Glucose Level 118H, Calcium Level 8.5, Corrected Calcium 9.1, Total Bilirubin 0.4, Aspartate Amino Transf (AST/SGOT) 19, Alanine Aminotransferase (ALT/SGPT) 27, Alkaline Phosphatase 105, Total Protein 6.2L, Albumin 3.3 05/20/20 08:30: Coronavirus 2019 (FILIPPO) Negative Pending Labs Laboratory Tests 05/09/20 05:55: White Blood Count 6.0, Red Blood Count 3.06, Hemoglobin 8.8, Hematocrit 28, Mean Corpuscular Volume 90, Mean Corpuscular Hemoglobin 29, Mean Corpuscular Hemoglobin Concent 32, Red Cell Distribution Width 14.6, Platelet Count 284, Mean Platelet Volume 10.1, Immature Granulocyte % (Auto) 0, Neutrophils (%) (Auto) 65, Lymphocytes (%) (Auto) 17, Monocytes (%) (Auto) 10, Eosinophils (%) (Auto) 7, Basophils (%) (Auto) 1, Neutrophils # (Auto) 3.9, Lymphocytes # (Auto) 1.0, Monocytes # (Auto) 0.6, Eosinophils # (Auto) 0.4, Basophils # (Auto) 0.1, Immature Granulocyte # (Auto) 0.0, Prothrombin Time 35.0, INR Comment 3.4, Sodium Level 138, Potassium Level 3.8, Chloride Level 106, Carbon Dioxide Level 23, Anion Gap 9, Blood Urea Nitrogen 19, Creatinine 0.90, Estimat Glomerular Filtration Rate > 60, BUN/Creatinine Ratio 21, Glucose Level 120, Calcium Level 8.5, Corrected Calcium 9.1, Iron Level 35, Total Bilirubin 0.6, Aspartate Amino Transf (AST/SGOT) 18, Alanine Aminotransferase (ALT/SGPT) 15, Alkaline Phosphatase 89, Total Protein 6.4, Albumin 3.3 05/10/20 06:00: Prothrombin Time 34.9, INR Comment 3.4, Vitamin B12 Level 435, Thyroid Stimulating Hormone (TSH) 1.81 05/11/20 07:15: Prothrombin Time 26.6, INR Comment 2.4 05/13/20 05:41: White Blood Count 5.1, Red Blood Count 2.73, Hemoglobin 7.9, Hematocrit 24, Mean Corpuscular Volume 89, Mean Corpuscular Hemoglobin 29, Mean Corpuscular Hemoglobin Concent 32, Red Cell Distribution Width 15.4, Platelet Count 262, Mean Platelet Volume 10.4, Immature Granulocyte % (Auto) 1, Neutrophils (%) (Auto) 52, Lymphocytes (%) (Auto) 28, Monocytes (%) (Auto) 11, Eosinophils (%) (Auto) 8, Basophils (%) (Auto) 1, Neutrophils # (Auto) 2.6, Lymphocytes # (Auto) 1.4, Monocytes # (Auto) 0.6, Eosinophils # (Auto) 0.4, Basophils # (Auto) 0.1, Immature Granulocyte # (Auto) 0.0, Prothrombin Time 18.8, INR Comment 1.5, Sodium Level 141, Potassium Level 4.0, Chloride Level 110, Carbon Dioxide Level 22, Anion Gap 9, Blood Urea Nitrogen 21, Creatinine 1.11, Estimat Glomerular Filtration Rate > 60, BUN/Creatinine Ratio 19, Glucose Level 116, Calcium Level 8.4, Corrected Calcium 9.0, Total Bilirubin 0.3, Aspartate Amino Transf (AST/SGOT) 37, Alanine Aminotransferase (ALT/SGPT) 35, Alkaline Phosphatase 95, Total Protein 5.9, Albumin 3.2 05/14/20 05:20: Prothrombin Time 18.0, INR Comment 1.4 05/15/20 05:51: Prothrombin Time 19.2, INR Comment 1.6 05/15/20 13:15: Stool Occult Blood Immunoassay POSITIVE 05/16/20 05:25: Prothrombin Time 21.1, INR Comment 1.8, White Blood Count 5.3, Red Blood Count 2.71, Hemoglobin 8.0, Hematocrit 25, Mean Corpuscular Volume 91, Mean Corpuscular Hemoglobin 30, Mean Corpuscular Hemoglobin Concent 32, Red Cell Distribution Width 17.5, Platelet Count 220, Mean Platelet Volume 10.2, Immature Granulocyte % (Auto) 1, Neutrophils (%) (Auto) 60, Lymphocytes (%) (Auto) 22, Monocytes (%) (Auto) 11, Eosinophils (%) (Auto) 6, Basophils (%) (Auto) 1, Neutrophils # (Auto) 3.2, Lymphocytes # (Auto) 1.2, Monocytes # (Auto) 0.6, Eosinophils # (Auto) 0.3, Basophils # (Auto) 0.1, Immature Granulocyte # (Auto) 0.0, Sodium Level 139, Potassium Level 4.0, Chloride Level 109, Carbon Dioxide Level 22, Anion Gap 8, Blood Urea Nitrogen 19, Creatinine 1.12, Estimat Glomerular Filtration Rate > 60, BUN/Creatinine Ratio 17, Glucose Level 122, Calcium Level 8.3, Corrected Calcium 9.0, Total Bilirubin 0.4, Aspartate Amino Transf (AST/SGOT) 34, Alanine Aminotransferase (ALT/SGPT) 46, Alkaline Phosphatase 99, Total Protein 5.8, Albumin 3.1 05/19/20 05:29: White Blood Count 5.2, Red Blood Count 2.94, Hemoglobin 8.7, Hematocrit 27, Mean Corpuscular Volume 93, Mean Corpuscular Hemoglobin 30, Mean Corpuscular Hemoglobin Concent 32, Red Cell Distribution Width 19.1, Platelet Count 200, Mean Platelet Volume 10.4, Immature Granulocyte % (Auto) 0, Neutrophils (%) (Auto) 63, Lymphocytes (%) (Auto) 19, Monocytes (%) (Auto) 11, Eosinophils (%) (Auto) 5, Basophils (%) (Auto) 1, Neutrophils # (Auto) 3.3, Lymphocytes # (Auto) 1.0, Monocytes # (Auto) 0.6, Eosinophils # (Auto) 0.3, Basophils # (Auto) 0.0, Immature Granulocyte # (Auto) 0.0, Sodium Level 141, Potassium Level 4.1, Chloride Level 109, Carbon Dioxide Level 22, Anion Gap 10, Blood Urea Nitrogen 18, Creatinine 0.97, Estimat Glomerular Filtration Rate > 60, BUN/Creatinine Ra kayley 19, Glucose Level 118, Calcium Level 8.5, Corrected Calcium 9.1, Total Bilirubin 0.4, Aspartate Amino Transf (AST/SGOT) 19, Alanine Aminotransferase (ALT/SGPT) 27, Alkaline Phosphatase 105, Total Protein 6.2, Albumin 3.3 05/20/20 08:30: Coronavirus 2019 (FILIPPO) Negative Discharge Home Medications: Active Scripts Active Dok (Docusate Sodium) 100 Mg Capsule 100 Mg PO BID PRN 30 Days Hydrocodone-Acetamin 5-325 mg (Hydrocodone/Acetaminophen) 1 Each Tablet 1 Tab PO Q6H PRN Eliquis (Apixaban) 5 Mg Tablet 5 Mg PO BID Reported Furosemide 40 Mg Tablet 40 Mg PO DAILY Warfarin Sodium 4 Mg Tablet 4 Mg PO HS Losartan Potassium 50 Mg Tablet 50 Mg PO DAILY Isosorbide Mononitrate ER (Isosorbide Mononitrate) 30 Mg Tab.er.24h 30 Mg PO DAILY Coreg (Carvedilol) 25 Mg Tab 25 Mg PO BID Instructions to patient/family Please see electronic discharge instructions given to patient. Diagnosis/Problems Diagnosis/Problems (1) Status post right hip replacement (2) Atrial fibrillation (3) On warfarin therapy (4) Falls frequently (5) Cognitive deficits (6) Hypertension (7) Anemia (8) Dehydration Clinical Quality Measures DVT/VTE Risk/Contraindication: Risk Factor Score Per Nursin RFS Level Per Nursing on Admit: 4+=Very High ELAINE CASTRO DO May 21, 2020 05:36
[2020-05-21] MEDS: APIXABAN 5 MG (ELIQUIS) TABLET PO SCH ×2 (08:08→20:22)
[2020-05-21] MEDS: CARVEDILOL 12.5 MG (COREG) TABLET PO SCH ×2 (08:08→20:21)
[2020-05-21] MEDS: SENNA W/DOCUSATE (SENOKOT S) TABLET PO SCH ×2 (08:08→20:30)
[2020-05-21] MEDS: LOSARTAN 50 MG (COZAAR) TAB PO SCH (08:08)
[2020-05-21] MEDS: ISOSORBIDE MONONITRATE 30 MG (IMDUR) TAB PO SCH (08:08)
[2020-05-21] MEDS: HYDROcodone/APAP 5 MG/325 MG (LORTAB) TAB PO PRN ×2 (08:12→19:20)
--- NOTE | 2020-05-21 09:04 | Physical Therapy Daily Note ---
PT Daily Note-Current Subjective Pt sitting in recliner visiting with Dr Millan's Med Student upon arrival. Pt agrees to PT. Pain Location: No Pain Reported Comment: Pt declines pain but walks antalgicly. Mental Status Patient Orientation: Person, Confused, Place Transfers SCALE: Activities may be completed with or without assistive devices. 0-Gecmdcxrqn-rctgvmg completes the activity by him/herself with no assistance from a helper. 5-Set-up or Clean-up Assistance-helper sets up or cleans up; patient completes activity. [place] assists only prior to or following the activity. 4-Supervision or Touching Assistance-helper provides verbal cues and/or touching/steadying and/or contact guard assistance as patient completes activity. Assistance may be provided throughout the activity or intermittently. 3-Partial/Moderate Assistance-helper does LESS THAN HALF the effort. [place] lifts, holds or supports trunk or limbs, but provides less than half the effort. 2-Substantial/Maximal Assistance-helper does MORE THAN HALF the effort. [place] lifts or holds trunk or limbs and provides more than half the effort. 7-Rlmplvmpi-nvdlpx does ALL the effort. Patient does none of the effort to complete the activity. Or, the assistance of 2 or more helpers is required for the patient to complete the activity. If activity was not attempted, code reason: 7-Patient Refused. 9-Not Applicable-not attempted and the patient did not perform the activity before the current illness, exacerbation or injury. 10-Not Attempted due to Environmental Limitations-(lack of equipment, weather restraints, etc.). 88-Not Attempted due to Medical Conditions or Safety Concerns. Sit to Stand (QC): 5 Toilet Transfer (QC): 5 Weight Bearing Weight Bearing/Tolerated Full Weight Bearing Gait Training Does the Patient Walk?: Yes Distance: 150' Walk 10 feet (QC): 4 Walk 50 ft with 2 Turns(QC): 4 Walk 150 ft (QC): 4 Gait Persons Needed: 1 Gait Assistive Device: FWW (Pt walks with flexed R knee and hip, encouraged to WBAT.) Pt walks with flexed R knee and hip, encouraged to WBAT. Wheelchair Training Does the Pt Use a Wheelchair?: No Exercises Seated Therapy Exercises: Ankle pumps, Long arc quads, Hip flexion, Kicking activity, Glut set Seated Reps: 15 Treatments TF to standing, uses BR before amb. in hallway. Completes Seated EX with RB as needed. Hip Precautions reviewed but not followed. Pt returns to room to rest in recliner, all needs met, call light in hand. Assessment Current Status: Fair Progress Hip Precautions reviewed but not followed. Pt also does not WBAT. PT Short Term Goals Short Term Goals Time Frame: May 15, 2020 Roll Left & Right: 6 Sit to lyin Lying to sitting on side of be: 4 Sit to stand: 4 Chair/ovj-ky-elhdx transfer: 4 Walk 10 feet: 4 Walk 50 feet with two turns: 4 1 step (curb): 3 PT Mcfp Goals Mcfp Goals PT Refinery Operator Helper Goals Time Frame: May 29, 2020 Roll Left & Right (QC): 6 Sit to Lying (QC): 6 Lying-Sitting on Side/Bed(QC): 6 Sit to Stand (QC): 6 Chair/Hif-si-Mfdzq Xfer(QC): 6 Toilet Transfer (QC): 6 Car Transfer (QC): 6 Does the Patient Walk: Yes Walk 10 feet (QC): 4 Walk 50ft with 2 Turns (QC): 4 Walk 150 ft (QC): 4 Walking 10ft on Uneven Surface: 4 1 Step (curb) (QC): 4 4 Steps (QC): 4 12 Steps (QC): 88 Picking up an Object (QC): 4 Wheel 50 feet with 2 turns (QC: 6 Type: Manual Wheel 150 feet: 6 Type: Manual PT Plan Problem List Problem List: Activity Tolerance, Functional Strength, Safety Treatment/Plan Treatment Plan: Continue Plan of Care Treatment Plan: Bed Mobility, Education, Functional Activity Manuela, Functional Strength, Group Therapy, Gait, Safety, Therapeutic Exercise, Transfers Treatment Duration: May 22, 2020 Frequency: At least 5 of 7 days/Wk (IRF) Estimated Hrs Per Day: 1.5 hours per day Patient and/or Family Agrees t: Yes Safety Risks/Education Patient Education: Gait Training, Reviewed Precautions, Correct Positioning, Safety Issues Teaching Recipient: Patient Teaching Methods: Discussion Response to Teaching: Reinforcement Needed Time/GCodes Time In: 800 Time Out: 900 Total Billed Treatment Time: 60 Total Billed Treatment 1, GT (20m), FA x2 (25m) & EX (15m) KJ BARGER [employer] EQUIPMENT SALESPERSON May 21, 2020 09:04
--- NOTE | 2020-05-21 09:16 | Occupational Ther Daily Note ---
OT Current Status-Daily Note Subjective Pt in therapy gym with PT, agreeable to OT Tx. Pt declines having any pain at this time. Pt indicates he is hoping to discharge tomorrow, but he is planning on [place] [address]. Pt states he is not going to go to an S[facility]IOR CARE or SNF, because he doesn't want to spend the money to go there. Pain Numeric Pain Scale: 0-No Pain ADL-Treatment Therapy Code Descriptions/Definitions Functional [place] Measure: 0=Not Assessed/NA 4=Minimal Assistance 1=Total Assistance 5=Supervision or Setup 2=Maximal Assistance 6=Modified [place] 3=Moderate Assistance 7=Complete IndependenceSCALE: Activities may be completed with or without assistive devices. 0-Ciopwpczbc-rcbdevu completes the activity by him/herself with no assistance from a helper. 5-Set-up or Clean-up Assistance-helper sets up or cleans up; patient completes activity. [place] assists only prior to or following the activity. 4-Supervision or Touching Assistance-helper provides verbal cues and/or touching/steadying and/or contact guard assistance as patient completes activity. Assistance may be provided throughout the activity or intermittently. 3-Partial/Moderate Assistance-helper does LESS THAN HALF the effort. [place] lifts, holds or supports trunk or limbs, but provides less than half the effort. 2-Substantial/Maximal Assistance-helper does MORE THAN HALF the effort. [place] lifts or holds trunk or limbs and provides more than half the effort. 9-Dlsxrreed-hjrjmb does ALL the effort. Patient does none of the effort to complete the activity. Or, the assistance of 2 or more helpers is required for the patient to complete the activity. If activity was not attempted, code reason: 7-Patient Refused. 9-Not Applicable-not attempted and the patient did not perform the activity before the current illness, exacerbation or injury. 10-Not Attempted due to Environmental Limitations-(lack of equipment, weather restraints, etc.). 88-Not Attempted due to Medical Conditions or Safety Concerns. Other Treatment Pt seated in therapy gym with PT prior to tx. Pt agreeable to OT tx at this time. In order to increase BUE strength and functional endurance, pt completed x20 mins arm bike, mod resistance, with rest breaks as needed. Pt then completed fine motor peg activity in order to increase BUE strength and functional endurance as well as increase BUE fine motor strength. Pt placed 1" pegs into foam pegboard, with 2 lb wrist cuffs BUEs. Pt has increased difficulty with manipulating and placing pegs using LUE due to neuropathy in hands. Pt instructed to alternate hands with each peg, but pt required moderate cues to remind him, as pt would continue placing pegs with same hand until cued. Pt took rest breaks as need throughout task, placing ~50 pegs total. Pt used FWW to perform functional mobility back to room, [facility]. Post OT Tx, pt seated in recliner, call light in reach and all needs met. Education OT Patient Education: Correct positioning, Modified ADL techniques, Progress toward Goal/Update tx plan, Purpose of tx/functional activities, Rehab process, Safety issues Teaching Recipient: Patient Teaching Methods: Discussion Response to Teaching: Verbalize Understanding OT Canvas Marker Goals Canvas Marker Goals Time Frame: May 31, 2020 Eating (QC): 6 Oral Hygiene (QC): 6 Toileting Hygiene (QC): 6 Shower/Bathe Self (QC): 6 Upper Body Dressing (QC): 6 Lower Body Dressing (QC): 6 On/Off Footwear (QC): 6 Additional Goals: 1-Demonstrate ADL Tasks, 2-Verbalize Understanding, 3- ImproveStrength/Manuela 1=Demonstrate adherence to instructed precautions during ADL tasks. 2=Patient will verbalize/demonstrate understanding of assistive devic es/modifications for ADL. 3=Patient will improve strength/tolerance for activity to enable patient to perform ADL's. OT Education/Plan Problem List/Assessment Assessment: Decreased Activ Tolerance, Decreased UE Strength, Impaired Funct Balance, Impaired I ADL's, Impaired Self-Care Skills Discharge Recommendations Plan/Recommendations: Continue POC Treatment Plan/Plan of Care Patient would benefit from OT for education, treatment and training to promote independence in ADL's, mobility, safety and/or upper extremity function for ADL's. Plan of Care: ADL Retraining, Functional Mobility, Group Exercise/Act as Ind, UE Funct Exercise/Act Treatment Duration: May 31, 2020 Frequency: At least 5 of 7 days/Wk (IRF) Estimated Hrs Per Day: 1.5 hours per day Agreement: Yes Rehab Potential: Fair Time/GCodes Start Time: 09:00 Stop Time: 10:30 Total Time Billed (hr/min): 90 Billed Treatment Time 1, EX (20'), FA 5 (70') LEILANI CARSON OT May 21, 2020 09:16
--- NOTE | 2020-05-21 12:15 | Progress Note ---
MARTA VALERA MED STUDENT 05/21/20 121: Progress Note HPI: Samuel mcege is a 89 y/o male with hx of CAD s/p quintouple bypass, cardiomyopathy w/EF 30%, HTN and afib w/pacemaker who presented to rehab on 05/08 after noted dehydration and falls following his R hip replacement by Dr. Power on 04/17. Patient was initially scheduled for inpatient rehab but elected to be discharged home. Patient was later brought to [facility] following multiple falls and dehydration with a SLUMS score of 9, no lab abnormalities. Patient later noted that he limited his fluid intake at home so that he wouldn't have to use the restroom as much since he was having a difficult time getting around. Patient was admitted to inpatient rehab from [facility] and was also started on IV Venofer for anemia which he tolerated well. Patient was noted to have (+) hemoccult while on rehab floor but declined endoscopy by Dr. Allen though recommended as it was likely interfering with cognition. On 05/16 patient refused to take his Coumadin, Lovenox was maintained. On 05/19 patient completed his Venofer with Hgb of 8.9 and he agreed to being put on Eliquis as his insurance will cover it. From a rehab standpoint, patient was admitted with partial/moderate assistance required for bed mobility and transfers, able to move only 10 feet with supervision and required substantial assistance grossly for self care. He now only requires set-up or cleanup assistance for bed mobility, able to walk 50ft and needs partial to moderate assistance grossly with self care; though he is noted to be sundowning by nursing staff. Patient states that at this point he is only limited by pain and feels as though he is capable of going home though he understands that staff have explained he might benefit from further PT/OT. At this time patient denies any pain, is able to eat well though he notes constipation with last BM being 3 days ago (states this has happned before), noting he feels well enough to leave. Patient will be discharged to skilled care facility with new Eliquis, Docusate for constipation and instructed to continue with home medication as well as the understanding that he still requires outpatient endoscopy. YANETH CASTRO DO 05/21/202024: Supervisory-Addendum Brief Verification & Attestation Participated in pt care: history, MDM, physical Personally performed: exam, history, MDM, supervision of care Care discussed with: Medical Student Procedures: n/a Results interpretation: Verified all documentation Verification and Attestation of Medical Student E/M Service A medical student performed and documented this service in my presence. I reviewed and verified all information documented by the medical student and made modifications to such information, when appropriate. I personally performed the physical exam and medical decision making. Yaneth Castro, May 21, 2020,20:25 MARTA VALERA MED STUDENT May 21, 2020 12:15 YANETH CASTRO DO May 21, 2020 20:25
[2020-05-21] MEDS: polyethylene glycoL POWDER 17 GM (MIRALAX) PACK PO SCH ×2 (12:23→20:29)
--- NOTE | 2020-05-21 15:57 | Physical Therapy Daily Note ---
PT Daily Note-Current Subjective Pt sitting in recliner upon arrival. Pt agrees to PT. Pain Location: No Pain Reported Transfers SCALE: Activities may be completed with or without assistive devices. 2-Oasfzxstlc-jrfpkrb completes the activity by him/herself with no assistance from a helper. 5-Set-up or Clean-up Assistance-helper sets up or cleans up; patient completes activity. [place] assists only prior to or following the activity. 4-Supervision or Touching Assistance-helper provides verbal cues and/or touching/steadying and/or contact guard assistance as patient completes activity. Assistance may be provided throughout the activity or intermittently. 3-Partial/Moderate Assistance-helper does LESS THAN HALF the effort. [place] lifts, holds or supports trunk or limbs, but provides less than half the effort. 2-Substantial/Maximal Assistance-helper does MORE THAN HALF the effort. [place] lifts or holds trunk or limbs and provides more than half the effort. 2-Ujmjbtsgh-klshze does ALL the effort. Patient does none of the effort to complete the activity. Or, the assistance of 2 or more helpers is required for the patient to complete the activity. If activity was not attempted, code reason: 7-Patient Refused. 9-Not Applicable-not attempted and the patient did not perform the activity before the current illness, exacerbation or injury. 10-Not Attempted due to Environmental Limitations-(lack of equipment, weather restraints, etc.). 88-Not Attempted due to Medical Conditions or Safety Concerns. Sit to Stand (QC): 5 Toilet Transfer (QC): 5 Weight Bearing Weight Bearing/Tolerated Full Weight Bearing Gait Training Does the Patient Walk?: Yes Distance: 15' x2 Walk 10 feet (QC): 5 Gait Assistive Device: FWW Treatments Pt uses BR then returns to recliner to rest. Written HEP reviewed. Pt resting in recliner, all needs met, call light in hand. Assessment Current Status: Fair Progress Pt continues to not follow Hip Precautions. Pt tells Therapists that he will follow when he feels its necessary. PT Short Term Goals Short Term Goals Time Frame: May 15, 2020 Roll Left & Right: 6 Sit to lyin Lying to sitting on side of be: 4 Sit to stand: 4 Chair/rxp-mb-zxrte transfer: 4 Walk 10 feet: 4 Walk 50 feet with two turns: 4 1 step (curb): 3 PT Jail Goals Jail Goals PT Dairy Manager Goals Time Frame: May 29, 2020 Roll Left & Right (QC): 6 Sit to Lying (QC): 6 Lying-Sitting on Side/Bed(QC): 6 Sit to Stand (QC): 6 Chair/Jet-xj-Acriy Xfer(QC): 6 Toilet Transfer (QC): 6 Car Transfer (QC): 6 Does the Patient Walk: Yes Walk 10 feet (QC): 4 Walk 50ft with 2 Turns (QC): 4 Walk 150 ft (QC): 4 Walking 10ft on Uneven Surface: 4 1 Step (curb) (QC): 4 4 Steps (QC): 4 12 Steps (QC): 88 Picking up an Object (QC): 4 Wheel 50 feet with 2 turns (QC: 6 Type: Manual Wheel 150 feet: 6 Type: Manual PT Plan Problem List Problem List: Activity Tolerance, Safety, Gait Treatment/Plan Treatment Plan: Continue Plan of Care Treatment Plan: Bed Mobility, Education, Functional Activity Manuela, Functional Strength, Group Therapy, Gait, Safety, Therapeutic Exercise, Transfers Treatment Duration: May 22, 2020 Frequency: At least 5 of 7 days/Wk (IRF) Estimated Hrs Per Day: 1.5 hours per day Patient and/or Family Agrees t: Yes Safety Risks/Education Patient Education: Reviewed Precautions, Safety Issues Teaching Recipient: Patient Teaching Methods: Discussion Response to Teaching: Reinforcement Needed Time/GCodes Time In: 1330 Time Out: 1400 Total Billed Treatment Time: 30 Total Billed Treatment 1, FA x2 (30m) KJ BARGER PTA May 21, 2020 15:57
[2020-05-21 16:15] VITALS: BP 147/67
--- NOTE | 2020-05-21 19:07 | NUR ---
bedside report received from DEVI GUTIERREZ, assume care of pt
--- NOTE | 2020-05-21 20:10 | NUR ---
pt refused miralax & Senokot & took Colace, states had stool today but hard stool, rates pain at 2/10 on numeric scale
[2020-05-21 20:15] VITALS: BP 154/70
[2020-05-21] MEDS: DOCUSATE SODIUM 100 MG (COLACE) CAP PO PRN (20:21)
--- NOTE | 2020-05-21 20:48 | D/C HH Face to Face Order ---
D/C Face to Face Orders Reconcile Patient Problems Problems Reviewed?: Yes Instructions for Patient Home Health Patient Instructions/FollowUp: PCP 1 week Physician to follow Patient: Monty until PCP assigned Discharge Diet for Home: No Restrictions Patient Problems: Right hip pain AF Patient Data-Allergies,Ht & Wt Patient Allergies: Coded Allergies: lisinopril (Verified Allergy, Unknown, 05/08/20) Home Health Need/Face to Face Date of Face to Face: May 21, 2020 Clinical Findings: Generalized weakness and fatigue, Instability, Muscle weakness, Pain with ambulation, Unsteady gait I have seen Pt opkg-np-cmvr: Yes Discharged To: Home Diagnosis/Conditions: Right hip pain AF Patient is Homebound due to: CognItive deficits, Luis fall risk due to instabilty, Pain w/ambulation Homebound Status Due to the above stated illness, injury or surgical procedure (medical condition or diagnosis) and associated clinical findings, the patient is homebound because of his/her inability to leave home except with aid of a supportive device and/or person AND leaving the home requires a considerable and taxing effort or is medically contraindicated. Pt req the following assistanc: Walker Home Health Nursing Orders Home Health Services Order: Nursing Services, Metal Refiner-Evaluate & Treat, Physical Therapy-Evaluate & Treat Certify Stmt I certify that this patient is under my care and that I, a nurse practitioner or a physician; a periodicals library assistant working with me, had a face to face encounter that - meets the physician face to face encounter requirements with this patient as dated. ELAINE CASTRO DO May 21, 2020 20:48
--- NOTE | 2020-05-22 05:49 | Discharge Summary ---
Diagnosis/Chief Complaint Date of Admission May 08, 2020 at 13:00 Date of Discharge Discharge Date: May 22, 2020 Discharge Diagnosis Assessment: Debility Falls Right total hip replacement 04/17/20 AF Coumadin treatment SLUMS 9 HTN Anemia Plan: Monitor BP Monitor INR IRF protocol 05/09/20: Venofer for low iron and anemia Check B12 and TSH due to dementia Supportive care BM regimen 05/10/20: IV iron infusion Monitor for falls and impulsiveness 05/11/20: Improved status More lucid IV iron infusions 05/12/20: Monitor BP IV iron infusions BM regimen 05/13/20: Monitor Hemoglobin Iron infusions Increase Coumadin Check stools for blood 05/14/20: Monitor INR Maintain Lovenox Monitor closely 05/15/20: Discuss dispo Lovenox bridge Monitor INR Declines endoscopy Check labs in am 05/16/20: Refusing to take Coumadin Refusing endoscopies Lovenox while inpatient Pain control 05/17/20: Pain control COVID test Wednesday for AL on Wednesday05/18/20: Labs in am COVID test for Wednesday Monitor for falls 05/19/20: DC Lovenox Eliquis 5mg PO BID will be started Hgb stable Needs endo as outpatient COVID test in am 05/20/20: DC to NH or [place] Pain meds Eliquis Needs endoscopy outpatient 05/21/20: DC [place] tomorrow (1) Status post right hip replacement (2) Atrial fibrillation (3) On warfarin therapy (4) Falls frequently (5) Cognitive deficits (6) Hypertension (7) Anemia (8) Dehydration Discharge Summary Discharge Physical Examination Allergies: Coded Allergies: lisinopril (Verified Allergy, Unknown, 05/08/20) Vitals & I&Os Vital Signs Date Time Temp Pulse Resp B/P (MAP) Pulse Ox O2 Delivery O2 Flow Rate FiO2 05/22/20 14:17 36.5 66 18 176/78 96 Room Air General Appearance: Alert, Oriented X3, Cooperative Respiratory: Clear to Auscultation Neuro: Normal Gait Hospital Course Was the Problem List Reviewed?: Yes Hospital Course: PT had a lengthy hospital course for 2 weeks after he was admitted for slow recovery and falls at home after a right hip replacement. He was managed on his home does Coumadin and he ultimately refused to take that so I did talk him into taking Eliquis for stroke prophylaxis so he was willing to do that. He did require pain medication was able to participate in therapy. He was very impulsive and his slum score was 15. Ultimately he was talking into ahsan got assisted living at [facility] with PT and home care to come in and help him and overall his labs remained stable. Hemoglobin was low, hemoccult was positive and he declined endoscopy. He will talk to his PCP to get that test outpatient and he is aware of the reason that needs to be done. Overall he did well enough to be discharged in improved condition. Labs (last 24 hrs) Laboratory Tests 05/09/20 05:55: White Blood Count 6.0, Red Blood Count 3.06L, Hemoglobin 8.8L, Hematocrit 28L, Mean Corpuscular Volume 90, Mean Corpuscular Hemoglobin 29, Mean Corpuscular Hemoglobin Concent 32, Red Cell Distribution Width 14.6H, Platelet Count 284, Mean Platelet Volume 10.1, Immature Granulocyte % (Auto) 0, Neutrophils (%) (Auto) 65, Lymphocytes (%) (Auto) 17, Monocytes (%) (Auto) 10, Eosinophils (%) (Auto) 7, Basophils (%) (Auto) 1, Neutrophils # (Auto) 3.9, Lymphocytes # (Auto) 1.0, Monocytes # (Auto) 0.6, Eosinophils # (Auto) 0.4H, Basophils # (Auto) 0.1, Immature Granulocyte # (Auto) 0.0, Prothrombin Time 35.0H, INR Comment 3.4H, Sodium Level 138, Potassium Level 3.8, Chloride Level 106, Carbon Dioxide Level 23, Anion Gap 9, Blood Urea Nitrogen 19H, Creatinine 0.90, Estimat Glomerular Filtration Rate > 60, BUN/Creatinine Ratio 21, Glucose Level 120H, Calcium Level 8.5, Corrected Calcium 9.1, Iron Level 35L, Total Bilirubin 0.6, Aspartate Amino Transf (AST/SGOT) 18, Alanine Aminotransferase (ALT/SGPT) 15, Alkaline Phosphatase 89, Total Protein 6.4, Albumin 3.3 05/10/20 06:00: Prothrombin Time 34.9H, INR Comment 3.4H, Vitamin B12 Level 435, Thyroid Stimulating Hormone (TSH) 1.81 05/11/20 07:15: Prothrombin Time 26.6H, INR Comment 2.4H 05/13/20 05:41: White Blood Count 5.1, Red Blood Count 2.73L, Hemoglobin 7.9L, Hematocrit 24L, Mean Corpuscular Volume 89, Mean Corpuscular Hemoglobin 29, Mean Corpuscular Hemoglobin Concent 32, Red Cell Distribution Width 15.4H, Platelet Count 262, Mean Platelet Volume 10.4, Immature Granulocyte % (Auto) 1, Neutrophils (%) (Auto) 52, Lymphocytes (%) (Auto) 28, Monocytes (%) (Auto) 11, Eosinophils (%) (Auto) 8, Basophils (%) (Auto) 1, Neutrophils # (Auto) 2.6, Lymphocytes # (Auto) 1.4, Monocytes # (Auto) 0.6, Eosinophils # (Auto) 0.4H, Basophils # (Auto) 0.1, Immature Granulocyte # (Auto) 0.0, Prothrombin Time 18.8H, INR Comment 1.5H, Sodium Level 141, Potassium Level 4.0, Chloride Level 110H, Carbon Dioxide Level 22, Anion Gap 9, Blood Urea Nitrogen 21H, Creatinine 1.11, Estimat Glomerular Filtration Rate > 60, BUN/Creatinine Ratio 19, Glucose Level 116H, Calcium Level 8.4L, Corrected Calcium 9.0, Total Bilirubin 0.3, Aspartate Amino Transf (AST/SGOT) 37H, Alanine Aminotransferase (ALT/SGPT) 35, Alkaline Phosphatase 95, Total Protein 5.9L, Albumin 3.2 05/14/20 05:20: Prothrombin Time 18.0H, INR Comment 1.4 05/15/20 05:51: Prothrombin Time 19.2H, INR Comment 1.6H 05/15/20 13:15: Stool Occult Blood Immunoassay POSITIVEH 05/16/20 05:25: Prothrombin Time 21.1H, INR Comment 1.8H, White Blood Count 5.3, Red Blood Count 2.71L, Hemoglobin 8.0L, Hematocrit 25L, Mean Corpuscular Volume 91, Mean Corpuscular Hemoglobin 30, Mean Corpuscular Hemoglobin Concent 32, Red Cell Distribution Width 17.5H, Platelet Count 220, Mean Platelet Volume 10.2, Immature Granulocyte % (Auto) 1, Neutrophils (%) (Auto) 60, Lymphocytes (%) (Auto) 22, Monocytes (%) (Auto) 11, Eosinophils (%) (Auto) 6, Basophils (%) (Auto) 1, Neutrophils # (Auto) 3.2, Lymphocytes # (Auto) 1.2, Monocytes # (Auto) 0.6, Eosinophils # (Auto) 0.3, Basophils # (Auto) 0.1, Immature Granulocyte # (Auto) 0.0, Sodium Level 139, Potassium Level 4.0, Chloride Level 109H, Carbon Dioxide Level 22, Anion Gap 8, Blood Urea Nitrogen 19H, Creatinine 1.12, Estimat Glomerular Filtration Rate > 60, BUN/Creatinine Ratio 17, Glucose Level 122H, Calcium Level 8.3L, Corrected Calcium 9.0, Total Bilirubin 0.4, Aspartate Amino Transf (AST/SGOT) 34, Alanine Aminotransferase (ALT/SGPT) 46, Alkaline Phosphatase 99, Total Protein 5.8L, Albumin 3.1L 05/19/20 05:29: White Blood Count 5.2, Red Blood Count 2.94L, Hemoglobin 8.7L, Hematocrit 27L, Mean Corpuscular Volume 93, Mean Corpuscular Hemoglobin 30, Mean Corpuscular Hemoglobin Concent 32, Red Cell Distribution Width 19.1H, Platelet Count 200, Mean Platelet Volume 10.4, Immature Granulocyte % (Auto) 0, Neutrophils (%) (Auto) 63, Lymphocytes (%) (Auto) 19, Monocytes (%) (Auto) 11, Eosinophils (%) (Auto) 5, Basophils (%) (Auto) 1, Neutrophils # (Auto) 3.3, Lymphocytes # (Auto) 1.0, Monocytes # (Auto) 0.6, Eosinophils # (Auto) 0.3, Basophils # (Auto) 0.0, Immature Granulocyte # (Auto) 0.0, Sodium Level 141, Potassium Level 4.1, Chloride Level 109H, Carbon Dioxide Level 22, Anion Gap 10, Blood Urea Nitrogen 18, Creatinine 0.97, Estimat Glomerular Filtration Rate > 60, BUN/Creatinine Ratio 19, Glucose Level 118H, Calcium Level 8.5, Corrected Calcium 9.1, Total Bilirubin 0.4, Aspartate Amino Transf (AST/SGOT) 19, Alanine Aminotransferase (ALT/SGPT) 27, Alkaline Phosphatase 105, Total Protein 6.2L, Albumin 3.3 05/20/20 08:30: Coronavirus 2019 (FILIPPO) Negative Pending Labs Laboratory Tests 05/09/20 05:55: White Blood Count 6.0, Red Blood Count 3.06, Hemoglobin 8.8, Hematocrit 28, Mean Corpuscular Volume 90, Mean Corpuscular Hemoglobin 29, Mean Corpuscular Hemoglobin Concent 32, Red Cell Distribution Width 14.6, Platelet Count 284, Mean Platelet Volume 10.1, Immature Granulocyte % (Auto) 0, Neutrophils (%) (A uto) 65, Lymphocytes (%) (Auto) 17, Monocytes (%) (Auto) 10, Eosinophils (%) (Auto) 7, Basophils (%) (Auto) 1, Neutrophils # (Auto) 3.9, Lymphocytes # (Auto) 1.0, Monocytes # (Auto) 0.6, Eosinophils # (Auto) 0.4, Basophils # (Auto) 0.1, Immature Granulocyte # (Auto) 0.0, Prothrombin Time 35.0, INR Comment 3.4, Sodium Level 138, Potassium Level 3.8, Chloride Level 106, Carbon Dioxide Level 23, Anion Gap 9, Blood Urea Nitrogen 19, Creatinine 0.90, Estimat Glomerular Filtration Rate > 60, BUN/Creatinine Ratio 21, Glucose Level 120, Calcium Level 8.5, Corrected Calcium 9.1, Iron Level 35, Total Bilirubin 0.6, Aspartate Amino Transf (AST/SGOT) 18, Alanine Aminotransferase (ALT/SGPT) 15, Alkaline Phosphatase 89, Total Protein 6.4, Albumin 3.3 05/10/20 06:00: Prothrombin Time 34.9, INR Comment 3.4, Vitamin B12 Level 435, Thyroid Stimulating Hormone (TSH) 1.81 05/11/20 07:15: Prothrombin Time 26.6, INR Comment 2.4 05/13/20 05:41: White Blood Count 5.1, Red Blood Count 2.73, Hemoglobin 7.9, Hematocrit 24, Mean Corpuscular Volume 89, Mean Corpuscular Hemoglobin 29, Mean Corpuscular Hemoglobin Concent 32, Red Cell Distribution Width 15.4, Platelet Count 262, Mean Platelet Volume 10.4, Immature Granulocyte % (Auto) 1, Neutrophils (%) (Auto) 52, Lymphocytes (%) (Auto) 28, Monocytes (%) (Auto) 11, Eosinophils (%) (Auto) 8, Basophils (%) (Auto) 1, Neutrophils # (Auto) 2.6, Lymphocytes # (Auto) 1.4, Monocytes # (Auto) 0.6, Eosinophils # (Auto) 0.4, Basophils # (Auto) 0.1, Immature Granulocyte # (Auto) 0.0, Prothrombin Time 18.8, INR Comment 1.5, Sodium Level 141, Potassium Level 4.0, Chloride Level 110, Carbon Dioxide Level 22, Anion Gap 9, Blood Urea Nitrogen 21, Creatinine 1.11, Estimat Glomerular Filtration Rate > 60, BUN/Creatinine Ratio 19, Glucose Level 116, Calcium Level 8.4, Corrected Calcium 9.0, Total Bilirubin 0.3, Aspartate Amino Transf (AST/SGOT) 37, Alanine Aminotransferase (ALT/SGPT) 35, Alkaline Phosphatase 95, Total Protein 5.9, Albumin 3.2 05/14/20 05:20: Prothrombin Time 18.0, INR Comment 1.4 05/15/20 05:51: Prothrombin Time 19.2, INR Comment 1.6 05/15/20 13:15: Stool Occult Blood Immunoassay POSITIVE 05/16/20 05:25: Prothrombin Time 21.1, INR Comment 1.8, White Blood Count 5.3, Red Blood Count 2.71, Hemoglobin 8.0, Hematocrit 25, Mean Corpuscular Volume 91, Mean Corpuscular Hemoglobin 30, Mean Corpuscular Hemoglobin Concent 32, Red Cell Distribution Width 17.5, Platelet Count 220, Mean Platelet Volume 10.2, Immature Granulocyte % (Auto) 1, Neutrophils (%) (Auto) 60, Lymphocytes (%) (Auto) 22, Monocytes (%) (Auto) 11, Eosinophils (%) (Auto) 6, Basophils (%) (Auto) 1, Neutrophils # (Auto) 3.2, Lymphocytes # (Auto) 1.2, Monocytes # (Auto) 0.6, Eosinophils # (Auto) 0.3, Basophils # (Auto) 0.1, Immature Granulocyte # (Auto) 0.0, Sodium Level 139, Potassium Level 4.0, Chloride Level 109, Carbon Dioxide Level 22, Anion Gap 8, Blood Urea Nitrogen 19, Creatinine 1.12, Estimat Glomerular Filtration Rate > 60, BUN/Creatinine Ratio 17, Glucose Level 122, Calcium Level 8.3, Corrected Calcium 9.0, Total Bilirubin 0.4, Aspartate Amino Transf (AST/SGOT) 34, Alanine Aminotransferase (ALT/SGPT) 46, Alkaline Phosphatase 99, Total Protein 5.8, Albumin 3.1 05/19/20 05:29: White Blood Count 5.2, Red Blood Count 2.94, Hemoglobin 8.7, Hematocrit 27, Mean Corpuscular Volume 93, Mean Corpuscular Hemoglobin 30, Mean Corpuscular Hemoglobin Concent 32, Red Cell Distribution Width 19.1, Platelet Count 200, Mean Platelet Volume 10.4, Immature Granulocyte % (Auto) 0, Neutrophils (%) (Auto) 63, Lymphocytes (%) (Auto) 19, Monocytes (%) (Auto) 11, Eosinophils (%) (Auto) 5, Basophils (%) (Auto) 1, Neutrophils # (Auto) 3.3, Lymphocytes # (Auto) 1.0, Monocytes # (Auto) 0.6, Eosinophils # (Auto) 0.3, Basophils # (Auto) 0.0, Immature Granulocyte # (Auto) 0.0, Sodium Level 141, Potassium Level 4.1, Chloride Level 109, Carbon Dioxide Level 22, Anion Gap 10, Blood Urea Nitrogen 18, Creatinine 0.97, Estimat Glomerular Filtration Rate > 60, BUN/Creatinine Ratio 19, Glucose Level 118, Calcium Level 8.5, Corrected Calcium 9.1, Total Bilirubin 0.4, Aspartate Amino Transf (AST/SGOT) 19, Alanine Aminotransferase (ALT/SGPT) 27, Alkaline Phosphatase 105, Total Protein 6.2, Albumin 3.3 05/20/20 08:30: Coronavirus 2019 (FILIPPO) Negative Discharge Home Medications: Active Scripts Active Dok (Docusate Sodium) 100 Mg Capsule 100 Mg PO BID PRN 30 Days Hydrocodone-Acetamin 5-325 mg (Hydrocodone/Acetaminophen) 1 Each Tablet 1 Tab PO Q6H PRN Eliquis (Apixaban) 5 Mg Tablet 5 Mg PO BID Reported Furosemide 40 Mg Tablet 40 Mg PO DAILY Losartan Potassium 50 Mg Tablet 50 Mg PO DAILY Isosorbide Mononitrate ER (Isosorbide Mononitrate) 30 Mg Tab.er.24h 30 Mg PO DAILY Coreg (Carvedilol) 25 Mg Tab 25 Mg PO BID Instructions to patient/family Please see electronic discharge instructions given to patient. Diagnosis/Problems Diagnosis/Problems (1) Status post right hip replacement (2) Atrial fibrillation (3) On warfarin therapy (4) Falls frequently (5) Cognitive deficits (6) Hypertension (7) Anemia (8) Dehydration Clinical Quality Measures DVT/VTE Risk/Contraindication: Risk Factor Score Per Nursin RFS Level Per Nursing on Admit: 4+=Very High ELAINE CASTRO DO May 22, 2020 05:49
[2020-05-22 05:57] VITALS: BP 169/72
[2020-05-22 08:00] VITALS: BP 176/78
[2020-05-22] MEDS: polyethylene glycoL POWDER 17 GM (MIRALAX) PACK PO SCH (09:04)
[2020-05-22] MEDS: ISOSORBIDE MONONITRATE 30 MG (IMDUR) TAB PO SCH (09:04)
[2020-05-22] MEDS: CARVEDILOL 12.5 MG (COREG) TABLET PO SCH (09:04)
[2020-05-22] MEDS: SENNA W/DOCUSATE (SENOKOT S) TABLET PO SCH (09:04)
[2020-05-22] MEDS: LOSARTAN 50 MG (COZAAR) TAB PO SCH (09:04)
[2020-05-22] MEDS: APIXABAN 5 MG (ELIQUIS) TABLET PO SCH (09:04)
--- NOTE | 2020-05-22 09:05 | Therapy Team Discharge Summary ---
Therapy Discharge Summary Discharge Recommendations Date of Discharge Occupational Therapy Decreased Activ Tolerance, Decreased UE Strength, Impaired Funct Balance, Impaired I ADL's, Impaired Self-Care Skills Speech-Language Pathology Patient was admitted to the ARU s/p fractured hip from a fall. Patient received skilled ST services based on the SLUMS score. Patient has achieved all ST goals and is discharging to his home today. Patient will receive home health services for his continued needs. PT Half-Way Goals Half-Way Goals PT Aquarium Tank Attendant Goals Time Frame: May 29, 2020 Roll Left to Right (QC): 6 Sit to Lying (QC): 6 Lying-Sitting on Side/Bed(QC): 6 Sit to Stand (QC): 6 Chair/Jtg-xk-Ensjr Xfer(QC): 6 Car Transfer (QC): 6 Does the Patient Walk: Yes Walk 10 feet (QC): 4 Walk 10ft-Uneven Surface(QC): 4 Walk 50ft with 2 Turns (QC): 4 Walk 150 ft (QC): 4 Wheel 50 feet with 2 turns (QC: 6 1 Step (curb) (QC): 4 4 Steps (QC): 4 12 Steps (QC): 88 Picking up an Object (QC): 4 OT Half-Way Goals Aquarium Tank Attendant Goals Time Frame: May 31, 2020 Eating (QC): 6 Oral Hygiene (QC): 6 Shower/Bathe Self (QC): 6 Upper Body Dressing (QC): 6 Lower Body Dressing (QC): 6 On/Off Footwear (QC): 6 Toileting Hygiene (QC): 6 Toilet/Commode Transfer (QC): 6 Additional Goals: 1-Demonstrate ADL Tasks, 2-Verbalize Understanding, 3-Impr oveStrength/Manuela 1=Demonstrate adherence to instructed precautions during ADL tasks. 2=Patient will verbalize/demonstrate understanding of assistive devices/modifications for ADL. 3=Patient will improve strength/tolerance for activity to enable patient to perform ADL's. Speech Aquarium Tank Attendant Goals Half-Way Goals Patient will improve cognitive-communication abilities in order to complete daily tasks with minimal assist. VANI CHAVEZ May 22, 2020 09:05
--- NOTE | 2020-05-22 10:41 | Therapy Team Discharge Summary ---
Therapy Discharge Summary Discharge Recommendations Date of Discharge Occupational Therapy Pt admitted to ARU s/p R MILDRED. At OF, pt indicates he was independent with all ADLS and functional mobility using FWW. At evaluation, pt was independent with feeding, SBA oral hygiene, min A showering, set up upper body dressing, total assist lower body dressing, total assist footwear, and max A toileting. OT txs focus on increasing pt's independence and safety with ADLs and functional mobility, education on hip precautions and AE for lower body dressing, and increasing BUE strength and functional endurance. At discharge, pt was independent with feeding, CGA oral hygiene, CGA showering, set up upper body dressing, min A lower body dressing, min A footwear, and CGA toileting. Pt has poor carryover of AE and hip precautions, requiring cues throughout treatment sessions. Pt made functional progress towards goals, but only attained goal of independent feeding. AE recommendations include hip kit. Pt is discharging from facility on this date, thus d/c from OT at this time. Further skilled OT recommended. Decreased Activ Tolerance, Decreased UE Strength, Impaired Funct Balance, Impaired I ADL's, Impaired Self-Care Skills PT Penitentiary Goals Value Advisor Goals PT Value Advisor Goals Time Frame: May 29, 2020 Roll Left to Right (QC): 6 Sit to Lying (QC): 6 Lying-Sitting on Side/Bed(QC): 6 Sit to Stand (QC): 6 Chair/Dsy-bn-Yzjmh Xfer(QC): 6 Car Transfer (QC): 6 Does the Patient Walk: Yes Walk 10 feet (QC): 4 Walk 10ft-Uneven Surface(QC): 4 Walk 50ft with 2 Turns (QC): 4 Walk 150 ft (QC): 4 Wheel 50 feet with 2 turns (QC: 6 1 Step (curb) (QC): 4 4 Steps (QC): 4 12 Steps (QC): 88 Picking up an Object (QC): 4 OT Value Advisor Goals Value Advisor Goals Time Frame: May 31, 2020 Eating (QC): 6 (met) Oral Hygiene (QC): 6 (not met) Shower/Bathe Self (QC): 6 (not met) Upper Body Dressing (QC): 6 (not met) Lower Body Dressing (QC): 6 (not met) On/Off Footwear (QC): 6 (not met) Toileting Hygiene (QC): 6 (not met) Toilet/Commode Transfer (QC): 6 (not met) Additional Goals: 1-Demonstrate ADL Tasks, 2-Verbalize Understanding, 3- ImproveStrength/Manuela 1=Demonstrate adherence to instructed precautions during ADL tasks. 2=Patient will verbalize/demonstrate understanding of assistive devices/modifications for ADL. 3=Patient will improve strength/tolerance for activity to enable patient to perform ADL's. Speech Penitentiary Goals Penitentiary Goals Patient will improve cognitive-communication abilities in order to complete daily tasks with minimal assist. LEILANI CARSON OT May 22, 2020 10:41
[2020-05-22 14:17] VITALS: BP 176/78
--- NOTE | 2020-05-22 14:17 | NUR ---
CM/SS DISCHARGE Multiple psychosocial activities this date to finalize complex discharge. Patient's son wale Wright will be taking him to a new residential apartment at [facility], [facility], [place], [place]. Patient spouse Ernestina continues to reside in their trailer home, but family intend to get her moved with patient in about one week. Summary of today's activities to facilitate smooth transition into assisted living: Family had litigation attorney send Durable Power of Project Structural Engineer document for patient to sign. Reviewed with patient who was in agreement for the designation of his son Shreyas Wright in this role. Provided two witnesses and a notary for completion. Copy to [facility] so that she could contact Shreyas regarding [facility] contract review/signature. Shreyas remains in [place] so all the timelines regarding his business there and these contacts had to be coordinated as well. Provided original to family and recommended this remain with safe papers, along with additional copies for other entities as needed. Shreyas's Arabella apparently took the trailer with patient's possessions to [facility] while Wale drove here to transport patient. [facility] staff agreed to assist with getting the room set up for his arrival. DME: FWW ordered through [facility] and delivered to patient room prior to discharge. Patient's current FWW was apparently old and questionably safe for ambulation. Rx: Patient's Rx was transmitted to his primary pharmacy of [facility] in [place], [place]. After exploring options, freelance copywriter cancelled the [facility] prescription and coordinated them with [facility] which is across the street from [facility] in [place]. They will bubble pack the Rx for the assisted living, facility understands that pharmacy will need the hard original script for the hydrocodone. Faxed discharge instructions and orders to [facility]. Completed their physician admission packet with Dr. Millan, required for patient to admit. Patient's PCP has retired and he had not yet established with anyone else in that office. [facility] understands Dr. Millan agreed to follow for a short interim while they bridge with physicians in their community on behalf of patient. IMM2 completed timely. Patient has been participating in the discharge planning process over several days and is in agreement for this next step. Patient's cell phone was left in his room, notified son Wale but they were too far away to loop back. He asked us to mail it to patient at [facility] c/o [facility].
--- NOTE | 2020-05-22 14:23 | Therapy Team Discharge Summary ---
Therapy Discharge Summary Discharge Recommendations Date of Discharge Physical Therapy Patient came to rehab following a right MILDRED. Upon evaluation patient performed bed mobility with independence, supine <-> sit with min assist, sit <->stand and transfers with min assist, car transfer min assist, ambulated 20' with a rolling walker with min assist (including 10' over an uneven surface), and propelled a manual WC 150' with SBA. Patient has been performing bed mobility and transfer training, balance and endurance training, functional strengthening, stair training, gait training, and education. Patient has made some progress but has only met his residential goals for bed mobility. Now, patient performs bed mobility with independence, supine <-> sit and sit <-> stand with SBA, car transfer SBA, ambulates 60' with a rolling walker with CGA (including 50' with at least 2 turns of 90 degrees and 10' over an uneven surface), and went up and down 1 step using a rolling walker with min assist. Patient is being discharged from this facility today and will be discharged from PT at this time. Occupational Therapy Decreased Activ Tolerance, Decreased UE Strength, Impaired Funct Balance, Impaired I ADL's, Impaired Self-Care Skills PT Mri Specialist Goals Mri Specialist Goals PT Mcfp Goals Time Frame: May 29, 2020 Roll Left to Right (QC): 6 Sit to Lying (QC): 6 Lying-Sitting on Side/Bed(QC): 6 Sit to Stand (QC): 6 Chair/Koe-lh-Iopec Xfer(QC): 6 Car Transfer (QC): 6 Does the Patient Walk: Yes Walk 10 feet (QC): 4 Walk 10ft-Uneven Surface(QC): 4 Walk 50ft with 2 Turns (QC): 4 Walk 150 ft (QC): 4 Wheel 50 feet with 2 turns (QC: 6 1 Step (curb) (QC): 4 4 Steps (QC): 4 12 Steps (QC): 88 Picking up an Object (QC): 4 OT Mri Specialist Goals Mri Specialist Goals Time Frame: May 31, 2020 Eating (QC): 6 (met) Oral Hygiene (QC): 6 (not met) Shower/Bathe Self (QC): 6 (not met) Upper Body Dressing (QC): 6 (not met) Lower Body Dressing (QC): 6 (not met) On/Off Footwear (QC): 6 (not met) Toileting Hygiene (QC): 6 (not met) Toilet/Commode Transfer (QC): 6 (not met) Additional Goals: 1-Demonstrate ADL Tasks, 2-Verbalize Understanding, 3- ImproveStrength/Manuela 1=Demonstrate adherence to instructed precautions during ADL tasks. 2=Patient will verbalize/demonstrate understanding of assistive devices/modifications for ADL. 3=Patient will improve strength/tolerance for activity to enable patient to perform ADL's. Speech Mri Specialist Goals Mcfp Goals Patient will improve cognitive-communication abilities in order to complete daily tasks with minimal assist. EAMON HENDRICKSON PT May 22, 2020 14:23
== END 2020-05-22 14:00 | DRG 560 ==
PROVIDERS: ADMIT Internal Medicine; ATTEND Internal Medicine
DX: Z47.1 Aftercare following joint replacement surgery (principal); I42.9 Cardiomyopathy, unspecified; Z96.641 Presence of right artificial hip joint; Z91.81 History of falling; F03.90 Unspecified dementia, unspecified severity, without behavioral disturbance, psychotic disturbance, mood disturbance, and anxiety; G62.9 Polyneuropathy, unspecified; I25.10 Atherosclerotic heart disease of native coronary artery without angina pectoris; I10 Essential (primary) hypertension; Z66 Do not resuscitate; K59.00 Constipation, unspecified; F32.9 Major depressive disorder, single episode, unspecified; I48.91 Unspecified atrial fibrillation; Z79.01 Long term (current) use of anticoagulants; D64.9 Anemia, unspecified; Z95.0 Presence of cardiac pacemaker; Z95.1 Presence of aortocoronary bypass graft
CPT/HCPCS: 36415; 80053; 82274; 82607; 83540; 84443; 85025; 85610; 87635